=== PATIENT | female | born 1980 | race Caucasian/White ===

== ENCOUNTER 2017-08-31 17:26 | Inpatient (IN) | payer MEDICAID, SELFPAY ==
[2017-08-31] VITALS (9 sets, daily range): BP systolic 118–136; BP diastolic 56–86; PULSE 83–94; RESP 14–16; TEMP 36.6–37.1; O2SAT 95–100; BMI 28.0; BMI 30.2; BMI 30.3
--- NOTE | 2017-08-31 18:12 | CT_ITS ---
STUDY: CT BRAIN WITHOUT CONTRAST REASON FOR EXAM: Female, 36 years old. Confusion RADIATION DOSAGE (If Supplied By Facility): CTDIvol = ( 44.99 ) mGy, DLP = ( 711.75 ) mGycm TECHNIQUE: Transaxial CT imaging of the brain was performed without administration of intravenous contrast material. Individualized dose optimization techniques were used for this CT. COMPARISON: None. FINDINGS: Normal soft tissue structures. Normal calvarium. Normal size ventricles and extra-axial spaces for the patient's age. Normal white matter tracts of the cerebral hemispheres. Normal basal ganglia and thalami. Normal brainstem. Normal cerebellum. There is no intracranial hemorrhage. There are no findings of an acute ischemic infarction. Normal visualized paranasal sinuses. CT/Brain/Head without Contrast IMPRESSION: Normal unenhanced CT scan of the brain. No acute intracranial process. Electronically Signed: Angelito Dangelo DO at 19:31 EDT , Service support ,
[2017-08-31 18:29] LABS: Bacteria 0 SEEN /hpf (None Seen); Red Blood Cells-Urine 0 SEEN /hpf (0-5); White Blood Cells 0 SEEN /hpf (0-5)
[2017-08-31 18:33] LABS: Absolute Lymphocyte Count 1.39 X10^3/ul (0.83-4.51); Absolute Neutrophil Count 2.9 X10^3/uL (2.0-7.7); Basophil# 0.01 X10^3/uL; Basophil% 0.2 % (0-1); Eosinophil# 0.12 X10^3/uL; Eosinophils% 2.4 % (0-5); Hematocrit 21.5 % (37-47); Lymphocyte # 1.39 X10^3/ul (4.0); Lymphocyte % 28.3 % (19-41); Mean Corp Hgb Conc 24.2 g/gl (32-36); Mean Corpuscular Hgb 16.9 pg (27.0-32.0); Mean Corpuscular Volume 69.8 fL (81-99); Mean Platelet Vol. 9.1 fl (6.2-12.0); Monocyte# 0.49 X10^3/uL; Neutrophil # 2.91 X10^3/uL (2.7-7.7); Neutrophil % 59.1 % (47-70); Platelet Count 171 K/mm3 (150-450); RBC Distribution Width CV 21.8 % (11.6-14.6); RBC Distribution Width SD 53.8 fl (35.1-43.9); Red Blood Count 3.08 M/mm3 (4.2-5.4); White Blood Count 4.9 K/mm3 (4.4-11.0)
[2017-08-31 18:34] LABS: Color, Urine Yellow (Yellow); Glucose, Dipstick Normal (Normal); Ketone-Dipstick 5 mg/dl (Negative); Leukocyte Esterase-Dipstick 25 /ul (Negative); Nitrite-Dipstick Negative (Negative); Occult Blood-Urine 25 /ul (Negative); Protein-Dipstick 15 mg/dl (Negative); Specific Gravity, Urine 1.025 (1.002-1.030); Urine Clarity Clear (Clear); Urine Urobilinogen 4 mg/dl (Normal)
[2017-08-31 18:34] LABS: Hemoglobin 5.2 g/dl (12.0-15.0)
[2017-08-31 18:35] LABS: Differential Indicated SCAN CRITERIA MET; POSITIVE COUNT YES; POSITIVE DIFFERENTIAL NO; POSITIVE MORPHOLOGY YES
--- NOTE | 2017-08-31 18:35 | ED.RN ---
LAB RESULTED HGB IS 5.2, PHYSICIAN NOTIFIED
[2017-08-31 18:38] LABS: Urine Bilirubin Dipstick 1 mg/dL (Negative)
[2017-08-31 18:40] LABS: Squamous Epithelial Cells - UA 0-5 SEEN /hpf (5-10)
[2017-08-31 18:41] LABS: Mucous, Urine 4+ /hpf (<or=2+)
[2017-08-31 18:44] LABS: Anion Gap 7 (5-15); BUN 8 mg/dL (7-18); BUN/Creat Ratio 14.7 RATIO (10-20); Calcium,Total 7.9 mg/dL (8.5-10.1); Chloride 108 mmol/L (98-107); Creatinine, Serum 0.54 mg/dL (0.55-1.02); EST Glomerular Filtration Rate 133 mL/min (>60); Est Glom Filt Rate - Afr Amer 161 mL/min (>60); Estimated Creatinine Clearance 121.98 ml/min; Glucose 113 mg/dL (74-106); Potassium 3.4 mmol/L (3.5-5.1); Sodium Level 140 mmol/L (136-145)
[2017-08-31 18:51] LABS: Pregnancy, Serum, hCG Quali. NEGATIVE Negative (0-9 Nonpreg)
[2017-08-31 19:01] LABS: Amphetamine Urine VISTA POSITIVE (<1000 ng/mL); Barbiturate Urine VISTA NEGATIVE (< 200 ng/mL); Benzodiazepine Urine VISTA NEGATIVE (< 200 ng/mL); Cocaine Urine VISTA NEGATIVE (< 300 ng/mL); Ecstacy Urine VISTA POSITIVE (< 500 ng/mL); Methadone Urine VISTA NEGATIVE (< 300 ng/mL); PCP Urine VISTA NEGATIVE (< 25 ng/mL); THC Urine VISTA NEGATIVE (< 50 ng/mL); Vista UDS pH Range 5
--- NOTE | 2017-08-31 19:05 | ED.RN ---
LAB CALLS WITH CRITICAL RESULT, REPEAT HEMAGLOBIN 5.2, DR. GARDNER MADE AWARE.
[2017-08-31 19:08] LABS: Hemoglobin 5.2 g/dl (12.0-15.0)
[2017-08-31 19:30] LABS: Alcohol, Blood (Medical)-Serum < 3.0 mg/dL
[2017-08-31 19:31] LABS: Microcytosis 3+; Platelet Estimate ADEQUATE (ADEQ); Polychromasia RARE
[2017-08-31 19:32] LABS: Anisocytosis 1+; Hypochromasia 3+
--- NOTE | 2017-08-31 19:55 | PCM.HP.STD ---
Problem List (1) GERD (gastroesophageal reflux disease) Status: Chronic Qualifiers: Esophagitis presence: esophagitis presence not specified Qualified Code(s): K21.9 - Gastro-esophageal reflux disease without esophagitis (2) Chronic pain syndrome Status: Chronic (3) Anxiety Status: Chronic (4) Tobacco use Status: Chronic (5) Polysubstance abuse Status: Chronic (6) Anemia Status: Acute Qualifiers: Anemia type: unspecified type Qualified Code(s): D64.9 - Anemia, unspecified History of Present Illness Date of Admission: 08/31/17 Chief Complaint: Confusion, fatigue. The patient is a 36 y/o F w/ PMHx: Fe Deficiency Anemia, GERD, Chronic Pain Syndrome, Anxiety/ADHD, Tobacco use, Polysubstance abuse who presents to the [facility] ED on 08/31/17 with 4-5 day history of confusion, fatigue, lethargy intermittently, noted have to been pulled over per the police while driving in [facility] over the weekend but kept insisting to the officer that she was in [place]. She denies any history of black or bright red blood per rectum. She does note history of gastric bypass ~10 years prior and has not been taking the vitamins she was recommended. In the ED work-up included T 97.9, HR 93, BP 118/57, RR 16, 99% on RA, CBC w/ WBC 4.9, Hgb 5.2, MCV 69.8, Plt 171 without marked shift, BMP w/ K 3.4, Chl 108, glucose 113, negative , UA not marked appearing, CT head without acute findings, UDS w/ opiates, amphetamine, MDMA-methampetamine, EtOH negative. Past Medical History Past Medical History (Chronic Problems): Chronic Problems GERD (gastroesophageal reflux disease) (Chronic) Chronic pain syndrome (Chronic) Anxiety (Chronic) Tobacco use (Chronic) Polysubstance abuse (Chronic) Allergies Penicillins Allergy (Verified 08/31/17 17:28) Anaphylaxis venlafaxine HCl [From Effexor] Adverse Reaction (Verified 08/31/17 17:28) Other Home Medications: Ambulatory Orders Medication Instructions Recorded Omeprazole [Prilosec] 20 mg PO DAILY 12/27/15 Lorazepam [Ativan] 1 mg PO TID 01/13/16 Oxycodone HCl/Acetaminophen 1 - 2 tablet PO Q6H PRN PRN #60 01/28/16 [Percocet 5/325] tablet Ibuprofen [Ibu] 800 mg PO Q6H PRN PRN 08/31/17 Surgical History: - - Tonsillectomy, bilateral tubal ligation, gastric bypass. Psychiatric History: Anxiety, Attn. deficit disorder FEE CLERK History: No pertinent FEE CLERK history Lives: With Family - She notes she lives at home with her 15-year-old and 12-year-old child. She does have a 21-year-old child who is currently sitting her children. Smoking Status: Current every day smoker Tobacco Use: Cigarettes - Approximately one half pack per day tobacco use. Alcohol: Occasional - She notes intermittent alcohol intake, approximately every 1-2 weeks socially. Drugs: None - *Family History Maternal History Items: Heart Disease, Hypertension Paternal History Items: Heart Disease, Hypertension Review of Systems Constitutional: Reports: Malaise, Weakness, Fatigue. Denies: Chills, Fever, Weight Change HEENT: Denies: Head Aches, Sinus Congestion, Sinus Drainage Cardiovascular: Denies: Chest Pain, Palpitations Respiratory: Denies: Cough, Shortness of breath at rest, Sputum production Gastrointestinal: Denies: Abdominal Pain, Nausea, Vomiting Genitourinary: Denies: Dysuria Musculoskeletal: Denies: Joint Pain, Joint Tenderness Skin: Reports: Skin Changes. Denies: Rash, Wounds Neurological: Reports: Confusion. Denies: Focal weakness, Numbness, Tingling Psychiatric: Reports: Anxiety. Denies: Depression, Homicidal Ideations, Suicidal Ideations Hematologic/ Lymphatic: Reports: Anemia. Denies: Easy Bruising, Easy Bleeding VTE Information - Inpt Only VTE Present on Admission: No VTE Mechan Device Prophylaxis: SCD's VTE Pharm Prophylaxis ordered?: No Reason prophylaxis not ordered:: Medical Contraindication Patient Problems: Active and Suspected Problems Anemia (Acute) Subjective: Seated upright in the ED bed, NAD, currently oriented and alert but does admit that she has been intermittently confused. Objective: Physical Examination: General: awake, alert, oriented x 3 and cooperative, seated upright in the ED bed in no apparent distress. Skin: pale color, turgor, no icterus, cyanosis, scattered picked regions. HEENT: AT/NC, EOMI, PERRLA, mildly dry MM, no carotid bruits or JVD noted. Lungs: CTA bilaterally, moderate effort, mild decrease BL bases, no rales, ronchi or wheezing. Heart: Regular rate and rhythm; no gallop, rub audible. Abdomen: soft, NTTP, ND, normal BS, no HSM. Extremities: no cyanosis, clubbing, or edema. Neurological: patient awake, alert, oriented as noted; cognitive function appears currently intact; pupils equally reactive to light and accomodation; cranial nerves II-XII grossly normal, moving all 4 extremities, no focal deficits, strength mild to moderately globally decreased. Psychiatric: affect appears normal, mildly odd behavior, no acute evidence of depressive or anxiety feelings, very hyper. - Physical Exam Vital Signs Temp Pulse Resp BP Pulse Ox 97.9 F 91 16 128/56 H 100 08/31/17 17:27 08/31/17 19:34 08/31/17 19:34 08/31/17 19:34 08/31/17 19:34 Oxygen Delivery Method Room Air Weight: 163 lb 12.855 oz Body Mass Index (BMI) 28.0 Laboratory Tests Past 24 Hrs 08/31/17 08/31/17 08/31/17 17:44 17:44 18:23 WBC 4.9 RBC 3.08 L Hgb 5.2 L* Hct 21.5 L MCV 69.8 L MCH 16.9 L MCHC 24.2 L RDW 21.8 H RDW Differential 53.8 H Plt Count 171 MPV 9.1 Immature Gran % (Auto) 0.000 Neut % (Auto) 59.1 Lymph % (Auto) 28.3 [place] % (Auto) 10.0 Eos % (Auto) 2.4 Baso % (Auto) 0.2 Absolute Neuts (auto) 2.9 Absolute Lymphs (auto) 1.39 Total Counted Not Reportable Diff Path Review May foll Platelet Estimate ADEQUATE Polychromasia RARE Hypochromasia 3+ Anisocytosis 1+ Microcytosis 3+ Sodium Potassium Chloride Carbon Dioxide Anion Gap BUN Creatinine Estim Creat Clear Calc Est GFR (MDRD) Af Amer Est GFR (MDRD) Non-Af BUN/Creatinine Ratio Glucose Calcium Serum , Qual Urine Color Yellow Urine Clarity Clear Urine pH 5.0 Ur Specific [place] 1.025 Urine Protein 15 H Urine Glucose (UA) Normal Urine Ketones 5 H Urine Occult Blood 25 H Urine Nitrite Negative Urine Bilirubin 1 H Urine Urobilinogen 4 H Ur Leukocyte Esterase 25 H Urine RBC 0 SEEN Urine WBC 0 SEEN Ur Squamous Epith Cells 0-5 SEEN Urine Bacteria 0 SEEN Urine Mucus 4+ Urine Opiates Screen POSITIVE H Urine Methadone Screen NEGATIVE Ur Barbiturates Screen NEGATIVE Ur Phencyclidine Scrn NEGATIVE Ur Amphetamines Screen POSITIVE H U Methamphetamin-MDMA POSITIVE H U Benzodiazepines Scrn NEGATIVE Urine Cocaine Screen NEGATIVE U Cannabinoids Screen NEGATIVE Ur Drug Screen Comment Ethyl Alcohol Blood Type Antibody Screen Crossmatch 08/31/17 08/31/17 08/31/17 18:23 18:23 18:23 WBC RBC Hgb Hct MCV MCH MCHC RDW RDW Differential Plt Count MPV Immature Gran % (Auto) Neut % (Auto) Lymph % (Auto) [place] % (Auto) Eos % (Auto) Baso % (Auto) Absolute Neuts (auto) Absolute Lymphs (auto) Total Counted Diff Path Review Platelet Estimate Polychromasia Hypochromasia Anisocytosis Microcytosis Sodium 140 Potassium 3.4 L Chloride 108 H Carbon Dioxide 25.0 Anion Gap 7 BUN 8 Creatinine 0.54 L Estim Creat Clear Calc 121.98 Est GFR (MDRD) Af Amer 161 Est GFR (MDRD) Non-Af 133 BUN/Creatinine Ratio 14.7 Glucose 113 H Calcium 7.9 L Serum , Qual NEGATIVE Urine Color Urine Clarity Urine pH Ur Specific [place] Urine Protein Urine Glucose (UA) Urine Ketones Urine Occult Blood Urine Nitrite Urine Bilirubin Urine Urobilinogen Ur Leukocyte Esterase Urine RBC Urine WBC Ur Squamous Epith Cells Urine Bacteria Urine Mucus Urine Opiates Screen Urine Methadone Screen Ur Barbiturates Screen Ur Phencyclidine Scrn Ur Amphetamines Screen U Methamphetamin-MDMA U Benzodiazepines Scrn Urine Cocaine Screen U Cannabinoids Screen Ur Drug Screen Comment Ethyl Alcohol < 3.0 Blood Type Antibody Screen Crossmatch 08/31/17 08/31/17 08/31/17 18:35 18:35 18:55 WBC RBC Hgb 5.2 L* Hct MCV MCH MCHC RDW RDW Differential Plt Count MPV Immature Gran % (Auto) Neut % (Auto) Lymph % (Auto) [place] % (Auto) Eos % (Auto) Baso % (Auto) Absolute Neuts (auto) Absolute Lymphs (auto) Total Counted Diff Path Review Platelet Estimate Polychromasia Hypochromasia Anisocytosis Microcytosis Sodium Potassium Chloride Carbon Dioxide Anion Gap BUN Creatinine Estim Creat Clear Calc Est GFR (MDRD) Af Amer Est GFR (MDRD) Non-Af BUN/Creatinine Ratio Glucose Calcium Serum , Qual Urine Color Urine Clarity Urine pH Ur Specific [place] Urine Protein Urine Glucose (UA) Urine Ketones Urine Occult Blood Urine Nitrite Urine Bilirubin Urine Urobilinogen Ur Leukocyte Esterase Urine RBC Urine WBC Ur Squamous Epith Cells Urine Bacteria Urine Mucus Urine Opiates Screen Urine Methadone Screen Ur Barbiturates Screen Ur Phencyclidine Scrn Ur Amphetamines Screen U Methamphetamin-MDMA U Benzodiazepines Scrn Urine Cocaine Screen U Cannabinoids Screen Ur Drug Screen Comment Ethyl Alcohol Blood Type A NEGATIVE Antibody Screen NEGATIVE Crossmatch See Detail Assessment/Plan All Active Problems Anemia (Acute) The patient is a 36 y/o F w/ PMHx: Fe Deficiency Anemia, GERD, Chronic Pain Syndrome, Anxiety/ADHD, Tobacco use, Polysubstance abuse who presents to the [facility] ED on 08/31/17 with 4-5 day history of confusion, fatigue, lethargy intermittently. (1) Acute on Chronic Fe Deficiency Anemia: Unclear etiology, likely associated w/ gastric bypass and not taking appropriate supplementation but must rule out GI etiology also especially given serial usage of IBU for chornic pain, will obtain guiac, iron panel/ferritin/vitamin B12/folic acid per ED prior to PRBC administration. Admission Hgb 5.2, will admit to PCU given stable VS, obtain serial H+H q 6 hours, T+C per ED with 2 u PRBC pending, maintain on IV PPI, NPO status, pending Surgery consultation as well as Hem/Onc as suspect likely secondary to deficiency. (2) Hypokalemia: Admission K 3.4, will supplement and repeat BMP in AM. (3) Anxiety, ADHD: In the ED alert and oriented, will continue home regimen ativan 1 mg po TID and adderall 20 mg BID (notes when taking classes takes it 20 mg TID). Of note UDS with NO BZD present. (3) Chronic Pain Syndrome: Maintained outpatient on chronic percocet, UDS w/ + opiates. (4) Tobacco Abuse: Encouraged cessation, inpatient consultation per RT, NR if desired. (5) GERD: IV PPI as noted. (6) DVT Prophylaxis: SCDs, defer chemoprophylaxis given acute presentation. Code Visit Inpatient E&M: 85732 Init Hosp L3
--- NOTE | 2017-08-31 20:07 | HP.PCM_ITS ---
Problem List (1) GERD (gastroesophageal reflux disease) Status: Chronic Qualifiers: Esophagitis presence: esophagitis presence not specified Qualified Code(s) : K21.9 - Gastro-esophageal reflux disease without esophagitis (2) Chronic pain syndrome Status: Chronic (3) Anxiety Status: Chronic (4) Tobacco use Status: Chronic (5) Polysubstance abuse Status: Chronic (6) Anemia Status: Acute Qualifiers: Anemia type: unspecified type Qualified Code(s): D64.9 - Anemia, unspecified History of Present Illness Date of Admission: 08/31/17 Chief Complaint: Confusion, fatigue. The patient is a 36 y/o F w/ PMHx: Fe Deficiency Anemia, GERD, Chronic Pain Syndrome, Anxiety/ADHD, Tobacco use, Polysubstance abuse who presents to the [facility] ED on 08/31/17 with 4-5 day history of confusion, fatigue, lethargy intermittently, noted have to been pulled over per the police while driving in [facility] over the weekend but kept insisting to the officer that she was in [place]. She denies any history of black or bright red blood per rectum. She does note history of gastric bypass ~10 years prior and has not been taking the vitamins she was recommended. In the ED work-up included T 97.9, HR 93, BP 118/ 57, RR 16, 99% on RA, CBC w/ WBC 4.9, Hgb 5.2, MCV 69.8, Plt 171 without marked shift, BMP w/ K 3.4, Chl 108, glucose 113, negative , UA not marked appearing, CT head without acute findings, UDS w/ opiates, amphetamine, MDMA- methampetamine, EtOH negative. Past Medical History Past Medical History (Chronic Problems): Chronic Problems GERD (gastroesophageal reflux disease) (Chronic) Chronic pain syndrome (Chronic) Anxiety (Chronic) Tobacco use (Chronic) Polysubstance abuse (Chronic) Allergies Penicillins Allergy (Verified 08/31/17 17:28) Anaphylaxis venlafaxine HCl [From Effexor] Adverse Reaction (Verified 08/31/17 17:28) Other Home Medications: Ambulatory Orders Medication Instructions Recorded Omeprazole [Prilosec] 20 mg PO DAILY 12/27/15 Lorazepam [Ativan] 1 mg PO TID 01/13/16 Oxycodone HCl/Acetaminophen 1 - 2 tablet PO Q6H PRN PRN #60 01/28/16 [Percocet 5/325] tablet Ibuprofen [Ibu] 800 mg PO Q6H PRN PRN 08/31/17 Surgical History: - - Tonsillectomy, bilateral tubal ligation, gastric bypass. Psychiatric History: Anxiety, Attn. 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 She does have a 21-year-old child who is currently sitting her children. Smoking Status: Current every day smoker Tobacco Use: Cigarettes - Approximately one half pack per day tobacco use. Alcohol: Occasional - She notes intermittent alcohol intake, approximately every 1-2 weeks socially. Drugs: None - *Family History Maternal History Items: Heart Disease, Hypertension Paternal History Items: Heart Disease, Hypertension Review of Systems Constitutional: Reports: Malaise, Weakness, Fatigue. Denies: Chills, Fever, Weight Change HEENT: Denies: Head Aches, Sinus Congestion, Sinus Drainage Cardiovascular: Denies: Chest Pain, Palpitations Respiratory: Denies: Cough, Shortness of breath at rest, Sputum production Gastrointestinal: Denies: Abdominal Pain, Nausea, Vomiting Genitourinary: Denies: Dysuria Musculoskeletal: Denies: Joint Pain, Joint Tenderness Skin: Reports: Skin Changes. Denies: Rash, Wounds Neurological: Reports: Confusion. Denies: Focal weakness, Numbness, Tingling Psychiatric: Reports: Anxiety. Denies: Depression, Homicidal Ideations, Suicidal Ideations Hematologic/ Lymphatic: Reports: Anemia. Denies: Easy Bruising, Easy Bleeding VTE Information - Inpt Only VTE Present on Admission: No VTE Mechan Device Prophylaxis: SCD's VTE Pharm Prophylaxis ordered?: No Reason prophylaxis not ordered:: Medical Contraindication Patient Problems: Active and Suspected Problems Anemia (Acute) Subjective: Seated upright in the ED bed, NAD, currently oriented and alert but does admit that she has been intermittently confused. Objective: Physical Examination: General: awake, alert, oriented x 3 and cooperative, seated upright in the ED bed in no apparent distress. Skin: pale color, turgor, no icterus, cyanosis, scattered picked regions. HEENT: AT/NC, EOMI, PERRLA, mildly dry MM, no carotid bruits or JVD noted. Lungs: CTA bilaterally, moderate effort, mild decrease BL bases, no rales, ronchi or wheezing. Heart: Regular rate and rhythm; no gallop, rub audible. Abdomen: soft, NTTP, ND, normal BS, no HSM. Extremities: no cyanosis, clubbing, or edema. Neurological: patient awake, alert, oriented as noted; cognitive function appears currently intact; pupils equally reactive to light and accomodation; cranial nerves II-XII grossly normal, moving all 4 extremities, no focal deficits, strength mild to moderately globally decreased. Psychiatric: affect appears normal, mildly odd behavior, no acute evidence of depressive or anxiety feelings, very hyper. - Physical Exam Vital Signs Temp Pulse Resp BP Pulse Ox 97.9 F 91 16 128/56 H 100 08/31/17 17:27 08/31/17 19:34 08/31/17 19:34 08/31/17 19:34 08/31/17 19:34 Oxygen Delivery Method Room Air Weight: 163 lb 12.855 oz Body Mass Index (BMI) 28.0 Laboratory Tests Past 24 Hrs 08/31/17 08/31/17 08/31/17 17:44 17:44 18:23 WBC 4.9 RBC 3.08 L Hgb 5.2 L* Hct 21.5 L MCV 69.8 L MCH 16.9 L MCHC 24.2 L RDW 21.8 H RDW Differential 53.8 H Plt Count 171 MPV 9.1 Immature Gran % (Auto) 0.000 Neut % (Auto) 59.1 Lymph % (Auto) 28.3 [place] % (Auto) 10.0 Eos % (Auto) 2.4 Baso % (Auto) 0.2 Absolute Neuts (auto) 2.9 Absolute Lymphs (auto) 1.39 Total Counted Not Reportable Diff Path Review May foll Platelet Estimate ADEQUATE Polychromasia RARE Hypochromasia 3+ Anisocytosis 1+ Microcytosis 3+ Sodium Potassium Chloride Carbon Dioxide Anion Gap BUN Creatinine Estim Creat Clear Calc Est GFR (MDRD) Af Amer Est GFR (MDRD) Non-Af BUN/Creatinine Ratio Glucose Calcium Serum , Qual Urine Color Yellow Urine Clarity Clear Urine pH 5.0 Ur Specific [place] 1.025 Urine Protein 15 H Urine Glucose (UA) Normal Urine Ketones 5 H Urine Occult Blood 25 H Urine Nitrite Negative Urine Bilirubin 1 H Urine Urobilinogen 4 H Ur Leukocyte Esterase 25 H Urine RBC 0 SEEN Urine WBC 0 SEEN Ur Squamous Epith Cells 0-5 SEEN Urine Bacteria 0 SEEN Urine Mucus 4+ Urine Opiates Screen POSITIVE H Urine Methadone Screen NEGATIVE Ur Barbiturates Screen NEGATIVE Ur Phencyclidine Scrn NEGATIVE Ur Amphetamines Screen POSITIVE H U Methamphetamin-MDMA POSITIVE H U Benzodiazepines Scrn NEGATIVE Urine Cocaine Screen NEGATIVE U Cannabinoids Screen NEGATIVE Ur Drug Screen Comment Ethyl Alcohol Blood Type Antibody Screen Crossmatch 08/31/17 08/31/17 08/31/17 18:23 18:23 18:23 WBC RBC Hgb Hct MCV MCH MCHC RDW RDW Differential Plt Count MPV Immature Gran % (Auto) Neut % (Auto) Lymph % (Auto) [place] % (Auto) Eos % (Auto) Baso % (Auto) Absolute Neuts (auto) Absolute Lymphs (auto) Total Counted Diff Path Review Platelet Estimate Polychromasia Hypochromasia Anisocytosis Microcytosis Sodium 140 Potassium 3.4 L Chloride 108 H Carbon Dioxide 25.0 Anion Gap 7 BUN 8 Creatinine 0.54 L Estim Creat Clear Calc 121.98 Est GFR (MDRD) Af Amer 161 Est GFR (MDRD) Non-Af 133 BUN/Creatinine Ratio 14.7 Glucose 113 H Calcium 7.9 L Serum , Qual NEGATIVE Urine Color Urine Clarity Urine pH Ur Specific [place] Urine Protein Urine Glucose (UA) Urine Ketones Urine Occult Blood Urine Nitrite Urine Bilirubin Urine Urobilinogen Ur Leukocyte Esterase Urine RBC Urine WBC Ur Squamous Epith Cells Urine Bacteria Urine Mucus Urine Opiates Screen Urine Methadone Screen Ur Barbiturates Screen Ur Phencyclidine Scrn Ur Amphetamines Screen U Methamphetamin-MDMA U Benzodiazepines Scrn Urine Cocaine Screen U Cannabinoids Screen Ur Drug Screen Comment Ethyl Alcohol < 3.0 Blood Type Antibody Screen Crossmatch 08/31/17 08/31/17 08/31/17 18:35 18:35 18:55 WBC RBC Hgb 5.2 L* Hct MCV MCH MCHC RDW RDW Differential Plt Count MPV Immature Gran % (Auto) Neut % (Auto) Lymph % (Auto) [place] % (Auto) Eos % (Auto) Baso % (Auto) Absolute Neuts (auto) Absolute Lymphs (auto) Total Counted Diff Path Review Platelet Estimate Polychromasia Hypochromasia Anisocytosis Microcytosis Sodium Potassium Chloride Carbon Dioxide Anion Gap BUN Creatinine Estim Creat Clear Calc Est GFR (MDRD) Af Amer Est GFR (MDRD) Non-Af BUN/Creatinine Ratio Glucose Calcium Serum , Qual Urine Color Urine Clarity Urine pH Ur Specific [place] Urine Protein Urine Glucose (UA) Urine Ketones Urine Occult Blood Urine Nitrite Urine Bilirubin Urine Urobilinogen Ur Leukocyte Esterase Urine RBC Urine WBC Ur Squamous Epith Cells Urine Bacteria Urine Mucus Urine Opiates Screen Urine Methadone Screen Ur Barbiturates Screen Ur Phencyclidine Scrn Ur Amphetamines Screen U Methamphetamin-MDMA U Benzodiazepines Scrn Urine Cocaine Screen U Cannabinoids Screen Ur Drug Screen Comment Ethyl Alcohol Blood Type A NEGATIVE Antibody Screen NEGATIVE Crossmatch See Detail Assessment/Plan All Active Problems Anemia (Acute) The patient is a 36 y/o F w/ PMHx: Fe Deficiency Anemia, GERD, Chronic Pain Syndrome, Anxiety/ADHD, Tobacco use, Polysubstance abuse who presents to the [facility] ED on 08/31/17 with 4-5 day history of confusion, fatigue, lethargy intermittently. (1) Acute on Chronic Fe Deficiency Anemia: Unclear etiology, likely associated w / gastric bypass and not taking appropriate supplementation but must rule out GI etiology also especially given serial usage of IBU for chornic pain, will obtain guiac, iron panel/ferritin/vitamin B12/folic acid per ED prior to PRBC administration. Admission Hgb 5.2, will admit to PCU given stable VS, obtain serial H+H q 6 hours, T+C per ED with 2 u PRBC pending, maintain on IV PPI, NPO status, pending Surgery consultation as well as Hem/Onc as suspect likely secondary to deficiency. (2) Hypokalemia: Admission K 3.4, will supplement and repeat BMP in AM. (3) Anxiety, ADHD: In the ED alert and oriented, will continue home regimen ativan 1 mg po TID and adderall 20 mg BID (notes when taking classes takes it 20 mg TID). Of note UDS with NO BZD present. (3) Chronic Pain Syndrome: Maintained outpatient on chronic percocet, UDS w/ + opiates. (4) Tobacco Abuse: Encouraged cessation, inpatient consultation per RT, NR if desired. (5) GERD: IV PPI as noted. (6) DVT Prophylaxis: SCDs, defer chemoprophylaxis given acute presentation. Code Visit Inpatient E&M: 05957 Init Hosp L3
--- NOTE | 2017-08-31 20:16 | ED.VISSUMM ---
- ER Visit Summary Date of Service: 08/31/17 Chief Complaint: Confusion History of Present Illness: The patient is a [address] Germain. She reports that over the last 4-5 days that she is awake and interacting people but that she do not know what I am doing. States is happening twice a day. The longest episode lasted 2-1/2 hours. She denies any new medications. She denies any drug use. She has had subjective fever and chills for the past 2 weeks. Review of systems: Cardiovascular: No chest pain, palpitations. Respiratory: No cough, shortness of breath, dyspnea on exertion. Gastrointestinal: No abdominal pain, nausea, vomiting, diarrhea, melena, or hematochezia. Genitourinary: No dysuria, frequency, hematuria. Skin: No rash. Neuro: No headache, numbness, weakness. Physical Examination: Vitals: Stable. Afebrile. General: Well-nourished and well-developed. Head: Normocephalic atraumatic. Neck: Supple, no lymphadenopathy. No JVD. Nontender. Cardiovascular: Regular rate and rhythm. No murmurs. Respiratory: No respiratory distress. Clear to auscultation bilaterally. Abdominal: Soft, nontender, nondistended, normal bowel sounds. No guarding, rebound, or peritoneal signs. Back: Nontender. Extremities: Nontender, no edema. Skin: Normal color, no rash. Neurologic: Alert and oriented ?3. Cranial nerves II through XII are intact. Normal strength and sensation. Psych: Normal affect. Test Results: CBC is remarkable for a hemoglobin of 5.2. This was repeated and is 5.2 again. Last hemoglobin was 8.1 September 01, 2014. Chem-7 is remarkable for potassium 3.4, chloride 108, glucose 113, calcium 7.9, creatinine 0.54. UA is negative. test is negative. CT brain shows no acute disease. Tox screen shows opiates, methamphetamines, and amphetamines. Blood alcohol level 0. Emergency Department Course and Treatment: When the patient's hemoglobin returned I had a prolonged discussion with her. No known source of bleeding. She denies any trauma or bloody noses. No blood in her stools. She denies heavy periods. Treatment Plan: Patient was typed and crossed for 2 units of packed red blood cells. I do not think this explains her presenting complaint. However, she will be admitted to the hospital and transfused. She was discussed with Dr. Beasley. Disposition: Admitted in stable condition. Impression: 1. Anemia. 2. Transient confusion. This note was generated with [employer] dictation software. It may contain incorrect words, spelling, and punctuation that were not noted in review of the chart prior to signing ED Disposition - Plan for ED Patient: Chief Complaint: Confusion Referrals: Vance Cardona DO [Primary Care Provider] -
[2017-08-31 21:08] LABS: Vitamin B12 467 pg/mL (211-911)
[2017-08-31 21:11] LABS: Ferritin 2 ng/mL (8-252); Iron 17 ug/dL (50-170); Iron Binding Capacity,Total 463 ug/dL (250-450); PERCENT IRON SATURATION 3.7 % (15.0-55.0)
[2017-08-31] MEDS: oxyCODONE 5 MG Tablet PO (22:43)
[2017-08-31] MEDS: LORazepam 1 MG Tablet PO (22:44)
[2017-08-31 23:37] LABS: Hematocrit 22.8 % (37-47); Hemoglobin 6.1 g/dl (12.0-15.0)
[2017-09-01] VITALS (24 sets, daily range): BP systolic 131–157; BP diastolic 66–114; PULSE 71–91; RESP 14–18; TEMP 36.9–37.4; O2SAT 95–98; BMI 30.2
--- NOTE | 2017-09-01 | IMM_PTH ---
PATIENT: SANAZ MORRIS LOC: [facility] U#:[id number] AGE/SX: 36/F ROOM: [facility] RE08/31/[address]: Dr. Brittani Hua DO : 1980 BED: 1 DIS: 09/02/2017 SPEC #: [id number] RECD: 09/05/17 16:25 STATUS: HELEN REQ #: [id number] LUBNA: 09/01/17 00:[address]: Freddy Sarmiento DEPT: IMMUNOHISTOCHEMISTRY RECD BY: Joanne Locke ENTERED: 09/08/17 16:27 SP TYPE: IMMUNO OTHR DR: MD Dr. Brittani Caldwell DO Dr. Mansour Isckarus, MD Dr. Richard Guttman, MD Dr. Robert Lindsay, DO Tissues: Stomach, NOS Procedures: H Pylori (initial) Comments: @ Ordering doctor for H.PYLORI edited from to DR.RGUTTM Marcial by ROBIN at 09/08/17 170 @ Submitting doctor edited from to DR.RGUTTM Marcial by ROBIN at 09/08/171700 PHYSICIAN & INSTITUTION [place] [id number] SPECIMEN INFORMATION: Tissue Source: Gastric pouch biopsy Clinical Info: azul Serrano Specimen Number: [id number] CPT code: 27090 METHODOLOGY: Deparaffinized sections of prefer/formalin-fixed tissue or PAP/DQ stained slides are incubated with monoclonal/polyclonal antibodies/oligonucleotide probes. Localization is made via biotin free immunoperoxidase method. Appropriate controls are performed and reacted as expected. Results on target cell population are indicated in the following table: RESULTS: ANTIBODY / CLONE RESULT H Pylori (polyclonal) negative These tests were developed and their performance characteristics determined by [facility]. They may not have been cleared or approved by the [place]. Food and Drug Administration. The FDA has determined that such clearance or approval is not necessary. INTERPRETATION: Gastric pouch, biopsy: Negative for Helicobacter pylori organisms. AM:carmen 09/09/17
--- NOTE | 2017-09-01 01:50 | NURSING ---
Spoke with patient's mother, Yana, around 2330. Updated on patient status and POC.
[2017-09-01 04:56] LABS: Hemoglobin 6.8 g/dl (12.0-15.0)
[2017-09-01 05:10] LABS: Anion Gap 9 (5-15); BUN 5 mg/dL (7-18); BUN/Creat Ratio 12.5 RATIO (10-20); Calcium,Total 7.6 mg/dL (8.5-10.1); Chloride 109 mmol/L (98-107); EST Glomerular Filtration Rate 189 mL/min (>60); Est Glom Filt Rate - Afr Amer 229 mL/min (>60); Glucose 78 mg/dL (74-106); Potassium 4.1 mmol/L (3.5-5.1); Sodium Level 142 mmol/L (136-145)
--- NOTE | 2017-09-01 05:41 | PCM.PN.BLA ---
Progress Note 36-year-old female for whom I have been asked to see for anemia. The patient immediately upon my presentation to the room was combative. I discussed with her that I was being asked to see the anemia. I was recommending to her an upper endoscopy. I discussed with her that I did not feel that her anemia was the source of her confusion. I was recommending that we utilize anesthesia provided sedation for the upper scope because of her drug use at which point she furiously proclaimed that she was not taking any illicit drugs. She stated that she is prescribed Adderall although this is not on her drug list and her drug screen showed both amphetamine and methamphetamine. She began cursing stating all of the medications were prescribed for her. She stated that I was a stupid doctor and with her cursing I suggested to her that it would be best that I leave the room. At no point was a physical exam performed or any physical contact between myself and the patient. I excused myself and discussed with nursing that the patient was requesting that I not participate in her care because I was stupid. The consult was curtailed. Lizandro Berger MD
[2017-09-01] MEDS: oxyCODONE 5 MG Tablet PO ×2 (09:27→22:04)
[2017-09-01 10:02] LABS: Hematocrit 29.8 % (37-47); Hemoglobin 8.4 g/dl (12.0-15.0)
--- NOTE | 2017-09-01 10:55 | ONC.CON.INP2 ---
- Problem List (1) Iron (Fe) deficiency anemia Status: Chronic (2) S/P gastric bypass Status: Chronic Consult Referring Physician: Hospitalist service Consult Results: Severe chronic iron deficiency anemia Subjective Date of Service:: 09/01/17 Chief Complaint: Anemia History of Present Illness: Patient is a 36-year-old female admitted with an altered mental status and found to be severely anemic with a hemoglobin of 5 g per DL. Her past medical history is notable for status post gastric bypass surgery for obesity over 10 years earlier, chronic GERD on PPI therapy. Patient has been on oral iron in the past. She is premenopausal and unaware of any GI or urinary blood loss. Past Medical History: Chronic Problems S/P gastric bypass (Chronic) Iron (Fe) deficiency anemia (Chronic) GERD (gastroesophageal reflux disease) (Chronic) Chronic pain syndrome (Chronic) Anxiety (Chronic) Tobacco use (Chronic) Polysubstance abuse (Chronic) Past Medical/Surgical History: Past Medical History - Most Recent Inpatient Visit Past Medical History Start: 08/31/17 22:07 Text: Status: Complete Freq: ONCE Protocol: Document 08/31/17 22:28 [facility] (Rec: 08/31/17 22:33 [facility] [id number]) BMI Required to complete PMH What is Patient's BMI 30.3 Past Medical History Unable History Recalled Yes Query Text:Pt Unable/Family Not Present Neurologic Medical History Hx Stroke/TIA No Hx Dementia/Alzheimer's No Hx Parkinson's Disease No Hx Seizures No Hx Multiple Sclerosis No Hx Migraines No Cardiac Medical History VTE Present on Admission No Hx of Deep Vein Thrombosis/VTE/PE No Hx Hypertension No Hx Chest Pain/Angina No Hx Heart Attack No Hx Cardiac Surgery/Stents/Etc. No Hx Heart Failure No Hx Pacemaker/AICD No Hx Irregular Heartbeat and/or Afib No Hx Anticoagulant Therapy No Query Text:(Coumadin, Aspirin, Plavix, Xarelto, etc.) Hx Pain in Legs when Walking/Leg Cramps No Respiratory Medical History Hx COPD No Hx Emphysema No Hx Smoking Yes Smoking Status Current every day smoker Tobacco Use Cigarettes Hx Smoking Cessation Counseling No Hx Smoking Exposure No Hx Tobacco Use in last 12 months Yes Sent to [facility] Yes Hx Sleep Apnea No Do you snore loudly (louder than talking No or can be heard through closed doors)? Do you often feel tired/ fatigued/ No sleepy during daytime? Has anyone observed you stop breathing No during sleep? STOP Results Negative GI Medical History Hx Ulcer Yes Hx Hepatitis No Hx Cirrhosis No Hx GI Bleed No Hx Unplanned Weight Loss No Genitourinary Medical History Indwelling Catheter in Place on Arrival/ No Admission Hx Renal Disease No Hx Dialysis No Musculoskeletal History Hx Arthritis Yes Hx Rheumatoid Arthritis No Endocrine Medical History Hx Diabetes No Hx Thyroid Disease No Hematologic Medical History Hx of Blood Transfusion No Hx of Transfusion in last 3 Months No Ever experience any problems with No transfusion(s)? Hx of Preganancy in last 3 Months No Nurse Filling Out Transfusion & OHALE Questions: Date: 08/31/17 Time: 22:32 Psycho/Social Medical History Hx Depression No Hx Anxiety Yes Hx Behavior Disorder No Hx Alcohol Use Yes: SOCIALLY Hx Substance Use No Other Medical History Hx Blood Disorders No Hx Anemia No Hx Cancer No Hx Drug Resistant Organism No Wound/Pressure Injury Present on Arrival No /Admission Query Text:If yes, chart assessment in Shift/Clinical Findings Central Line/PICC/VAD Present on Arrival No /Admission Antibiotics within last 7 days? No Methicillin Resistant Staphylococcus aureus Screening Active MRSA No Risk for Readmission Number of Risk Factors 4 At Risk for Readmission Patient is At Risk For Readmission Patient is eligible for Call Back Y Maternal Family History: Heart Disease, Hypertension Paternal Family History: Heart Disease, Hypertension - Social History Lives: With Family - She notes she lives at home with her 15-year-old and 12-year-old child. She does have a 21-year-old child who is currently sitting her children. Smoking Status: Current every day smoker Tobacco Use: Cigarettes Alcohol: Occasional - She notes intermittent alcohol intake, approximately every 1-2 weeks socially. Drugs: None Allergies/Adverse Reactions: Allergy/AdvReac Type Severity Reaction Status Date / Time Penicillins Allergy Anaphylaxis Verified 08/31/17 17:28 venlafaxine HCl AdvReac Other Verified 08/31/17 17:28 [From Effexor] Review of Systems Constitutional:: Reports: Weakness, Fatigue. Denies: Fever, Sweats, Weight loss, Appetite change, Chills Cardiovascular:: Reports: Dyspnea on exertion Respiratory: Reports: Shortness of breath upon exertion. Denies: Cough, Hemoptysis, Shortness of Breath, Wheezing Gastrointestinal:: Reports: Reflux. Denies: Abdominal pain, Nausea, Vomiting, Diarrhea, Constipation, Hematochezia Genitourinary: Reports: - - Did not appreciate that her periods were particularly heavy or excessive. Denies: Dysuria, Hematuria, Flank pain Musculoskeletal:: Reports: - - Has chronic pain issues on narcotics Skin: Reports: Rash - On face and neck that she attributes to picking Neurological:: Reports: - - Admitted with an altered mental status. Denies: Headache, Dizziness, Visual changes, Tinnitus, Hearing loss Vital Signs Height 5 ft 1.5 in Weight: 73.9 kg Weight in Pounds 162.9 lbs Pulse Ox 95 Temperature 99.1 F Pulse Rate 81 Respiratory Rate 16 Blood Pressure 157/114 Blood Pressure Position Sitting - Physical Exam General: Alert, Oriented x3, No apparent distress, - - Unkempt HEENT: Atraumatic, PERRLA, EOMI, Normocephalic, - - Pale Oropharynx:: Dry mucosa Neck:: Supple, Trachea midline. Negative for: JVD, bilateral Cardiac:: Regular rate, Regular rhythm, Normal S1, Normal S2. Negative for: Murmur Lungs: Clear to auscultation, Excusion symmetrical. Negative for: Rhonchi, Wheezes Abdomen:: Soft, Non-tender, Non-distended. Negative for: Hepatosplenomegaly Extremities:: Negative for: Cyanosis, Edema Neurological: Neuro grossly intact Skin:: Rash - Papular rash over the chin and neck. Negative for: Lesions, Petechiae, Ecchymosis Psychiatric:: Appropriate affect, Euthymic Lymphatics:: Negative for: Cervical lymphadenopathy, Supraclavicular lymphadenopathy Laboratory Data: Laboratory Tests 09/01/17 09/01/17 09/01/17 Range/Units 09:55 04:38 04:38 Hgb 8.4 L 6.8 L (12.0-15.0) g/dl Hct 29.8 L 25.0 L (37-47) % Sodium 142 (136-145) mmol/L Potassium 4.1 (3.5-5.1) mmol/L Chloride 109 H (98-107) mmol/L Carbon Dioxide 24.0 (21.0-32.0) mmol/L Anion Gap 9 (5-15) BUN 5 L (7-18) mg/dL Creatinine 0.40 L (0.55-1.02) mg/dL Estim Creat Clear Calc 143.90 ml/min Est GFR (MDRD) Af Amer 229 (>60) mL/min Est GFR (MDRD) Non-Af 189 (>60) mL/min BUN/Creatinine Ratio 12.5 (10-20) RATIO Glucose 78 (74-106) mg/dL Calcium 7.6 L (8.5-10.1) mg/dL Magnesium (1.6-2.6) mg/dL Iron (50-170) ug/dL TIBC (250-450) ug/dL Iron Saturation (15.0-55.0) % Ferritin (8-252) ng/mL Vitamin B12 (211-911) pg/mL Folate (3.1-55.4) ng/mL 08/31/17 08/31/17 08/31/17 Range/Units 23:04 23:04 20:20 Hgb 6.1 L (12.0-15.0) g/dl Hct 22.8 L (37-47) % Sodium (136-145) mmol/L Potassium (3.5-5.1) mmol/L Chloride (98-107) mmol/L Carbon Dioxide (21.0-32.0) mmol/L Anion Gap (5-15) BUN (7-18) mg/dL Creatinine (0.55-1.02) mg/dL Estim Creat Clear Calc ml/min Est GFR (MDRD) Af Amer (>60) mL/min Est GFR (MDRD) Non-Af (>60) mL/min BUN/Creatinine Ratio (10-20) RATIO Glucose (74-106) mg/dL Calcium (8.5-10.1) mg/dL Magnesium 2.0 (1.6-2.6) mg/dL Iron 17 L (50-170) ug/dL TIBC 463 H (250-450) ug/dL Iron Saturation 3.7 L (15.0-55.0) % Ferritin 2 L (8-252) ng/mL Vitamin B12 (211-911) pg/mL Folate 15.00 (3.1-55.4) ng/mL 08/31/17 Range/Units 20:20 Hgb (12.0-15.0) g/dl Hct (37-47) % Sodium (136-145) mmol/L Potassium (3.5-5.1) mmol/L Chloride (98-107) mmol/L Carbon Dioxide (21.0-32.0) mmol/L Anion Gap (5-15) BUN (7-18) mg/dL Creatinine (0.55-1.02) mg/dL Estim Creat Clear Calc ml/min Est GFR (MDRD) Af Amer (>60) mL/min Est GFR (MDRD) Non-Af (>60) mL/min BUN/Creatinine Ratio (10-20) RATIO Glucose (74-106) mg/dL Calcium (8.5-10.1) mg/dL Magnesium (1.6-2.6) mg/dL Iron (50-170) ug/dL TIBC (250-450) ug/dL Iron Saturation (15.0-55.0) % Ferritin (8-252) ng/mL Vitamin B12 467 (211-911) pg/mL Folate (3.1-55.4) ng/mL Diagnostic Data: Diagnostic Data Brain CT 08/31/17 18:12 IMPRESSION: Normal unenhanced CT scan of the brain. No acute intracranial process. Electronically Signed: Angelito Dangelo DO at 19:31 EDT , Service support , Assessment and Plan 36-year-old female admitted with altered mental status and found to be severely anemic with a hemoglobin of 5 g per DL with a low MCV, iron studies consistent with severe iron deficiency anemia. No evidence for B12 deficiency and patient is status post gastric bypass over 10 years ago and is on chronic PPI therapy. From the hematology consult view patient has chronic iron deficiency anemia due to: 1. chronic external blood loss in menses and/or GI. 2. Limited GI absorption of oral iron due to gastric bypass status and chronic PPI therapy. Recommendations: 1 continue long-term oral iron supplement 1 tablet daily. 2. Supplement oral iron with IV iron will prescribe loading dose of then a fever 300 mg weekly ?4 then maintenance as guided by blood work. Will order to the first dose of IV iron for today subsequent doses can be administered in the outpatient office and patient was given contact info to schedule a follow-up. 3. GI evaluation was EGD to rule out any active bleeding and treat. Medications: Prescriptions This Visit Medication Instructions Recorded Cyclobenzaprine [Flexeril] 10 mg PO QHS PRN 08/31/17 Ibuprofen [Ibu] 800 mg PO Q6H PRN PRN 08/31/17 Dextroamphetamine/Amphetamine 20 mg PO TID 09/01/17 [Adderall 20 mg Tablet] Oxycodone HCl/Acetaminophen 1 tab PO Q6H PRN 09/01/17 [Percocet 7.5-325 mg Tablet] Medications Added to Medication List This Visit Category Date Time Status Ensure Clear Med 09/01/17 10:00 Active 120 ml PO 4X/DAY Ferrous Sulfate Med 09/01/17 17:00 Active 325 mg PO BIDCM Nicotine [Nicoderm Cq (PBKC)] Med 09/01/17 10:00 Active 14 mg TRANSDERM. DAILY Remove Patch Med 09/01/17 22:00 Active 1 patch TOPICAL DAILY@2200 Primary Care Provider: Vance Cardona Referring Provider:
[2017-09-01] MEDS: 0.9% NaCl Peripheral Flush Adult/Peds IV ×3 (10:57→22:35)
--- NOTE | 2017-09-01 11:05 | CON.PCM_ITS ---
- Problem List (1) Iron (Fe) deficiency anemia Status: Chronic (2) S/P gastric bypass Status: Chronic Consult Referring Physician: Hospitalist service Consult Results: Severe chronic iron deficiency anemia Subjective Date of Service:: 09/01/17 Chief Complaint: Anemia History of Present Illness: Patient is a 36-year-old female admitted with an altered mental status and found to be severely anemic with a hemoglobin of 5 g per DL. Her past medical history is notable for status post gastric bypass surgery for obesity over 10 years earlier, chronic GERD on PPI therapy. Patient has been on oral iron in the past. She is premenopausal and unaware of any GI or urinary blood loss. Past Medical History: Chronic Problems S/P gastric bypass (Chronic) Iron (Fe) deficiency anemia (Chronic) GERD (gastroesophageal reflux disease) (Chronic) Chronic pain syndrome (Chronic) Anxiety (Chronic) Tobacco use (Chronic) Polysubstance abuse (Chronic) Past Medical/Surgical History: Past Medical History - Most Recent Inpatient Visit Past Medical History Start: 08/31/17 22: 07 Text: Status: Complete Freq: ONCE Protocol: Document 08/31/17 22:28 [facility] (Rec: 08/31/17 22:33 [facility] [id number]) BMI Required to complete PMH What is Patient's BMI 30.3 Past Medical History Unable History Recalled Yes Query Text:Pt Unable/Family Not Present Neurologic Medical History Hx Stroke/TIA No Hx Dementia/Alzheimer's No Hx Parkinson's Disease No Hx Seizures No Hx Multiple Sclerosis No Hx Migraines No Cardiac Medical History VTE Present on Admission No Hx of Deep Vein Thrombosis/VTE/PE No Hx Hypertension No Hx Chest Pain/Angina No Hx Heart Attack No Hx Cardiac Surgery/Stents/Etc. No Hx Heart Failure No Hx Pacemaker/AICD No Hx Irregular Heartbeat and/or Afib No Hx Anticoagulant Therapy No Query Text:(Coumadin, Aspirin, Plavix, Xarelto, etc.) Hx Pain in Legs when Walking/Leg Cramps No Respiratory Medical History Hx COPD No Hx Emphysema No Hx Smoking Yes Smoking Status Current every day smoker Tobacco Use Cigarettes Hx Smoking Cessation Counseling No Hx Smoking Exposure No Hx Tobacco Use in last 12 months Yes Sent to [facility] Yes Hx Sleep Apnea No Do you snore loudly (louder than talking No or can be heard through closed doors)? Do you often feel tired/ fatigued/ No sleepy during daytime? Has anyone observed you stop breathing No during sleep? STOP Results Negative GI Medical History Hx Ulcer Yes Hx Hepatitis No Hx Cirrhosis No Hx GI Bleed No Hx Unplanned Weight Loss No Genitourinary Medical History Indwelling Catheter in Place on Arrival/ No Admission Hx Renal Disease No Hx Dialysis No Musculoskeletal History Hx Arthritis Yes Hx Rheumatoid Arthritis No Endocrine Medical History Hx Diabetes No Hx Thyroid Disease No Hematologic Medical History Hx of Blood Transfusion No Hx of Transfusion in last 3 Months No Ever experience any problems with No transfusion(s)? Hx of Preganancy in last 3 Months No Nurse Filling Out Transfusion & OHALE Questions: Date: 08/31/17 Time: 22:32 Psycho/Social Medical History Hx Depression No Hx Anxiety Yes Hx Behavior Disorder No Hx Alcohol Use Yes: SOCIALLY Hx Substance Use No Other Medical History Hx Blood Disorders No Hx Anemia No Hx Cancer No Hx Drug Resistant Organism No Wound/Pressure Injury Present on Arrival No /Admission Query Text:If yes, chart assessment in Shift/Clinical Findings Central Line/PICC/VAD Present on Arrival No /Admission Antibiotics within last 7 days? No Methicillin Resistant Staphylococcus aureus Screening Active MRSA No Risk for Readmission Number of Risk Factors 4 At Risk for Readmission Patient is At Risk For Readmission Patient is eligible for Call Back Y Maternal Family History: Heart Disease, Hypertension Paternal Family History: Heart Disease, Hypertension - Social History Lives: With Family - She notes she lives at home with her 15-year-old and 12- year-old child. She does have a 21-year-old child who is currently sitting her children. Smoking Status: Current every day smoker Tobacco Use: Cigarettes Alcohol: Occasional - She notes intermittent alcohol intake, approximately every 1-2 weeks socially. Drugs: None Allergies/Adverse Reactions: Allergy/AdvReac Type Severity Reaction Status Date / Time Penicillins Allergy Anaphylaxis Verified 08/31/17 17:28 venlafaxine HCl AdvReac Other Verified 08/31/17 17:28 [From Effexor] Review of Systems Constitutional:: Reports: Weakness, Fatigue. Denies: Fever, Sweats, Weight loss , Appetite change, Chills Cardiovascular:: Reports: Dyspnea on exertion Respiratory: Reports: Shortness of breath upon exertion. Denies: Cough, Hemoptysis, Shortness of Breath, Wheezing Gastrointestinal:: Reports: Reflux. Denies: Abdominal pain, Nausea, Vomiting, Diarrhea, Constipation, Hematochezia Genitourinary: Reports: - - Did not appreciate that her periods were particularly heavy or excessive. Denies: Dysuria, Hematuria, Flank pain Musculoskeletal:: Reports: - - Has chronic pain issues on narcotics Skin: Reports: Rash - On face and neck that she attributes to picking Neurological:: Reports: - - Admitted with an altered mental status. Denies: Headache, Dizziness, Visual changes, Tinnitus, Hearing loss Vital Signs Height 5 ft 1.5 in Weight: 73.9 kg Weight in Pounds 162.9 lbs Pulse Ox 95 Temperature 99.1 F Pulse Rate 81 Respiratory Rate 16 Blood Pressure 157/114 Blood Pressure Position Sitting - Physical Exam General: Alert, Oriented x3, No apparent distress, - - Unkempt HEENT: Atraumatic, PERRLA, EOMI, Normocephalic, - - Pale Oropharynx:: Dry mucosa Neck:: Supple, Trachea midline. Negative for: JVD, bilateral Cardiac:: Regular rate, Regular rhythm, Normal S1, Normal S2. Negative for: Murmur Lungs: Clear to auscultation, Excusion symmetrical. Negative for: Rhonchi, Wheezes Abdomen:: Soft, Non-tender, Non-distended. Negative for: Hepatosplenomegaly Extremities:: Negative for: Cyanosis, Edema Neurological: Neuro grossly intact Skin:: Rash - Papular rash over the chin and neck. Negative for: Lesions, Petechiae, Ecchymosis Psychiatric:: Appropriate affect, Euthymic Lymphatics:: Negative for: Cervical lymphadenopathy, Supraclavicular lymphadenopathy Laboratory Data: Laboratory Tests 3 09/01/17 09/01/17 09/01/17 Range/Units 09:55 04:38 04:38 Hgb 8.4 L 6.8 L (12.0-15.0) g/dl Hct 29.8 L 25.0 L (37-47) % Sodium 142 (136-145) mmol/L Potassium 4.1 (3.5-5.1) mmol/L Chloride 109 H (98-107) mmol/L Carbon Dioxide 24.0 (21.0-32.0) mmol/L Anion Gap 9 (5-15) BUN 5 L (7-18) mg/dL Creatinine 0.40 L (0.55-1.02) mg/dL Estim Creat Clear Calc 143.90 ml/min Est GFR (MDRD) Af Amer 229 (>60) mL/min Est GFR (MDRD) Non-Af 189 (>60) mL/min BUN/Creatinine Ratio 12.5 (10-20) RATIO Glucose 78 (74-106) mg/dL Calcium 7.6 L (8.5-10.1) mg/dL Magnesium (1.6-2.6) mg/dL Iron (50-170) ug/dL TIBC (250-450) ug/dL Iron Saturation (15.0-55.0) % Ferritin (8-252) ng/mL Vitamin B12 (211-911) pg/mL Folate (3.1-55.4) ng/mL 3 08/31/17 08/31/17 08/31/17 Range/Units 23:04 23:04 20:20 Hgb 6.1 L (12.0-15.0) g/dl Hct 22.8 L (37-47) % Sodium (136-145) mmol/L Potassium (3.5-5.1) mmol/L Chloride (98-107) mmol/L Carbon Dioxide (21.0-32.0) mmol/L Anion Gap (5-15) BUN (7-18) mg/dL Creatinine (0.55-1.02) mg/dL Estim Creat Clear Calc ml/min Est GFR (MDRD) Af Amer (>60) mL/min Est GFR (MDRD) Non-Af (>60) mL/min BUN/Creatinine Ratio (10-20) RATIO Glucose (74-106) mg/dL Calcium (8.5-10.1) mg/dL Magnesium 2.0 (1.6-2.6) mg/dL Iron 17 L (50-170) ug/dL TIBC 463 H (250-450) ug/dL Iron Saturation 3.7 L (15.0-55.0) % Ferritin 2 L (8-252) ng/mL Vitamin B12 (211-911) pg/mL Folate 15.00 (3.1-55.4) ng/mL 3 08/31/17 Range/Units 20:20 Hgb (12.0-15.0) g/dl Hct (37-47) % Sodium (136-145) mmol/L Potassium (3.5-5.1) mmol/L Chloride (98-107) mmol/L Carbon Dioxide (21.0-32.0) mmol/L Anion Gap (5-15) BUN (7-18) mg/dL Creatinine (0.55-1.02) mg/dL Estim Creat Clear Calc ml/min Est GFR (MDRD) Af Amer (>60) mL/min Est GFR (MDRD) Non-Af (>60) mL/min BUN/Creatinine Ratio (10-20) RATIO Glucose (74-106) mg/dL Calcium (8.5-10.1) mg/dL Magnesium (1.6-2.6) mg/dL Iron (50-170) ug/dL TIBC (250-450) ug/dL Iron Saturation (15.0-55.0) % Ferritin (8-252) ng/mL Vitamin B12 467 (211-911) pg/mL Folate (3.1-55.4) ng/mL Diagnostic Data: Diagnostic Data Brain CT 08/31/17 18:12 IMPRESSION: Normal unenhanced CT scan of the brain. No acute intracranial process. Electronically Signed: Angelito Dangelo DO at 19:31 EDT , Service support , Assessment and Plan 36-year-old female admitted with altered mental status and found to be severely anemic with a hemoglobin of 5 g per DL with a low MCV, iron studies consistent with severe iron deficiency anemia. No evidence for B12 deficiency and patient is status post gastric bypass over 10 years ago and is on chronic PPI therapy. From the hematology consult view patient has chronic iron deficiency anemia due to: 1. chronic external blood loss in menses and/or GI. 2. Limited GI absorption of oral iron due to gastric bypass status and chronic PPI therapy. Recommendations: 1 continue long-term oral iron supplement 1 tablet daily. 2. Supplement oral iron with IV iron will prescribe loading dose of then a fever 300 mg weekly ?4 then maintenance as guided by blood work. Will order to the first dose of IV iron for today subsequent doses can be administered in the outpatient office and patient was given contact info to schedule a follow-up. 3. GI evaluation was EGD to rule out any active bleeding and treat. Medications: Prescriptions This Visit Medication Instructions Recorded Cyclobenzaprine [Flexeril] 10 mg PO QHS PRN 08/31/17 Ibuprofen [Ibu] 800 mg PO Q6H PRN PRN 08/31/17 Dextroamphetamine/Amphetamine 20 mg PO TID 09/01/17 [Adderall 20 mg Tablet] Oxycodone HCl/Acetaminophen 1 tab PO Q6H PRN 09/01/17 [Percocet 7.5-325 mg Tablet] Medications Added to Medication List This Visit Category Date Time Status Ensure Clear Med 09/01/17 10:00 Active 120 ml PO 4X/DAY Ferrous Sulfate Med 09/01/17 17:00 Active 325 mg PO BIDCM Nicotine [Nicoderm Cq (PBKC)] Med 09/01/17 10:00 Active 14 mg TRANSDERM. DAILY Remove Patch Med 09/01/17 22:00 Active 1 patch TOPICAL DAILY@2200 Primary Care Provider: Vance Cardona Referring Provider:
--- NOTE | 2017-09-01 11:51 | NURSING ---
Called report to Cheyenne QUINTANILLA in [place]
--- NOTE | 2017-09-01 11:55 | CM.ED ---
CM INITIAL ASSESSMENT: Home: Patient lives with her three children. Patient confirms that she has made arrangements for children while she is in the hospital. HHS/Aides: Denies. DME: Denies. Home Oxygen: Denies. Pharmacy: [facility] Advance Directives: Denies. Declines assistance at this time. PCP: Vance Cardona Specialists: John. Transportation: Patient states she does drive. DC Plan: Home. CM will continue to follow for safe and effective discharge planning.
--- NOTE | 2017-09-01 12:30 | PCM.PROGNOTE ---
Patient Problems: Active and Suspected Problems Anemia (Acute) Subjective: Pt resting comfortably in bed, NAD, blood currently running, denying changes including rash, fever, chill, shakes since starting blood. No SOB, cough. This week she has had intermittent dizziness, LH, fatigue, confusion. It is somewhat improved this AM. She denies hx of GI bleed. She has had gastric bypass in the past. She denies black, tarry, of bloody stools. No abdominal pain. She denies recent vomiting episodes. She is on oxycodone and adderall at home and her prescriptions were confirmed with [facility] and her pharmacy. - Physical Exam General: Alert, Oriented x3, Cooperative HEENT: Atraumatic, PERRLA, EOMI, Normocephalic Neck: Supple, No JVD, Negative Carotid Bruits Lungs: Clear to auscultation, Normal air movement Cardiovascular: Regular rate, No murmurs Abdomen: Bowel Sounds Present, Soft, Non Tender Extremities: No edema, Capillary Refill Less than 3 Seconds Skin: No rashes, No breakdown Musculoskeletal: No Tenderness to Palpation of Joints or Extremities Neurological: Cranial nerves II-XII grossly intact Psych/Mental Status: Normal Affect, Appropriate Vital Signs Temp Pulse Resp BP Pulse Ox 98.6 F 77 16 149/89 H 98 09/01/17 11:05 09/01/17 11:12 09/01/17 11:05 09/01/17 11:05 09/01/17 11:05 Oxygen Delivery Method Room Air Weight: 73.9 kg Body Mass Index (BMI) 30.2 Intake and Output for Last 24 Hours 08/30/17 08/31/17 09/01/17 23:59 23:59 23:59 Intake Total 812 / 812 1334 / 1334 Balance 812 / 812 1334 / 1334 Laboratory Tests Past 24 Hrs 08/31/17 08/31/17 08/31/17 20:20 20:20 23:04 Hgb Hct Sodium Potassium Chloride Carbon Dioxide Anion Gap BUN Creatinine Estim Creat Clear Calc Est GFR (MDRD) Af Amer Est GFR (MDRD) Non-Af BUN/Creatinine Ratio Glucose Calcium Magnesium 2.0 Iron 17 L TIBC 463 H Iron Saturation 3.7 L Ferritin 2 L Vitamin B12 467 Folate 15.00 08/31/17 09/01/17 09/01/17 23:04 04:38 04:38 Hgb 6.1 L 6.8 L Hct 22.8 L 25.0 L Sodium 142 Potassium 4.1 Chloride 109 H Carbon Dioxide 24.0 Anion Gap 9 BUN 5 L Creatinine 0.40 L Estim Creat Clear Calc 143.90 Est GFR (MDRD) Af Amer 229 Est GFR (MDRD) Non-Af 189 BUN/Creatinine Ratio 12.5 Glucose 78 Calcium 7.6 L Magnesium Iron TIBC Iron Saturation Ferritin Vitamin B12 Folate 09/01/17 09:55 Hgb 8.4 L Hct 29.8 L Sodium Potassium Chloride Carbon Dioxide Anion Gap BUN Creatinine Estim Creat Clear Calc Est GFR (MDRD) Af Amer Est GFR (MDRD) Non-Af BUN/Creatinine Ratio Glucose Calcium Magnesium Iron TIBC Iron Saturation Ferritin Vitamin B12 Folate Medical Necessity - Tobacco Use Smoking Status: Current every day smoker Tobacco Use: Cigarettes Assessment/Plan All Active Problems Anemia (Acute) 1. Chronic blood loss anemia suspected 2/2 chronic GI bleed and iron deficiency likely 2/2 bleed and malabsorption 2/2 prior gastric bypass -patient presented with fatigue and confusion, which are both improved. hx GERD, on PPI, on high doses ibuprofen for chronic back pain. DCd, advised no further NSAID use. Pt Hgb improved s/p 2 units PRBC, and per oncology will start once daily iron as well as Venofer now and as an outpatient, likely will need monthly Venofer. Dr. Sarmiento has been consulted for general surgery after the patient kicked out Dr. Berger this am after becoming angry - see his note. Dr. Sarmiento will take the patient to endoscopy this afternoon. -Iron studies very deficient. Low MCV. Folate/B12 normal. -CT brain neg. 2. Chronic back pain-discontinue NSAIDs, continue Oxy as per home dose. Flexeril held. 3. Obesity -status post gastric bypass surgery. Consult the dietitian. 4. ADHD-on home Adderall 5. Hypertension-patient was very agitated this morning, will trend and adjust medications if needed. 6. Nicotine abuse - patch, cessation particularly important with hx GERD and possible GI bleeding. 7. GERD - previously on PPI, continue, may need higher dose pending findings of EGD. 8. Anxiety - prn ativan DVT ppx: SCDs DC planning: anticipate no home going needs. This patient was seen by Gus Purcell PA-C under the supervision of Doctor Hua.
--- NOTE | 2017-09-01 14:15 | GASB_PTH ---
PATIENT: SANAZ MORRIS LOC: [facility] U#:[id number] AGE/SX: 36/F ROOM: [facility] RE08/31/[address]: Dr. Brittani Hua DO : 1980 BED: 1 DIS: 09/02/2017 SPEC #: [id number] RECD: 09/01/17 15:11 STATUS: HELEN RODRIGUEZ #: [id number] LUBNA: 09/01/17 14:[address]: Freddy Sarmiento DEPT: SURGICAL PATHOLOGY RECD BY: Freddy Tenorio ENTERED: 09/02/17 14:07 SP TYPE: Gastric Bx OTHR DR: MD Dr. Brittani Caldwell DO Dr. Mansour Isckarus, MD Dr. Richard Guttman, MD Dr. Robert Lindsay, DO Tissues: Gastric mucous membrane Procedures: Surgery Specimen Level IV Comments: @ Ordering doctor for SUIV edited from to DR.RGUTTM Marcial by ROBIN at 09/02/17 1455 @ Submitting doctor edited from to DR.RGUTTM Marcial by HALEYOD at 09/02/17 1455 HEADER OPERATION: EGD PRE-OP DIAGNOSIS: GI bleed, anemia TISSUE SUBMITTED: Gastric pouch biopsy MICROSCOPIC DIAGNOSIS Gastric pouch, biopsy: Mild chronic gastritis. AM:carmen 09/09/17 COMMENT The results of immunohistochemistry for Helicobacter pylori will be reported separately ([id number]). MICROSCOPIC DESCRIPTION Slides are reviewed. GROSS DESCRIPTION Received in fixative is one container labeled with the patient's name and designated gastric biopsy. The specimen consists of one irregular fragment of light tijerina soft tissue that measures 0.6 x 0.2 x 0.1 cm. The specimen is totally submitted in one cassette. / AM:carmen 09/02/17 TC:5 CPT: 29184
--- NOTE | 2017-09-01 14:17 | PCM.OPRPT ---
Report of Operation Date of Procedure: 09/01/17 Pre-Operative Diagnosis: GI bleed Post-Operative Diagnosis: marginal ulceration Surgery/Procedure Performed:: EGD with Biopsy flight operation coordinator: None Type of Anesthesia:: MAC Anesthesiologist: German Shanks - ASA3 Specimen's removed: gastric pouch Description of Procedure: The patient was brought to the endoscopy suite. Sign in was performed verifying patient, site, planned procedure, critical nursing information, the patient was monitored with cardiac, pulse oximetric, and blood pressure monitoring devices. Monitored anesthetic care was provided for sedation. Following IV sedation and after the oropharynx was sprayed with Cetacaine spray, a video gastroscope was inserted in the oropharynx and advanced down the esophagus without difficulty. The scope was advanced through the stomach, through the gastric pouch to the jejunal limb. The jejunum is normal at the extent the scope was advanced. as the scope was withdrawn. Just distal to the gastrojejunostomy. There is a marginal ulceration which bled somewhat as the scope was advanced past. The gastric pouch appears normal with mild irritation. A biopsy is obtained to send pathology. The GE junction had mild irritation but overall was relatively unremarkable. The remainder of the esophagus was unremarkable. The patient tolerated the procedure well and was brought to recovery in stable condition. I plan to start Carafate.
[2017-09-01 14:27] LABS: Pathologist Review Reviewed
[2017-09-01] MEDS: LORazepam 1 MG Tablet PO ×2 (14:56→22:10)
[2017-09-01] MEDS: Sucralfate 1 GM Tablet PO ×2 (16:15→22:03)
[2017-09-01 17:47] LABS: Hematocrit 31.3 % (37-47); Hemoglobin 9.2 g/dl (12.0-15.0)
--- NOTE | 2017-09-01 18:18 | PCM.CONS.GEN ---
Reason for Consult Date of Consultation: 09/01/17 History of Present Illness: The patient is a 36 year old F with a complaint of dizziness and confusion who presented to [facility] emergency department and was found to have significant anemia. the patient was seen and was formerly [facility] emergency Department. She had a CT scan of her head which demonstrated no specific abnormalities. Hemoglobin is noted to be 5. She was admitted and transfused. I was contacted for endoscopy for probable GI source. The patient has a history of gastric bypass surgery 10 years previously performed in [place] at [facility]. She has a long-standing history of orthopedic complaints and takes significant quantities of Motrin regularly. She has a history of anxiety and ADHD for which she is on Adderall. She denies recent substance use. She does not check color stools, so she does not note any melanoma or other difficulties. She denies upper abdominal pain. She does note fatigue and lethargy. I was contacted for presumed GI bleeding. Per Dr. Beasley's admission note The patient is a 36 y/o F w/ PMHx: Fe Deficiency Anemia, GERD, Chronic Pain Syndrome, Anxiety/ADHD, Tobacco use, Polysubstance abuse who presents to the [facility] ED on 08/31/17 with 4-5 day history of confusion, fatigue, lethargy intermittently, noted have to been pulled over per the police while driving in [facility] over the weekend but kept insisting to the officer that she was in [place]. She denies any history of black or bright red blood per rectum. She does note history of gastric bypass ~10 years prior and has not been taking the vitamins she was recommended. In the ED work-up included T 97.9, HR 93, BP 118/57, RR 16, 99% on RA, CBC w/ WBC 4.9, Hgb 5.2, MCV 69.8, Plt 171 without marked shift, BMP w/ K 3.4, Chl 108, glucose 113, negative , UA not marked appearing, CT head without acute findings, UDS w/ opiates, amphetamine, MDMA-methampetamine, EtOH negative. Past Medical History Past Medical History (Chronic Problems): Chronic Problems S/P gastric bypass (Chronic) Iron (Fe) deficiency anemia (Chronic) GERD (gastroesophageal reflux disease) (Chronic) Chronic pain syndrome (Chronic) Anxiety (Chronic) Tobacco use (Chronic) Polysubstance abuse (Chronic) Allergies Penicillins Allergy (Verified 08/31/17 17:28) Anaphylaxis venlafaxine HCl [From Effexor] Adverse Reaction (Verified 08/31/17 17:28) Other Home Medications: Ambulatory Orders Medication Instructions Recorded Omeprazole [Prilosec] 40 mg PO DAILY 12/27/15 Lorazepam [Ativan] 1 mg PO TID PRN 01/13/16 Cyclobenzaprine [Flexeril] 10 mg PO QHS PRN 08/31/17 Ibuprofen [Ibu] 800 mg PO Q6H PRN PRN 08/31/17 Dextroamphetamine/Amphetamine 20 mg PO TID 09/01/17 [Adderall 20 mg Tablet] Oxycodone HCl/Acetaminophen 1 tab PO Q6H PRN 09/01/17 [Percocet 7.5-325 mg Tablet] Surgical History: - - Tonsillectomy, bilateral tubal ligation, gastric bypass. Psychiatric History: Anxiety, Attn. 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 She does have a 21-year-old child who is currently sitting her children. Smoking Status: Current every day smoker Tobacco Use: Cigarettes Alcohol: Occasional - She notes intermittent alcohol intake, approximately every 1-2 weeks socially. Drugs: None - *Family History Maternal History Items: Heart Disease, Hypertension Paternal History Items: Heart Disease, Hypertension Review of Systems Constitutional: Reports: Malaise, Fatigue. Denies: Chills, Fever, Weight Change HEENT: Denies: Head Aches, Sinus Congestion, Sinus Drainage Cardiovascular: Denies: Chest Pain, Palpitations Respiratory: Denies: Cough, Shortness of breath at rest, Sputum production Gastrointestinal: Denies: Abdominal Pain, Nausea, Vomiting Genitourinary: Denies: Dysuria Musculoskeletal: Denies: Joint Pain, Joint Tenderness Skin: Denies: Rash, Wounds Neurological: Denies: Numbness, Tingling, Focal weakness Psychiatric: Denies: Anxiety, Depression, Homicidal Ideations, Suicidal Ideations Hematologic/ Lymphatic: Denies: Easy Bruising, Easy Bleeding Patient Problems: Active and Suspected Problems Anemia (Acute) - Physical Exam General: Alert, Oriented x3, Cooperative HEENT: - - superficial skin ulcerations on her face Lungs: Normal air movement, Rhonchi Cardiovascular: Regular rate, Regular Rhythm Abdomen: Bowel Sounds Present, Soft, Non Tender Vital Signs Temp Pulse Resp BP Pulse Ox 98.4 F 72 16 148/90 H 98 09/01/17 15:00 09/01/17 15:07 09/01/17 15:00 09/01/17 15:00 09/01/17 15:00 Oxygen Delivery Method Room Air Weight: 73.9 kg Body Mass Index (BMI) 30.2 Intake and Output for Last 24 Hours 08/30/17 08/31/17 09/01/17 23:59 23:59 23:59 Intake Total 812 / 812 2498 / 2498 Balance 812 / 812 2498 / 2498 Laboratory Tests Past 24 Hrs 08/31/17 08/31/17 08/31/17 20:20 20:20 23:04 Hgb Hct Sodium Potassium Chloride Carbon Dioxide Anion Gap BUN Creatinine Estim Creat Clear Calc Est GFR (MDRD) Af Amer Est GFR (MDRD) Non-Af BUN/Creatinine Ratio Glucose Calcium Magnesium 2.0 Iron 17 L TIBC 463 H Iron Saturation 3.7 L Ferritin 2 L Vitamin B12 467 Folate 15.00 08/31/17 09/01/17 09/01/17 23:04 04:38 04:38 Hgb 6.1 L 6.8 L Hct 22.8 L 25.0 L Sodium 142 Potassium 4.1 Chloride 109 H Carbon Dioxide 24.0 Anion Gap 9 BUN 5 L Creatinine 0.40 L Estim Creat Clear Calc 143.90 Est GFR (MDRD) Af Amer 229 Est GFR (MDRD) Non-Af 189 BUN/Creatinine Ratio 12.5 Glucose 78 Calcium 7.6 L Magnesium Iron TIBC Iron Saturation Ferritin Vitamin B12 Folate 09/01/17 09/01/17 09:55 17:20 Hgb 8.4 L 9.2 L Hct 29.8 L 31.3 L Sodium Potassium Chloride Carbon Dioxide Anion Gap BUN Creatinine Estim Creat Clear Calc Est GFR (MDRD) Af Amer Est GFR (MDRD) Non-Af BUN/Creatinine Ratio Glucose Calcium Magnesium Iron TIBC Iron Saturation Ferritin Vitamin B12 Folate Assessment/Plan All Active Problems Anemia (Acute) significant anemia-previous gastric bypass surgery, NSAID use, I plan to perform upper endoscopy. The patient understands the risks, benefits, complications, and possible alternatives and consents to the procedure. Most likely finding would be a marginal ulceration of her previous gastric bypass surgery. If this is negative, I would recommend bleeding scan versus colonoscopy. Discussed with the patient her positive finding her toxicology report. Denies other substance use. Other prescription medications. I'm unsure if Adderall would have both amphetamine and methamphetamine positivity. Plan for monitored anesthetic care for sedation. In any event, given her chronic narcotic use. Anesthesia aware of potential interactions for sedation.
--- NOTE | 2017-09-01 18:27 | CON.PCM_ITS ---
Reason for Consult Date of Consultation: 09/01/17 History of Present Illness: The patient is a 36 year old F with a complaint of dizziness and confusion who presented to [facility] emergency department and was found to have significant anemia. the patient was seen and was [facility] emergency Department. She had a CT scan of her head which demonstrated no specific abnormalities. Hemoglobin is noted to be 5. She was admitted and transfused. I was contacted for endoscopy for probable GI source. The patient has a history of gastric bypass surgery 10 years previously performed in [place] at [facility]. She has a long-standing history of orthopedic complaints and takes significant quantities of Motrin regularly. She has a history of anxiety and ADHD for which she is on Adderall. She denies recent substance use. She does not check color stools, so she does not note any melanoma or other difficulties. She denies upper abdominal pain. She does note fatigue and lethargy. I was contacted for presumed GI bleeding. Per Dr. Beasley's admission note The patient is a 36 y/o F w/ PMHx: Fe Deficiency Anemia, GERD, Chronic Pain Syndrome, Anxiety/ADHD, Tobacco use, Polysubstance abuse who presents to the [facility] ED on 08/31/17 with 4-5 day history of confusion, fatigue, lethargy intermittently, noted have to been pulled over per the police while driving in [facility] over the weekend but kept insisting to the officer that she was in [place]. She denies any history of black or bright red blood per rectum. She does note history of gastric bypass ~10 years prior and has not been taking the vitamins she was recommended. In the ED work-up included T 97.9, HR 93, BP 118/ 57, RR 16, 99% on RA, CBC w/ WBC 4.9, Hgb 5.2, MCV 69.8, Plt 171 without marked shift, BMP w/ K 3.4, Chl 108, glucose 113, negative , UA not marked appearing, CT head without acute findings, UDS w/ opiates, amphetamine, MDMA- methampetamine, EtOH negative. Past Medical History Past Medical History (Chronic Problems): Chronic Problems S/P gastric bypass (Chronic) Iron (Fe) deficiency anemia (Chronic) GERD (gastroesophageal reflux disease) (Chronic) Chronic pain syndrome (Chronic) Anxiety (Chronic) Tobacco use (Chronic) Polysubstance abuse (Chronic) Allergies Penicillins Allergy (Verified 08/31/17 17:28) Anaphylaxis venlafaxine HCl [From Effexor] Adverse Reaction (Verified 08/31/17 17:28) Other Home Medications: Ambulatory Orders Medication Instructions Recorded Omeprazole [Prilosec] 40 mg PO DAILY 12/27/15 Lorazepam [Ativan] 1 mg PO TID PRN 01/13/16 Cyclobenzaprine [Flexeril] 10 mg PO QHS PRN 08/31/17 Ibuprofen [Ibu] 800 mg PO Q6H PRN PRN 08/31/17 Dextroamphetamine/Amphetamine 20 mg PO TID 09/01/17 [Adderall 20 mg Tablet] Oxycodone HCl/Acetaminophen 1 tab PO Q6H PRN 09/01/17 [Percocet 7.5-325 mg Tablet] Surgical History: - - Tonsillectomy, bilateral tubal ligation, gastric bypass. Psychiatric History: Anxiety, Attn. 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 She does have a 21-year-old child who is currently sitting her children. Smoking Status: Current every day smoker Tobacco Use: Cigarettes Alcohol: Occasional - She notes intermittent alcohol intake, approximately every 1-2 weeks socially. Drugs: None - *Family History Maternal History Items: Heart Disease, Hypertension Paternal History Items: Heart Disease, Hypertension Review of Systems Constitutional: Reports: Malaise, Fatigue. Denies: Chills, Fever, Weight Change HEENT: Denies: Head Aches, Sinus Congestion, Sinus Drainage Cardiovascular: Denies: Chest Pain, Palpitations Respiratory: Denies: Cough, Shortness of breath at rest, Sputum production Gastrointestinal: Denies: Abdominal Pain, Nausea, Vomiting Genitourinary: Denies: Dysuria Musculoskeletal: Denies: Joint Pain, Joint Tenderness Skin: Denies: Rash, Wounds Neurological: Denies: Numbness, Tingling, Focal weakness Psychiatric: Denies: Anxiety, Depression, Homicidal Ideations, Suicidal Ideations Hematologic/ Lymphatic: Denies: Easy Bruising, Easy Bleeding Patient Problems: Active and Suspected Problems Anemia (Acute) - Physical Exam General: Alert, Oriented x3, Cooperative HEENT: - - superficial skin ulcerations on her face Lungs: Normal air movement, Rhonchi Cardiovascular: Regular rate, Regular Rhythm Abdomen: Bowel Sounds Present, Soft, Non Tender Vital Signs Temp Pulse Resp BP Pulse Ox 98.4 F 72 16 148/90 H 98 09/01/17 15:00 09/01/17 15:07 09/01/17 15:00 09/01/17 15:00 09/01/17 15:00 Oxygen Delivery Method Room Air Weight: 73.9 kg Body Mass Index (BMI) 30.2 Intake and Output for Last 24 Hours 08/30/17 08/31/17 09/01/17 23:59 23:59 23:59 Intake Total 812 / 812 2498 / 2498 Balance 812 / 812 2498 / 2498 Laboratory Tests Past 24 Hrs 08/31/17 08/31/17 08/31/17 20:20 20:20 23:04 Hgb Hct Sodium Potassium Chloride Carbon Dioxide Anion Gap BUN Creatinine Estim Creat Clear Calc Est GFR (MDRD) Af Amer Est GFR (MDRD) Non-Af BUN/Creatinine Ratio Glucose Calcium Magnesium 2.0 Iron 17 L TIBC 463 H Iron Saturation 3.7 L Ferritin 2 L Vitamin B12 467 Folate 15.00 08/31/17 09/01/17 09/01/17 23:04 04:38 04:38 Hgb 6.1 L 6.8 L Hct 22.8 L 25.0 L Sodium 142 Potassium 4.1 Chloride 109 H Carbon Dioxide 24.0 Anion Gap 9 BUN 5 L Creatinine 0.40 L Estim Creat Clear Calc 143.90 Est GFR (MDRD) Af Amer 229 Est GFR (MDRD) Non-Af 189 BUN/Creatinine Ratio 12.5 Glucose 78 Calcium 7.6 L Magnesium Iron TIBC Iron Saturation Ferritin Vitamin B12 Folate 09/01/17 09/01/17 09:55 17:20 Hgb 8.4 L 9.2 L Hct 29.8 L 31.3 L Sodium Potassium Chloride Carbon Dioxide Anion Gap BUN Creatinine Estim Creat Clear Calc Est GFR (MDRD) Af Amer Est GFR (MDRD) Non-Af BUN/Creatinine Ratio Glucose Calcium Magnesium Iron TIBC Iron Saturation Ferritin Vitamin B12 Folate Assessment/Plan All Active Problems Anemia (Acute) significant anemia-previous gastric bypass surgery, NSAID use, I plan to perform upper endoscopy. The patient understands the risks, benefits , complications, and possible alternatives and consents to the procedure. Most likely finding would be a marginal ulceration of her previous gastric bypass surgery. If this is negative, I would recommend bleeding scan versus colonoscopy. Discussed with the patient her positive finding her toxicology report. Denies other substance use. Other prescription medications. I'm unsure if Adderall would have both amphetamine and methamphetamine positivity. Plan for monitored anesthetic care for sedation. In any event, given her chronic narcotic use. Anesthesia aware of potential interactions for sedation.
[2017-09-02 03:10] VITALS: BP 146/82; PULSE 73; RESP 18; TEMP 37.9; O2SAT 94
[2017-09-02 04:06] VITALS: PULSE 71
[2017-09-02] MEDS: Sucralfate 1 GM Tablet PO (06:07)
[2017-09-02] MEDS: LORazepam 1 MG Tablet PO (06:07)
[2017-09-02 07:03] LABS: Hematocrit 33.2 % (37-47); Hemoglobin 9.7 g/dl (12.0-15.0)
[2017-09-02 07:19] VITALS: PULSE 74
[2017-09-02 07:55] VITALS: O2SAT 96
[2017-09-02 08:45] VITALS: BP 140/69; PULSE 77; RESP 16; TEMP 36.9; O2SAT 97
[2017-09-02] MEDS: Ferrous Sulfate 325 MG Tablet PO (08:49)
[2017-09-02] MEDS: oxyCODONE 5 MG Tablet PO (08:53)
[2017-09-02] MEDS: 0.9% NaCl Peripheral Flush Adult/Peds IV (08:55)
--- NOTE | 2017-09-02 11:41 | PCM.DC ---
- Discharge Diagnoses Current Active Problems: Current Active and Chronic Problems S/P gastric bypass (Chronic) Iron (Fe) deficiency anemia (Chronic) GERD (gastroesophageal reflux disease) (Chronic) Chronic pain syndrome (Chronic) Anxiety (Chronic) Tobacco use (Chronic) Polysubstance abuse (Chronic) Anemia (Acute) You will use the following diet at home:: No restrictions Your food should be the consistency of: Regular Your liquids should be the consistency of: Regular/Thin Discharge Activity: Return to Normal Activity Additional Instructions: discontinue smoking, no NSAIDs like ibuprofen/motrin/alleve/naproxen Allergies/Adverse Reactions: Allergies Penicillins Allergy (Verified 08/31/17 17:28) Anaphylaxis venlafaxine HCl [From Effexor] Adverse Reaction (Verified 08/31/17 17:28) Other Medications to take at Discharge Omeprazole [Prilosec] 40 mg PO DAILY 12/27/15 Lorazepam [Ativan] 1 mg PO TID PRN 01/13/16 Cyclobenzaprine [Flexeril] 10 mg PO QHS PRN 08/31/17 Dextroamphetamine/Amphetamine [Adderall 20 mg Tablet] 20 mg PO TID 09/01/17 Oxycodone HCl/Acetaminophen [Percocet 7.5-325 mg Tablet] 1 tab PO Q6H PRN 09/01/17 Ferrous Sulfate 325 mg PO DAILY@0800 #30 tab 09/02/17 Sucralfate [Carafate] 1 gm PO 1HR_ACHS #120 tab 09/02/17 The following prescriptions were given: Ferrous Sulfate 325 mg PO DAILY@0800 #30 tab Sucralfate [Carafate] 1 gm PO 1HR_ACHS #120 tab Primary Care Physician: Vance Cardona DO [Primary Care Provider] - Please follow up with your Primary Care Physician in: 2 weeks Please Follow Up With: Amanda Paiz MD When: 3-4 weeks Please Follow Up With: Freddy Sarmiento MD When: 2-4 weeks Proposed Discharge Date: 09/02/17
[2017-09-02 11:43] VITALS: BP 137/78; PULSE 84; RESP 18; TEMP 36.7; O2SAT 96
--- NOTE | 2017-09-02 11:43 | PCM.DC.SUM ---
Discharge Date and Diagnosis - Problem List Patient Problems: Active and Suspected Problems Anemia (Acute) Date of Admission: 08/31/17 Date of Discharge: 09/02/17 - Primary Discharge Diagnosis Active and Suspected Problems Chronic iron deficiency and blood loss anemia 2/2 bleeding ulcer (distal to the gastrojejunostomy) Possibly 2/2 NSAID use Nicotine abuse GERD Chronic back pain Obesity s/p gastric bypass ADHD HTN Anxiety - Secondary Discharge Diagnosis Chronic Problems S/P gastric bypass (Chronic) Iron (Fe) deficiency anemia (Chronic) GERD (gastroesophageal reflux disease) (Chronic) Chronic pain syndrome (Chronic) Anxiety (Chronic) Tobacco use (Chronic) Polysubstance abuse (Chronic) Hospital Course and Treatment Imaging Results: CT/Brain/Head without Contrast IMPRESSION: Normal unenhanced CT scan of the brain. No acute intracranial process. Consults: Hem/Onc - Chencho Mcclellan Surgery - Guillermina Operations: None Procedures: Blood transfusion, EGD Summary of Care Provided: Physical exam on day of discharge: General: Resting comfortably NAD Psych: A/Ox3 normal affect HEENT: PEARRLA AT NC Neck: Supple NT CV: RRR no m/t/r/g/h Resp: CTA Abd: [id number] Soft NT no guarding or rigidity Ext: DP2+= no edema Skin: W/D normal turgor Lymph/Heme: No active bleeding or adenopathy Neuro: CN2-12 intact Hospital course: The patient is a 36 year old F who presented to the ER with increased confusion and fatigue, she has a hx of GERD, chronic back pain for which she is on NSAIDS, Nicotine abuse, obesity with prior gastrifc bypass, ADHD, and anxiety. She was found to have a hgb of 5.2 and was transfused with PRBC. She was placed on IV protonix. She was admitted to the PCU and hem/onc and general surgery were consulted. Iron studies demonstrated significant iron deficiency, with normal folate and b12. Hem/onc ordered IV venofer and suggested starting once daily iron with the understanding that she would likely still need outpatient IV iron as she probably does not absorb it well with her prior gastric bypass. She was taken by Dr. Sarmiento for an EGD which demonstrated a bleeding ulcer distal to the gastrojejunostomy. She was started on carafate. Her blood counts continued to gradually improve without further transfusion. She was discharged home in stable condition. We strongly advised discontinuing NSAIDs, and tobacco products. She will need to follow up with her PCP, hem/onc, and general surgery. This patient was seen by Gus Purcell PA-C under the supervision of Doctor Melita. [] Discharge Diet: No Restrictions Discharge Activity: Return to Normal Activity Home Medications: Medications to take at Discharge Omeprazole [Prilosec] 40 mg PO DAILY 12/27/15 Lorazepam [Ativan] 1 mg PO TID PRN 01/13/16 Cyclobenzaprine [Flexeril] 10 mg PO QHS PRN 08/31/17 Dextroamphetamine/Amphetamine [Adderall 20 mg Tablet] 20 mg PO TID 09/01/17 Oxycodone HCl/Acetaminophen [Percocet 7.5-325 mg Tablet] 1 tab PO Q6H PRN 09/01/17 Ferrous Sulfate 325 mg PO DAILY@0800 #30 tab 09/02/17 Sucralfate [Carafate] 1 gm PO 1HR_ACHS #120 tab 09/02/17 Following Prescrptions Were Given to Patient: Ferrous Sulfate 325 mg PO DAILY@0800 #30 tab Sucralfate [Carafate] 1 gm PO 1HR_ACHS #120 tab Primary Care Physician: Vance Cardona DO [Primary Care Provider] - Please follow up with your Primary Care Physician in: 2 weeks Please Follow Up With: Amanda Paiz MD When: 3-4 weeks Please Follow Up With: Freddy Sarmiento MD When: 2-4 weeks Disposition: Home Minutes spent on discharge:: 35 Patient Condition:: Stable Medical Necessity - Tobacco Use Smoking Status: Current every day smoker Tobacco Use: Cigarettes Meaningful Use Info Meaningful Use Diagnoses (Choose all that apply): None applicable
--- NOTE | 2017-09-02 11:54 | DS.PCM_ITS ---
Discharge Date and Diagnosis - Problem List Patient Problems: Active and Suspected Problems Anemia (Acute) Date of Admission: 08/31/17 Date of Discharge: 09/02/17 - Primary Discharge Diagnosis Active and Suspected Problems Chronic iron deficiency and blood loss anemia 2/2 bleeding ulcer (distal to the gastrojejunostomy) Possibly 2/2 NSAID use Nicotine abuse GERD Chronic back pain Obesity s/p gastric bypass ADHD HTN Anxiety - Secondary Discharge Diagnosis Chronic Problems S/P gastric bypass (Chronic) Iron (Fe) deficiency anemia (Chronic) GERD (gastroesophageal reflux disease) (Chronic) Chronic pain syndrome (Chronic) Anxiety (Chronic) Tobacco use (Chronic) Polysubstance abuse (Chronic) Hospital Course and Treatment Imaging Results: CT/Brain/Head without Contrast IMPRESSION: Normal unenhanced CT scan of the brain. No acute intracranial process. Consults: Hem/Onc - Chencho Mcclellan Surgery - Guillermina Operations: None Procedures: Blood transfusion, EGD Summary of Care Provided: Physical exam on day of discharge: General: Resting comfortably NAD Psych: A/Ox3 normal affect HEENT: PEARRLA AT NC Neck: Supple NT CV: RRR no m/t/r/g/h Resp: CTA Abd: [id number] Soft NT no guarding or rigidity Ext: DP2+= no edema Skin: W/D normal turgor Lymph/Heme: No active bleeding or adenopathy Neuro: CN2-12 intact Hospital course: The patient is a 36 year old F who presented to the ER with increased confusion and fatigue, she has a hx of GERD, chronic back pain for which she is on NSAIDS , Nicotine abuse, obesity with prior gastrifc bypass, ADHD, and anxiety. She was found to have a hgb of 5.2 and was transfused with PRBC. She was placed on IV protonix. She was admitted to the PCU and hem/onc and general surgery were consulted. Iron studies demonstrated significant iron deficiency, with normal folate and b12. Hem/onc ordered IV venofer and suggested starting once daily iron with the understanding that she would likely still need outpatient IV iron as she probably does not absorb it well with her prior gastric bypass. She was taken by Dr. Sarmiento for an EGD which demonstrated a bleeding ulcer distal to the gastrojejunostomy. She was started on carafate. Her blood counts continued to gradually improve without further transfusion. She was discharged home in stable condition. We strongly advised discontinuing NSAIDs, and tobacco products. She will need to follow up with her PCP, hem/onc, and general surgery. This patient was seen by Gus Pucrell PA-C under the supervision of Doctor Melita. [] Discharge Diet: No Restrictions Discharge Activity: Return to Normal Activity Home Medications: Medications to take at Discharge Omeprazole [Prilosec] 40 mg PO DAILY 12/27/15 Lorazepam [Ativan] 1 mg PO TID PRN 01/13/16 Cyclobenzaprine [Flexeril] 10 mg PO QHS PRN 08/31/17 Dextroamphetamine/Amphetamine [Adderall 20 mg Tablet] 20 mg PO TID 09/01/17 Oxycodone HCl/Acetaminophen [Percocet 7.5-325 mg Tablet] 1 tab PO Q6H PRN Ferrous Sulfate 325 mg PO DAILY@0800 #30 tab 09/02/17 Sucralfate [Carafate] 1 gm PO 1HR_ACHS #120 tab 09/02/17 Following Prescrptions Were Given to Patient: Ferrous Sulfate 325 mg PO DAILY@0800 #30 tab Sucralfate [Carafate] 1 gm PO 1HR_ACHS #120 tab Primary Care Physician: Vance Cardona DO [Primary Care Provider] - Please follow up with your Primary Care Physician in: 2 weeks Please Follow Up With: Amanda Paiz MD When: 3-4 weeks Please Follow Up With: Freddy Sarmiento MD When: 2-4 weeks Disposition: Home Minutes spent on discharge:: 35 Patient Condition:: Stable Medical Necessity - Tobacco Use Smoking Status: Current every day smoker Tobacco Use: Cigarettes Meaningful Use Info Meaningful Use Diagnoses (Choose all that apply): None applicable
--- NOTE | 2017-09-02 19:15 | PCM.PN.SRG ---
Subjective: some epigastric pain. Overall, doing better - Physical Exam General: Alert, Oriented x3, Cooperative Lungs: Clear to auscultation, Normal air movement Cardiovascular: Regular rate, No murmurs Abdomen: Bowel Sounds Present, Soft, Non Tender Vital Signs Temp Pulse Resp BP Pulse Ox 98.1 F 84 18 137/78 H 96 09/02/17 11:43 09/02/17 11:43 09/02/17 11:43 09/02/17 11:43 09/02/17 11:43 Oxygen Delivery Method Room Air Weight: 73.9 kg Body Mass Index (BMI) 30.2 Intake and Output for Last 24 Hours 08/31/17 09/01/17 09/02/17 23:59 23:59 23:59 Intake Total 812 / 812 2764 / 2764 Balance 812 / 812 2764 / 2764 Laboratory Tests Past 24 Hrs 09/02/17 06:15 Hgb 9.7 L Hct 33.2 L Medical Necessity - Tobacco Use Smoking Status: Current every day smoker Tobacco Use: Cigarettes Assessment/Plan All Active Problems Anemia (Acute) significant anemia-previous gastric bypass surgery, NSAID use,marginal ulceration at gastrojejunal anastomosis I recommend the patient be discharged on Carafate 4 times a day-slurry. The patient's follow-up my office next week. We'll review biopsy pathology results and assure that she is doing better clinically on Carafate.
== END 2017-09-02 12:27 | disposition home or self-care (01) | DRG 174 ==
LOC: ED 20:20 → PCU 20:25
PROVIDERS: Physician Assistant; Surgery; Admitting Provider Family Medicine; Emergency Provider Emergency Medicine; Family Provider Preventive Medicine Occupational Medicine; PCP Preventive Medicine Occupational Medicine; Visit Provider Internal Medicine
PROC: 0DJ08ZZ Inspection of Upper Intestinal Tract, Via Natural or Artificial Opening Endoscopic (ICD-10-PCS; CPT 43235; principal; 2017-09-01 12:45)
DX: K28.4 Chronic or unspecified gastrojejunal ulcer with hemorrhage (principal); D50.0 Iron deficiency anemia secondary to blood loss (chronic); F17.220 Nicotine dependence, chewing tobacco, uncomplicated; E87.6 Hypokalemia; G89.4 Chronic pain syndrome; K21.9 Gastro-esophageal reflux disease without esophagitis; M54.9 Dorsalgia, unspecified; E66.9 Obesity, unspecified; Z98.84 Bariatric surgery status; F90.9 Attention-deficit hyperactivity disorder, unspecified type; I10 Essential (primary) hypertension; F41.9 Anxiety disorder, unspecified; Z68.30 Body mass index [BMI] 30.0-30.9, adult; T39.315A Adverse effect of propionic acid derivatives, initial encounter
CPT/HCPCS: 36415; 70450; 80048; 80307; 80320; 81001; 82607; 82728; 82746; 83540; 83550; 83735; 84703; 85014; 85018; 85025; 86644; 86850; 86900; 86920; 88305; 88342; 99284; 99406; J1756; J7030; J7040; P9016; A4216; G0480

== ENCOUNTER 2018-02-01 21:13 | Emergency (ER) | payer MEDICAID, SELFPAY ==
[2018-02-01 21:17] VITALS: BP 155/111; PULSE 100; PULSE 95; RESP 14; RESP 18; TEMP 36.6; O2SAT 97; O2SAT 98; BMI 28.6
[2018-02-01 22:12] LABS: Absolute Lymphocyte Count 2.09 X10^3/ul (0.83-4.51); Absolute Neutrophil Count 3.4 X10^3/uL (2.0-7.7); Basophil# 0.02 X10^3/uL; Basophil% 0.3 % (0-1); Eosinophil# 0.26 X10^3/uL; Eosinophils% 4.2 % (0-5); Hematocrit 42.3 % (37-47); Hemoglobin 14.1 g/dl (12.0-15.0); Lymphocyte # 2.09 X10^3/ul (4.0); Lymphocyte % 33.5 % (19-41); Mean Corp Hgb Conc 33.3 g/gl (32-36); Mean Corpuscular Volume 95.9 fL (81-99); Mean Platelet Vol. 11.5 fl (6.2-12.0); Monocyte# 0.49 X10^3/uL; Monocyte% 7.9 % (0-10); Neutrophil # 3.36 X10^3/uL (2.7-7.7); Neutrophil % 53.9 % (47-70); Platelet Count 268 K/mm3 (150-450); RBC Distribution Width SD 44.8 fl (35.1-43.9); Red Blood Count 4.41 M/mm3 (4.2-5.4); White Blood Count 6.2 K/mm3 (4.4-11.0)
[2018-02-01 22:15] LABS: POSITIVE COUNT NO; POSITIVE DIFFERENTIAL NO; POSITIVE MORPHOLOGY NO
--- NOTE | 2018-02-01 22:18 | EKG12_ITS ---
Test Reason : INTERMIT CP Blood Pressure : / mmHG Vent. Rate : 085 BPM Atrial Rate : 085 BPM P-R Int : 132 ms QRS Dur : 088 ms QT Int : 400 ms P-R-T Axes : 054 043 054 degrees QTc Int : 476 ms Normal sinus rhythm Normal ECG Confirmed by PHILOMENA STILES, LAWRENCE ([id number]), newspaper or periodical editor DAKOTA FREEMAN ([id number]) on 02/08/2018 2:26:15 PM Referred By: DR KURTZ Confirmed By:LAWRENCE QUACH MD
[2018-02-01 22:28] LABS: ALB/GLOB Ratio 1.1 RATIO (0.9-2.4); AST(SGOT) 26 U/L (15-37); Alanine Aminotransfer ALT/SGPT 18 U/L (13-56); Albumin, Serum 3.2 g/dL (3.2-5.0); Alkaline Phosphatase 67 U/L (45-117); Anion Gap 6 (5-15); BUN 9 mg/dL (7-18); BUN/Creat Ratio 16.7 RATIO (10-20); Chloride 107 mmol/L (98-107); Creatinine, Serum 0.54 mg/dL (0.55-1.02); EST Glomerular Filtration Rate 134 mL/min (>60); Est Glom Filt Rate - Afr Amer 162 mL/min (>60); Estimated Creatinine Clearance 120.78 ml/min; Glucose 94 mg/dL (74-106); International Normalized Ratio 0.9; Potassium 4.4 mmol/L (3.5-5.1); Pregnancy, Serum, hCG Quali. NEGATIVE Negative (0-9 Nonpreg); Protein, Total 6.2 g/dL (6.4-8.2); Prothrombin Time (Protime)PT. 12.2 SECONDS (11.7-14.9); Sodium Level 140 mmol/L (136-145)
[2018-02-01 22:29] LABS: Partial Thromboplast Time 21.6 Seconds (24.1-36.2)
[2018-02-01 22:37] LABS: Bacteria 0 SEEN /hpf (None Seen); Mucous, Urine 0 SEEN /hpf (<or=2+); Red Blood Cells-Urine 0 SEEN /hpf (0-5); White Blood Cells 0 SEEN /hpf (0-5)
[2018-02-01 22:41] LABS: Color, Urine Yellow (Yellow); Glucose, Dipstick Normal (Normal); Ketone-Dipstick Negative (Negative); Leukocyte Esterase-Dipstick Negative /ul (Negative); Nitrite-Dipstick Negative (Negative); Occult Blood-Urine Negative /ul (Negative); Protein-Dipstick Negative (Negative); Urine Bilirubin Dipstick Negative (Negative); Urine Clarity Clear (Clear); Urine Urobilinogen 1 mg/dl (Normal)
[2018-02-01 22:47] LABS: Squamous Epithelial Cells - UA 0-5 SEEN /hpf (5-10)
--- NOTE | 2018-02-01 23:06 | ED.VISSUMM ---
- ER Visit Summary Date of Service: 02/01/18 Chief Complaint: Low on blood History of Present Illness: The patient is a 37 F who is concerned she is low on blood. She felt this way when she had a GI bleed and was anemic and required transfusion. Patient says she is tired and has some fatigue, mild chest pain, back pain, and headaches. She noted some blood in her stool. She has a history of a GI bleed from a gastric ulcer. He is not on blood thinners. She is not having abdominal pain, vomiting, or diarrhea. Physical Examination: Afebrile and vital signs unremarkable. She is alert and oriented. No acute distress. Sitting comfortably. Heart regular rate and rhythm. Lungs clear. Abdomen soft and nontender. Chaperoned rectal exam was unremarkable. No gross blood. Skin appears normal without pallor. Test Results: EKG showed sinus rhythm at a rate of 85. No sign of acute ischemia or infarction pattern. Troponin normal. CBC, coags, CMP, and test negative. Hemoccult testing negative. Emergency Department Course and Treatment: I was concerned for GI bleed given her history. Her exam and workup was unremarkable. She has noted some blood in her stool, but at this point, there is no indication for further diagnostic testing or admission regarding GI bleeding. I am not sure what is causing her generalized symptoms. She may be coming down with a virus. There is no indication for any further testing, hospitalization, or observation. I believe she is appropriate for outpatient follow-up at this point. She should return for any new or worsening issues, otherwise follow-up with her doctor. Treatment Plan: As above Disposition: Discharge Impression: 1. Generalized weakness This note was generated with [employer] dictation software. It may contain incorrect words, spelling, and punctuation that were not noted in review of the chart prior to signing ED Disposition - Plan for ED Patient: Chief Complaint: GI Bleed Referrals: Vance Cardona DO [Primary Care Provider] -
--- NOTE | 2018-02-01 23:10 | ED.DEP ---
ED Disposition - Plan for ED Patient: Chief Complaint: GI Bleed Instructions: ED PUD Referrals: Vance Cardona DO [Primary Care Provider] -
[2018-02-01 23:20] VITALS: BP 154/60; PULSE 80; RESP 16; O2SAT 98
== END 2018-02-01 23:20 | disposition home or self-care (01) ==
LOC: ED 21:46
PROVIDERS: Emergency Provider Emergency Medicine; Family Provider Preventive Medicine Occupational Medicine; PCP Preventive Medicine Occupational Medicine
DX: R53.1 Weakness (principal); F90.9 Attention-deficit hyperactivity disorder, unspecified type; Z87.19 Personal history of other diseases of the digestive system; Z79.899 Other long term (current) drug therapy; Z72.0 Tobacco use
CPT/HCPCS: 80053; 81001; 82274; 84484; 84703; 85025; 85610; 85730; 86850; 86900; 93005; 96365; 99283; J3490

== ENCOUNTER 2019-04-05 21:08 | Emergency (ER) | payer MEDICAID, SELFPAY ==
[2019-04-05 21:09] VITALS: BP 159/97; PULSE 103; RESP 18; TEMP 36.3; O2SAT 99; BMI 34.1
--- NOTE | 2019-04-05 21:50 | RAD_ITS ---
STUDY: X-RAY - LEFT FOOT CLINICAL: Female, 38 years old. Fall down stairs, lateral foot pain TECHNIQUE: 3 view(s) of the foot. COMPARISON: None. FINDINGS: There is a small plantar calcaneal spur. Normal visualized subtalar, talonavicular, calcaneocuboid, tarsal and tarsometatarsal articulations. Normal metatarsi. There is degenerative arthrosis of the metatarsophalangeal joint of the hallux with a hallux valgus deformity. Normal tibial and fibular sesamoid bones. Normal interphalangeal joint of the great toe. Normal phalanges of the great toe. Normal second through fifth metatarsophalangeal joints. Normal interphalangeal joints and phalanges of the lesser toes. The soft tissue structures are unremarkable. There is no demonstrated fracture. RAD/Foot min 3 Views IMPRESSION: No definite acute fracture or dislocation. Electronically Signed: Anders Buckley MD at 22:02 EST , Service support ,
--- NOTE | 2019-04-05 23:04 | ED.DCSUM_ITS ---
- ER Visit Summary Date of Service: 04/05/19 Chief Complaint: Left foot pain History of Present Illness: The patient is a 38 F who presents with left foot pain that began after a fall today. Patient states she slipped on the step and twisted her left foot. Patient states her pain is worse with ambulation. Patient denies any paresthesias or weakness. Patient denies any head injury or loss of consciousness. Patient denies any other injuries. Physical Examination: Vital signs are stable. Patient is afebrile. Patient is in no acute distress. Musculoskeletal exam reveals tenderness over the fifth metatarsal of the left foot. There is no edema or ecchymosis. There is no def ormity noted. Range of motion was limited in all motions of the left foot secondary to pain. Sensation was intact to light touch in all digits. Pedal pulses are equal bilaterally. Test Results: X-rays of the left foot were obtained. There is no acute fracture. This was interpreted by the radiologist and myself. Emergency Department Course and Treatment: Patient was instructed to ice and elevate the left foot. Patient was instructed to take Tylenol or ibuprofen as needed for pain. Patient understood and was agreeable with the plan. All questions were answered. Disposition: Discharge home Impression: Left foot sprain This note was generated with [employer] dictation software. It may contain incorrect words, spelling, and punctuation that were not noted in review of the chart prior to signing ED Disposition - Plan for ED Patient: Disposition: Home or Assisted Living Diagnosis: Sprain of left foot Instructions: Sprain Foot Referrals: Vance Cardona DO [Primary Care Provider] - 5-7 Days
[2019-04-05 23:21] VITALS: RESP 16
== END 2019-04-05 23:21 | disposition home or self-care (01) ==
PROVIDERS: Emergency Provider Emergency Medicine; Family Provider Preventive Medicine Occupational Medicine; PCP Preventive Medicine Occupational Medicine
DX: S93.602A Unspecified sprain of left foot, initial encounter (principal); W10.9XXA Fall (on) (from) unspecified stairs and steps, initial encounter; X50.1XXA Overexertion from prolonged static or awkward postures, initial encounter; Y93.9 Activity, unspecified; Z72.0 Tobacco use
CPT/HCPCS: 73630; 99282

== ENCOUNTER 2019-05-02 11:15 | Emergency (ER) | payer MEDICAID, SELFPAY ==
[2019-05-02 11:16] VITALS: BP 185/110; PULSE 101; RESP 17; TEMP 36.9; O2SAT 100; BMI 34.3
--- NOTE | 2019-05-02 11:29 | ED.VISSUMM ---
- ER Visit Summary Date of Service: 05/02/19 Chief Complaint: Abdominal pain History of Present Illness: The patient is a 38 F who presents with abdominal pain that is been constant for the past 2 weeks. Patient states the pain is diffuse but worse in her right lower abdomen. Patient describes the pain as cramping but sharp at times. Patient states nothing makes her pain better or worse. Patient admits to some nausea and vomiting. Patient denies any hematemesis or coffee-ground emesis. Patient denies any diarrhea, melena, or hematochezia. Patient denies any dysuria or hematuria. Patient states her last menstrual period was 03/18/2019. Physical Examination: Vital signs are stable except for an elevated blood pressure of 185/110. Patient is afebrile. Patient is in no acute distress. Oral mucosa is pink and moist. Neck is supple. Trachea is midline. There is no JVD. Heart was regular rate and rhythm. Lungs are clear and equal bilaterally. Abdomen is soft. There is mild diffuse tenderness. There is no rebound or guarding noted. Cranial nerves II through XII are intact. There are no focal motor or sensory deficits. Test Results: [] Emergency Department Course and Treatment: [] Disposition: [] Impression: [] This note was generated with [employer] dictation software. It may contain incorrect words, spelling, and punctuation that were not noted in review of the chart prior to signing ED Disposition - Plan for ED Patient: Disposition: Home or Assisted Living Diagnosis: Abdominal pain, Ovarian cyst Instructions: Ovarian Cyst Prescriptions: Naproxen [Naprosyn] 500 mg PO BID PRN #20 tab Prescription Printed Referrals: Vance Cardona DO [Primary Care Provider] - 5-7 Days
--- NOTE | 2019-05-02 11:30 | CT_ITS ---
STUDY: CT ABDOMEN AND PELVIS WITH CONTRAST REASON FOR EXAM: Female, 38 years old. Abdomen and back pain x 2 weeks, nausea/vomiting. Prior gastric bypass. RADIATION DOSAGE (If Supplied By Facility): CTDIvol = ( 15.03 ) mGy, DLP = ( 1018.94 ) mGycm TECHNIQUE: Transaxial images were obtained from the dome of the diaphragm to the symphysis pubis with oral contrast. Oral and amp; IV Gastrografin and amp; 100mL Isovue-300 was administered. Sagittal and coronal images were reconstructed. Individualized dose optimization techniques were used for this CT. COMPARISON: None. FINDINGS: The visualized lung bases are unremarkable. The visualized portions of the heart are within normal limits. Normal liver. Normal gallbladder and extrahepatic biliary system. Normal spleen. Normal pancreas. Normal bilateral adrenal glands. Normal right kidney. Normal left kidney. There is evidence of prior subtotal gastrectomy in keeping with the gastric bypass surgery. Normal small intestine. Normal colon. The appendix is visualized and appears normal. There is scattered atherosclerotic calcification of the abdominal aorta, without a demonstrated aneurysm. Normal inferior vena cava. Normal retroperitoneum. Normal urinary bladder. There is a 2.9 cm x 3.8 cm complex cyst in the left ovary. Follicles are seen in the right ovary. Correlation with pelvic ultrasound is recommended. Normal abdominal wall. Normal osseous structures. CT/Abdomen/Pelvis WITH Contrast IMPRESSION: Status post gastric bypass surgery. 2.9 cm x 3.8 cm complex left ovarian cyst. Correlation with ultrasound is recommended. Electronically Signed: Aldo oJnes, at 13:39 EST , Service support ,
[2019-05-02 11:49] LABS: Mucous, Urine 0 SEEN /hpf (<or=2+); Red Blood Cells-Urine 0 SEEN /hpf (0-5)
[2019-05-02 11:55] LABS: Color, Urine Yellow (Yellow); Glucose, Dipstick Normal (Normal); Ketone-Dipstick 5 mg/dl (Negative); Leukocyte Esterase-Dipstick 25 /ul (Negative); Nitrite-Dipstick Negative (Negative); Occult Blood-Urine Negative /ul (Negative); Protein-Dipstick 30 mg/dl (Negative); Specific Gravity, Urine 1.025 (1.002-1.030); Urine Clarity Sl. Cloudy (Clear); Urine Urobilinogen Normal (Normal)
[2019-05-02 11:58] LABS: Urine Bilirubin Dipstick 1 mg/dL (Negative)
[2019-05-02 12:00] LABS: Bacteria RARE /hpf (None Seen); Squamous Epithelial Cells - UA 5-10 SEEN /hpf (5-10); White Blood Cells 0-5 SEEN /hpf (0-5)
[2019-05-02] MEDS: 0.9% Normal Saline 1,000 ML 1000 ML IV (12:01)
[2019-05-02] MEDS: Ondansetron 4 MG/2 ML Vial IV (12:07)
[2019-05-02 12:09] LABS: Absolute Lymphocyte Count 1.45 X10^3/uL (0.83-4.51); Absolute Neutrophil Count 5.5 X10^3/uL (2.0-7.7); Basophil# 0.03 X10^3/uL; Basophil% 0.4 % (0-1); Eosinophil# 0.21 X10^3/uL; Eosinophils% 2.7 % (0-5); Hematocrit 40.4 % (37-47); Hemoglobin 12.4 g/dL (12.0-15.0); Lymphocyte # 1.45 X10^3/ul (4.0); Lymphocyte % 18.9 % (19-41); Mean Corp Hgb Conc 30.7 g/dL (32-36); Mean Corpuscular Hgb 24.8 pg (27.0-32.0); Mean Corpuscular Volume 80.8 fL (81-99); Mean Platelet Vol. 11.4 fl (6.2-12.0); Monocyte# 0.51 X10^3/uL; Monocyte% 6.7 % (0-10); NRBC Flagged by Analyzer 0 % (0-5); Neutrophil # 5.45 X10^3/uL (2.7-7.7); Neutrophil % 71.2 % (47-70); Platelet Count 252 K/mm3 (150-450); RBC Distribution Width CV 16.2 % (11.6-14.6); RBC Distribution Width SD 47.6 fl (35.1-43.9); White Blood Count 7.7 K/mm3 (4.4-11.0)
[2019-05-02 12:27] LABS: Internal QC Validated? YES +Cl - CLEAR BKGD; Pregnancy, Serum, hCG Quali. NEGATIVE Negative
[2019-05-02 12:32] LABS: ALB/GLOB Ratio 1.4 RATIO (0.9-2.4); AST(SGOT) 13 U/L (15-37); Alanine Aminotransfer ALT/SGPT 19 U/L (13-56); Albumin, Serum 4.4 g/dL (3.2-5.0); Alkaline Phosphatase 73 U/L (45-117); Anion Gap 5 (5-15); BUN 14 mg/dL (7-18); BUN/Creat Ratio 19.1 RATIO (10-20); Calcium,Total 9.2 mg/dL (8.5-10.1); Chloride 107 mmol/L (98-107); Creatinine, Serum 0.73 mg/dL (0.55-1.02); EST Glomerular Filtration Rate 93 mL/min (>60); Est Glom Filt Rate - Afr Amer 113 mL/min (>60); Estimated Creatinine Clearance 88.46 ml/min; Globulin 3.2 g/dL (2.2-4.2); Glucose 90 mg/dL (74-106); Lipase 90 U/L (73-393); Potassium 3.6 mmol/L (3.5-5.1); Protein, Total 7.6 g/dL (6.4-8.2); Sodium Level 138 mmol/L (136-145)
[2019-05-02 13:38] VITALS: PULSE 69; O2SAT 100
[2019-05-02 14:43] VITALS: RESP 16
== END 2019-05-02 14:44 | disposition home or self-care (01) ==
PROVIDERS: Emergency Provider Emergency Medicine; PCP Preventive Medicine Occupational Medicine
DX: R10.9 Unspecified abdominal pain (principal); N83.202 Unspecified ovarian cyst, left side; Z98.84 Bariatric surgery status; Z72.0 Tobacco use
CPT/HCPCS: 74177; 80053; 81001; 83690; 84703; 85025; 96361; 96374; 99284; Q9967; J2405

== ENCOUNTER 2020-12-06 15:21 | Emergency (ER) | payer MEDICAID, SELFPAY ==
[2020-12-06 15:22] VITALS: BP 190/123; PULSE 93; RESP 20; TEMP 36.8; O2SAT 100; BMI 37.3
[2020-12-06 15:23] VITALS: BP 190/123; PULSE 93; RESP 20; TEMP 36.8; O2SAT 100
[2020-12-06 15:35] VITALS: BP 190/123; PULSE 93; RESP 20; TEMP 36.8; O2SAT 100
--- NOTE | 2020-12-06 15:52 | CT_ITS ---
STUDY: CT ABDOMEN AND PELVIS WITH CONTRAST REASON FOR EXAM: Female, 40 years old. Right lower quadrant pain RADIATION DOSAGE (If Supplied By Facility): CTDIvol = ( 19.68 ) mGy, DLP = ( 1258.87 ) mGycm TECHNIQUE: CT images were obtained from the dome of the diaphragm to the symphysis pubis without oral contrast. IV 100mL Isovue-370 was administered. Sagittal and coronal images were reconstructed. Individualized dose optimization techniques were used for this CT. COMPARISON: None. FINDINGS: The visualized lung bases are unremarkable. The visualized portions of the heart are within normal limits. Normal liver. Normal gallbladder and extrahepatic biliary system. Normal spleen. Normal pancreas. Normal bilateral adrenal glands. Normal right kidney. Normal left kidney. There is no intestinal obstruction. There is gastric bypass with adjacent dilated loop of bowel with surgical suture line. This can represent patulous anastomosis due to [id number] surgical technique and is not clearly pathologic. Normal abdominal aorta. Normal inferior vena cava. Normal retroperitoneum. Normal urinary bladder. Uterus and adnexa are not clearly seen due to limitations of CT technique. There are questionable hypodense peripherally enhancing lesions in the fundus of the uterus versus related to endometrial cavity. There is questionable inflammation surrounding the upper vagina and cervix. Normal abdominal wall. Normal osseous structures. CT/Abdomen/Pelvis W IV Cont ONLY IMPRESSION: 1. Questionable findings in the female reproductive tract, suboptimally evaluated. Possibly uterine/endometrial abnormality and/or pelvic inflammation. Refer to definitive imaging, neck imaging study is pelvic ultrasound. 2. Gastric bypass and patulous loop of bowel in the left flank, a finding of unclear significance. Electronically Signed: Shreya Saldaña MD at 17:33 EDT Tel , Service support ,
[2020-12-06 16:01] LABS: Absolute Lymphocyte Count 2.56 X10^3/uL (0.83-4.51); Absolute Neutrophil Count 3.2 X10^3/uL (2.0-7.7); Basophil# 0.02 X10^3/uL; Basophil% 0.3 % (0-1); Eosinophil# 0.13 X10^3/uL; Hematocrit 37.7 % (37-47); Hemoglobin 11.7 g/dL (12.0-15.0); Lymphocyte # 2.56 X10^3/ul (0.83-4.51); Lymphocyte % 39.1 % (19-41); Mean Corpuscular Volume 80.6 fL (81-99); Mean Platelet Vol. 11.1 fl (6.2-12.0); Monocyte# 0.59 X10^3/uL; NRBC Flagged by Analyzer 0 % (0-5); Neutrophil # 3.23 X10^3/uL (2.7-7.7); Neutrophil % 49.3 % (47-70); Platelet Count 226 K/mm3 (150-450); RBC Distribution Width CV 16.9 % (11.6-14.6); RBC Distribution Width SD 48.8 fl (35.1-43.9); Red Blood Count 4.68 M/mm3 (4.2-5.4); White Blood Count 6.6 K/mm3 (4.4-11.0)
[2020-12-06] MEDS: Ondansetron 4 MG/2 ML Vial IV (16:06)
[2020-12-06] MEDS: Morphine 4 MG/ML Syringe IV (16:06)
[2020-12-06] MEDS: 0.9% Normal Saline 1,000 ML 1000 ML IV (16:07)
[2020-12-06 16:14] LABS: AST(SGOT) 12 U/L (15-37); Alanine Aminotransfer ALT/SGPT 18 U/L (13-56); Albumin, Serum 3.6 g/dL (3.2-5.0); Alkaline Phosphatase 74 U/L (45-117); Anion Gap 4 (5-15); BUN 14 mg/dL (7-18); BUN/Creat Ratio 22.3 RATIO (10-20); Bilirubin, Direct 0.16 mg/dL (0.00-0.30); Calcium,Total 8.6 mg/dL (8.5-10.1); Chloride 106 mmol/L (98-107); Creatinine, Serum 0.63 mg/dL (0.55-1.02); EST Glomerular Filtration Rate 111 mL/min (>60); Est Glom Filt Rate - Afr Amer 134 mL/min (>60); Estimated Creatinine Clearance 100.45 ml/min; Globulin 3.7 g/dL (2.2-4.2); Glucose 88 mg/dL (74-106); Lipase 65 U/L (73-393); Potassium 3.4 mmol/L (3.5-5.1); Protein, Total 7.3 g/dL (6.4-8.2); Sodium Level 139 mmol/L (136-145)
[2020-12-06 16:50] LABS: Internal QC Validated? YES +Cl - CLEAR BKGD; Pregnancy, Serum, hCG Quali. NEGATIVE Negative
[2020-12-06 17:55] LABS: Red Blood Cells-Urine 0 SEEN /hpf (0-5); White Blood Cells 0 SEEN /hpf (0-5)
[2020-12-06 17:59] LABS: Color, Urine Yellow (Yellow); Glucose, Dipstick Normal (Normal); Ketone-Dipstick Negative (Negative); Leukocyte Esterase-Dipstick Negative /ul (Negative); Nitrite-Dipstick Negative (Negative); Occult Blood-Urine Negative /ul (Negative); Protein-Dipstick 15 mg/dl (Negative); Urine Bilirubin Dipstick Negative (Negative); Urine Clarity Sl. Cloudy (Clear); Urine Urobilinogen Normal (Normal)
[2020-12-06 18:06] LABS: Bacteria RARE /hpf (None Seen); Hyaline Cast 0-5 SEEN /lpf (0-5); Mucous, Urine 1+ /hpf (<or=2+); Squamous Epithelial Cells - UA 0-5 SEEN /hpf (5-10)
[2020-12-06 19:42] VITALS: BP 188/99; PULSE 72; RESP 18; O2SAT 100
--- NOTE | 2020-12-06 20:09 | EDS_ITS ---
HPI History of Present Illness Chief Complaint: Abd Pain Narrative Narrative: Patient states she has had pain in her lower abdomen for the past 3 to 4 days. She denies any vomiting associated with this but states she has mild nausea. She denies any recent trauma fevers or chills vaginal bleeding discharge or any type of dysuria. She states that the symptoms have been persistent she was concerned that this could be possible appendix as her pain is more located in the right lower quadrant and therefore comes in for evaluation PFSH PFS Medical History RIGHT ANKLE SURGERY X3 Home Medications ibuprofen 800 mg PO BID 04/05/19 [History Last Taken Unknown] naproxen 500 mg PO BID PRN #20 tab 05/02/19 [Rx Last Taken Unknown] lamotrigine 25 mg PO DAILY 12/06/20 [History Last Taken Unknown] ondansetron HCl [Zofran] 4 mg PO Q8H PRN #21 tab 12/06/20 [Rx Last Taken Unknown] oxycodone-acetaminophen [Percocet] 1 tab PO Q6H PRN 3 Days #12 tab 12/06/20 [Rx Last Taken Unknown] Allergy/AdvReac Type Severity Reaction Status Date / Time Penicillins Allergy Severe Anaphylaxis Verified 12/06/20 15:26 venlafaxine HCl Allergy Severe Nausea/Vom/ Verified 12/06/20 15:26 [From Effexor] Diarrhea Family History Grandmother Hypertension Mother Hypertension Father Hypertension Heart disease Prostate cancer Surgical History History of gastric bypass History of tonsillectomy History of tubal ligation Social History Smoking Status: Current every day smoker tobacco type: cigarettes ROS ROS ED Constitutional Constitutional ED: Denies chills or fever(s) ENT ENT ED: Denies sore throat Cardiovascular Cardiovascular: Denies chest pain Respiratory/Chest Respiratory/Chest: Denies cough Gastrointestinal Gastrointestinal: Reports abdominal pain and nausea; Denies diarrhea or vomiting Genitourinary Genitourinary ED: Denies dysuria or hematuria Musculoskeletal Musculoskeletal: Denies myalgias Integumentary Denies rash Neurologic Neurologic: Denies headache(s) EXAM Physical Exam Const Vital Signs: 12/06/20 15:22 12/06/20 15:23 12/06/20 15:35 Temperature 98.3 F 98.3 F 98.3 F Temperature Source Temporal Temporal Temporal Pulse Rate 93 93 93 Respiratory Rate 20 H 20 H 20 H Blood Pressure 190/123 H 190/123 H 190/123 H Blood Pressure Mean 145 145 145 Pulse Ox 100 100 100 Oxygen Delivery Method Room Air Room Air Room Air 12/06/20 19:42 Temperature Temperature Source Pulse Rate 72 Respiratory Rate 18 Blood Pressure 188/99 H Blood Pressure Mean 128 Pulse Ox 100 Oxygen Delivery Method Room Air Positive well nourished and well developed General Appearance ED: well developed HEENT Reports moist mucous membranes Eyes PERRL and EOMs intact bilaterally Neck supple Resp normal respiratory effort and clear to auscultation bilaterally Cardio regular rate and regular rhythm Rate: other Other Details: Radial pulses are plus 2 out of 4 bilaterally are equal and symmetric GI GI Narrative: Abdomen is obese soft and nondistended with generalized pain in the lower abdomen slightly greatest in the right lower quadrant. However no voluntary guarding no rigidity no pulsatile mass Back/Spine no CVA tenderness Extremity normal to inspection Neuro oriented x3 and CN's II-XII intact bilaterally Sensorium / Orientation: alert Psych mental status grossly normal Skin no rashes or lesions noted MDM MDM MDM Narrative Medical decision making narrative: Patient presented ER in no acute distress. The abdomen is nonsurgical but with her increased pain in the right lower quadrant did have concern for possible appendicitis and therefore basic labs and a CT were obtained. Labs showed no clinically significant findings. CT scan with IV contrast revealed no acute intestinal pathology but did question some inflammation in the cervix. The patient denied any vaginal discharge and states she has no concern for STD. Therefore at this time she did not want a pelvic exam or treated for gonorrhea and chlamydia as she does not have symptoms. Therefore she was informed of these results she agrees to follow-up with [facility] and obtain an outpatient ultrasound if necessary. However if she does not have signs of a systemic infection or obvious surgical intervention need she is safe for discharge Lab Data Labs: Laboratory Results - last 24 hr 12/06/20 12/06/20 12/06/20 15:33 15:33 15:33 WBC 6.6 RBC 4.68 Hgb 11.7 L Hct 37.7 MCV 80.6 L MCH 25.0 L MCHC 31.0 L RDW Std Deviation 48.8 H RDW Coeff of Leonardo 16.9 H Plt Count 226 MPV 11.1 Immature Gran % (Auto) 0.300 Neut % (Auto) 49.3 Lymph % (Auto) 39.1 [place] % (Auto) 9.0 Eos % (Auto) 2.0 Baso % (Auto) 0.3 Absolute Neuts (auto) 3.2 Absolute Lymphs (auto) 2.56 Nucleated RBC % 0 Sodium 139 Potassium 3.4 L Chloride 106 Carbon Dioxide 29.0 Anion Gap 4 L BUN 14 Creatinine 0.63 Estim Creat Clear Calc 100.45 Est GFR (MDRD) Af Amer 134 Est GFR (MDRD) Non-Af 111 BUN/Creatinine Ratio 22.3 H Glucose 88 Calcium 8.6 Total Bilirubin 0.60 Direct Bilirubin 0.16 AST 12 L ALT 18 Alkaline Phosphatase 74 Total Protein 7.3 Albumin 3.6 Globulin 3.7 Lipase 65 L Serum , Qual NEGATIVE Urine Color Urine Clarity Urine pH Ur Specific [place] Urine Protein Urine Glucose (UA) Urine Ketones Urine Occult Blood Urine Nitrite Urine Bilirubin Urine Urobilinogen Ur Leukocyte Esterase Urine RBC Urine WBC Ur Squamous Epith Cells Urine Bacteria Hyaline Casts Urine Mucus 12/06/20 17:45 WBC RBC Hgb Hct MCV MCH MCHC RDW Std Deviation RDW Coeff of Leonardo Plt Count MPV Immature Gran % (Auto) Neut % (Auto) Lymph % (Auto) [place] % (Auto) Eos % (Auto) Baso % (Auto) Absolute Neuts (auto) Absolute Lymphs (auto) Nucleated RBC % Sodium Potassium Chloride Carbon Dioxide Anion Gap BUN Creatinine Estim Creat Clear Calc Est GFR (MDRD) Af Amer Est GFR (MDRD) Non-Af BUN/Creatinine Ratio Glucose Calcium Total Bilirubin Direct Bilirubin AST ALT Alkaline Phosphatase Total Protein Albumin Globulin Lipase Serum , Qual Urine Color Yellow Urine Clarity Sl. Cloudy Urine pH 5.0 Ur Specific [place] 1.020 Urine Protein 15 H Urine Glucose (UA) Normal Urine Ketones Negative Urine Occult Blood Negative Urine Nitrite Negative Urine Bilirubin Negative Urine Urobilinogen Normal Ur Leukocyte Esterase Negative Urine RBC 0 SEEN Urine WBC 0 SEEN Ur Squamous Epith Cells 0-5 SEEN Urine Bacteria RARE Hyaline Casts 0-5 SEEN Urine Mucus 1+ Radiography Diagnostic Testing: Radiology Impression Abdomen/Pelvis CT 12/06/20 15:52 IMPRESSION: 1. Questionable findings in the female reproductive tract, suboptimally evaluated. Possibly uterine/endometrial abnormality and/or pelvic inflammation. Refer to definitive imaging, neck imaging study is pelvic ultrasound. 2. Gastric bypass and patulous loop of bowel in the left flank, a finding of unclear significance. Electronically Signed: Shreya Saldaña MD at 17:33 EDT Tel , Service support , Discharge Plan Triage Chief Complaint: Abd Pain ED Provider: Polo Nieves Dx/Rx/DC Orders Clinical Impression: Nonspecific abdominal pain Prescriptions: New ondansetron HCl [Zofran] 4 mg tablet 4 mg PO Q8H PRN (Reason: nausea and vomiting) Qty: 21 RF: 0 oxycodone-acetaminophen [Percocet] 5-325 mg tablet 1 tab PO Q6H PRN (Reason: pain) 3 Days Qty: 12 RF: 0 No Action ibuprofen 800 MG tablet 800 mg PO BID RF: 0 naproxen 500 MG tablet 500 mg PO BID PRN Qty: 20 RF: 0 lamotrigine 25 mg tablet 25 mg PO DAILY RF: 0 Primary Care Provider: Vance Cardona Referrals: Vance Cardona DO [Primary Care Provider] - Disposition Disposition: Home, Self Care
[2020-12-06 20:28] VITALS: BP 142/79; PULSE 81; RESP 16; O2SAT 99
--- NOTE | 2020-12-06 20:29 | ED.RN ---
THIS NURSE REVIEWED D/C INSTRUCTIONS WITH PT. PT VERBALIZED UNDERSTANDING OF INSTRUCTIONS. IV D/C. IV CATHETER INTACT. PT TOLERATED WELL. PT DENIES FURTHER NEEDS OR QUESTIONS AT THIS TIME. PT AMBULATES FROM ROOM ON OWN WITHOUT ASSISTANCE FROM STAFF
== END 2020-12-06 20:30 | disposition home or self-care (01) ==
PROVIDERS: Emergency Provider Emergency Medicine; PCP Preventive Medicine Occupational Medicine
DX: R10.30 Lower abdominal pain, unspecified (principal); F17.210 Nicotine dependence, cigarettes, uncomplicated; Z79.899 Other long term (current) drug therapy
CPT/HCPCS: 74177; 80048; 80076; 81001; 83690; 84703; 85025; 96361; 96374; 96375; 99283; J7030; Q9967; A4216; J2405

== ENCOUNTER → 2020-12-17 10:51 | Outpatient (CLI) | payer MEDICAID, SELFPAY | PROVIDERS: PCP Preventive Medicine Occupational Medicine; Visit Provider Physician Assistant | DX: U07.1 COVID-19 (principal) | CPT/HCPCS: 87635; U0005; U0003 ==

== ENCOUNTER 2021-04-27 05:34 | Day surgery (SDC) | payer MEDICAID, SELFPAY ==
[2021-04-23 12:00] LABS: Hematocrit 39.5 % (37-47); Hemoglobin 12.5 g/dL (12.0-15.0); Mean Corp Hgb Conc 31.6 g/dL (32-36); Mean Corpuscular Volume 85.3 fL (81-99); Mean Platelet Vol. 10.9 fl (6.2-12.0); Platelet Count 295 K/mm3 (150-450); RBC Distribution Width CV 15.6 % (11.6-14.6); RBC Distribution Width SD 48.5 fl (35.1-43.9); Red Blood Count 4.63 M/mm3 (4.2-5.4)
[2021-04-23 12:29] LABS: Magnesium 2.4 mg/dL (1.6-2.6)
--- NOTE | 2021-04-24 12:32 | EKG12_ITS ---
Test Reason : PRE OP Blood Pressure : / mmHG Vent. Rate : 088 BPM Atrial Rate : 088 BPM P-R Int : 146 ms QRS Dur : 088 ms QT Int : 378 ms P-R-T Axes : 064 047 057 degrees QTc Int : 457 ms Normal sinus rhythm Normal ECG Confirmed by LORRIE STILES, SILVANO ([id number]), proposal editor STEPHEN MATTHEWS ([id number]) on 04/27/2021 9:43:04 AM Referred By: Claus Keller Confirmed By:SILVANO ANDREW MD
[2021-04-27] VITALS (12 sets, daily range): BP systolic 109–148; BP diastolic 60–99; PULSE 74–94; RESP 12–18; TEMP 36.2–37.2; O2SAT 94–100; BMI 38.2
--- NOTE | 2021-04-27 | HYST_PTH ---
PATIENT: SANAZ MORRIS LOC: [facility] U#:[id number] AGE/SX: 40/F ROOM: RE04/27/[address]: Dr. Claus Keller MD : 1980 BED: DIS: 04/27/2021 SPEC #: [id number] RECD: 04/27/21 10:36 STATUS: HELEN REBettie #: [id number] LUBNA: 04/27/21 00:[address]: Claus Keller DEPT: SURGICAL PATHOLOGY RECD BY: King Lopez ENTERED: 04/27/21 11:13 SP TYPE: HYSTERECT OTHR DR: Dr. Vance Cardona DO Tissues: Uterus, NOS Procedures: Surgery Specimen Level V HEADER OPERATION: ERAS, lap robotic hysterectomy, bilateral salpingectomy PRE-OP DIAGNOSIS: Post endometrial ablation syndrome TISSUE SUBMITTED: Uterus and bilateral fallopian tubes MICROSCOPIC DIAGNOSIS Uterus and bilateral fallopian tubes, hysterectomy and bilateral salpingectomy: Cervix ? mild chronic inflammation. Endometrium ? predominantly changes consistent with endometrial ablation with focal area of proliferative endometrium. Myometrium ? intramural leiomyomas (1.5 and 2.3 cm in greatest dimension). Bilateral fallopian tubes - no pathologic diagnosis. See comment. SANDI:carmen 04/28/2021 COMMENT One of the fallopian tubes consist only of fimbrial end. MICROSCOPIC DESCRIPTION Slides are reviewed. GROSS DESCRIPTION Received in fixative is one container labeled with the patient's name and designated uterus. The specimen consists of a uterus with attached cervix. Present free in the container are two portions of fallopian tubes, one consisting entirely of fimbrial end measuring 2 x 1.5 x 1 cm. The other fallopian tube measures 2.5 cm in length and 0.6 cm in average diameter. The fallopian tubes are not designated as to right or left. The uterus with cervix measures 9 x 7.5 x 3.5 cm and weighs 94 gm. The ectocervix is unremarkable. The cervical os is oval in contour. The endocervical canal measures 3 cm in length and is grossly unremarkable. The triangular endometrial cavity measures 3 x 2.5 cm. The reddish-tijerina endometrium measures up to 0.2 cm in thickness. The myometrium measures 2 cm in average thickness and contains two rubbery, pink-white nodules ranging in size from 1.5 to 2.3 cm and grossly resembling leiomyomas. Super[employer] Testing sections are submitted in ten cassettes as follows: 1 - anterior cervix, 2??posterior cervix, 3 & 4 - anterior uterine wall, 5 & 6 - posterior myometrial wall, 7 - smaller myometrial nodule, 8 - larger myometrial nodule, 9 - fimbrial end of fallopian tube, totally submitted, 10 - the other fallopian tube, sectioned and totally submitted. / AM:carmen 04/27/2021 TC:1 CPT: 04157
[2021-04-27] MEDS: dexAMETHasone 10 MG/ML Vial 8 MG IV (06:00)
[2021-04-27] MEDS: Lactated Ringers 1,000 ML 40 ML IV (06:27)
[2021-04-27] MEDS: Acetaminophen 500 MG Tablet 1000 MG PO ×2 (06:27→12:49)
[2021-04-27] MEDS: Celecoxib 200 MG Capsule 400 MG PO (06:28)
[2021-04-27] MEDS: Gabapentin 600 MG Tablet PO (06:28)
--- NOTE | 2021-04-27 06:32 | HP.PCM.OB_ITS ---
History and Physical Date of Admission: 04/27/21 Surgical History and Physical Date: 04/27/2021 Name: SARI MORRIS Age: 40 Date of : 1980 Sari Morris, a 40 year old female 3 0 0 0 3, presents for Robotic assisted total laparoscopic hysterectomy bilateral salpingectomy possible right oophorectomy, cystoscopy on April 27, 2021 at . -- Sari is here for Robotic total laparoscopic hysterectomy BS cystoscopy. Consents signed. She states she is doing well and has no concerns or questions. BR MEDICATIONS HISTORY: ALLERGIES: Penicillins, Swelling-throat, Effexor, Difficulty breathing, Effexor, Intolerance-vomiting, Effexor and Tachycardia Infections - Chicken pox, HPV Illnesses - Arthritis, cardiac catheterization Accidents - None Hospitalizations - surgery, childbirth Review of Systems: GENERAL - Denies fever, or chills SKIN - Denies skin changes EYES - Denies visual changes EARS - Denies difficulty hearing NOSE - Denies nasal congestion or bleeding MOUTH - Denies sore throat or difficulty swallowing NECK - Denies pain or swelling RESPIRATORY - Denies shortness of breath or wheezing CARDIOVASCULAR - Denies palpitations or chest pain GASTROINTESTINAL - Denies nausea, vomiting, diarrhea, constipation GENITOURINARY - Denies dysuria, frequency of urination, incontinence of urine MUSCULOSKELETAL - Denies joint or muscle pain NEUROLOGICAL - Denies localized numbness or weakness PSYCHIATRIC - Denies depression or anxiety ENDOCRINE - Denies heat or cold intolerance, weight loss or gain HEMATO-IMMUNOLOGIC - Denies excessive bleeding with cuts SOCIAL HISTORY: Alcohol Use - denies drinking Smoking - 1/2 pack/day--advised to quit Diet - balanced Diet Lifestyle - Exercise - none Seat Belt Use - always Employer - laid 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 04/04/2006 gastric bypass ; - 2. 11/02/2004 tubal ; - PHYSICAL EXAM BP- 134/86 Sitting, Right arm, large cuff Weight- 219.16321 lbs Height- 64.5 inch BMI:[id number] CONSTITUTIONAL - NAD, well nourished, and well developed SKIN - No rash, lesions, or ulcers HEENT - Normocephalic, PERRLA, EOMI NECK - No nodes, no nuchal rigidity and thyroid normal size and texture ABDOMEN - Without hepatosplenomegaly, distention, masses, rebound, or guarding; normal bowel sounds; no hernias and bilateral lower quadrant tenderness to deep palpation EXTREMITIES - No edema or calf tenderness NEUROLOGICAL - Cranial nerves II-XII grossly intact PSYCHIATRIC - A and O to time, place, person, mood and affect External Genital Vagina - non-tender without lesions Urethra/Urethral Meatus - non-tender Bladder - non-tender Vagina - vaginal urias are pink and moist without loss of rugae and no evidence of atrophy Cervix - without cervical motion tenderness and has normal size and features without evident lesions Uterus - 5-6 cm in size, mobile and nontender Adnexa - clear without masses or tenderness ASSESSMENT/PLAN: 1. Post Endometrial Ablation Syndrome Patient s/p hysteroscopy D ablation at [facility]. Patient with now greater than 6 months of pain with her period that has not resolved with IBU, Naproxen, Mobic, Tylenol. This pain is debilitating, she cannot work or get out of bed from that pain 2. Encounter For Other Preprocedural Examination Patient scheduled for robotic assisted total laparoscopic hysterectomy bilateral salpingectomy, possible right oophorectomy, cystoscopy for post tubal ablation syndrome Patient with a history of gastric bypass. Educated patient on increased risks for bowel, bladder, vascular injury. Discussed risk for larger incision needed. Patient states understanding and wishes to proceed. All questions were answered and consent was signed Patient taking no medications. No complications with anesthesia.
[2021-04-27 06:56] LABS: Bedside Glucose 90 mg/dL (70-110)
--- NOTE | 2021-04-27 10:21 | PCM.DC ---
Discharge Instructions Diet Discharge Diet: No restrictions Activity Discharge Activity: Return to Normal Activity, May Drive and May Shower May resume sexual activity in: 4-6 weeks Lifting Restrictions: No lifting over 25 pounds for 2 to 3-week Dressing / Incision Call your doctor if your incision/area has: Continuous Slow Oozing and Foul Smelling Discharge Call your doctor if you observe: Fever of 101 or Higher, Shortness of breath and Chest pain Follow Up Care Please Follow Up With: Claus Keller MD When: 2 weeks postoperatively Test Results: Test results from this visit will be discussed in further detail at your follow-up appointment, if applicable. Discharge Plan Admission Primary Reason for Your Visit: Hysterectomy Attending Provider: Claus Keller Primary Care Provider: Vance Cardona Instructions Additional Instructions / Restrictions: Regular diet. No lifting over 25 pounds for 2 to 3 weeks. No intercourse for 4 to 6 weeks. Okay to shower. No tub baths for 2 weeks. Call if fevers, chills, chest pain, shortness of breath. Follow-up 2 weeks postoperatively Discharge Orders/Prescriptions Prescriptions: New oxycodone 5 mg Tablet 5 mg PO Q6H PRN PRN (Reason: Pain Score 7-10/10) 5 Days Qty: 20 RF: 0 Continued omeprazole 40 mg capsule,delayed release(DR/EC) 40 mg PO DAILY RF: 0 acetaminophen 500 mg tablet 500 mg PO PRN PRN (Reason: Pain) RF: 0 atenolol 50 mg tablet 50 mg PO DAILY RF: 0 Referrals / Follow Up: Vance Cardona DO [Primary Care Provider] - Disposition Disposition (needs filled in before D/C Order can be placed): Home, Self Care
--- NOTE | 2021-04-27 10:22 | OP.PCM_ITS ---
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 Otherwise normal uterus, tubes, and ovaries. Post procedure cystoscopy revealed bilateral ureteral jets and no pathology noted. No adhesions abdominally noted Consent: Patient with pelvic pain and suspected post tubal ablation syndrome in need of robotic assisted total laparoscopic hysterectomy bilateral salpingectomy and cystoscopy. Patient understands the risk of the procedure include but are not limited to visceral or vascular injury, prolonged hospitalization, blood loss and need for transfusion, reoperation. Patient state understanding and wished to proceed. All questions were answered and consent was signed. Procedure: Patient was brought back to the OR where general anesthesia was found to be adequate. Clindamycin and gentamicin were given for infection prophylaxis. Patient was prepared and draped in a dorsal lithotomy position with yellowfin stirrups. A weighted speculum is placed in the posterior aspect of the vagina and cervical dilators were used to dilate the cervix. Uterine manipulator was placed. At Coy's point 5 mm trocar incision was made and 5 mm trocar was inserted under direct visualization. Abdomen was insufflated and above findings were noted. Midline supraumbilical 8 mm robotic trocar was inserted under direct visualization. Bilateral lower quadrant 8 mm robotic trochars were inserted under direct visualization. 12 mm right upper quadrant accessory port was inserted under direct visualization. Robot was docked with fenestrated bipolar and monopolar scissors. Using fenestrated bipolar and monopolar scissors the left fallopian tube was identified out to the fimbriae and the mesosalpinx was cut and cauterized, left fallopian tube was removed from abdominal cavity and sent to pathology. Left round ligament was cut and cauterized anterior and posterior portions of the broad ligament were dissected. Left utero-ovarian ligament was cut and cauterized. Bladder flap was developed. Left uterine vessels were skeletonized cut and cauterized, lateralized beyond the level of the colpotomy cup. In a similar fashion the right fallopian tube was identified to the fimbria and the mesosalpinx was cut and cauterized, right fallopian tube was removed from the abdominal cavity and sent to pathology. Right round ligament was cut and cauterized, anterior and posterior portion of the broad ligament were dissected. As noted above right br oad ligament fibroid was noted. Right utero-ovarian ligament was cut and cauterized. Bladder flap was completely developed beyond the level of colpotomy cup. Right uterine vessels were skeletonized cut and cauterized, lateralized beyond the level of colpotomy cup. Circumferential colpotomy was performed, uterus was removed from abdominal cavity. Good hemostasis was noted. Uterus was closed in a continuous running fashion with V lock suture. Good hemostasis was noted. Post procedure cystoscopy was performed and above findings were noted. 12 mm trocar was removed under direct visualization, and a fascial closure device was used to close fascia under direct visualization. Abdomen was desufflated and all other trochars were removed under direct visualization. Good hemostasis noted. Trocar sites were closed in a subcutaneous fashion. Good hemostasis was noted. All counts were correct x2. Patient tolerated procedure well and was brought to recovery in stable condition. Abdomen was desufflated and trochars were removed under direct visualization.
[2021-04-27] MEDS: Lactated Ringers @ 70 MLS/HR 70 ML IV (10:42)
[2021-04-27] MEDS: Ketorolac 30 MG/ML Syringe IV (10:43)
[2021-04-27] MEDS: Ondansetron 4 MG/2 ML Vial IV (10:50)
[2021-04-27] MEDS: oxyCODONE 5 MG Tablet PO (12:48)
== END 2021-04-27 23:59 | disposition home or self-care (01) ==
LOC: SDC 05:35 → AC 05:35
PROVIDERS: Anesthesiology; PCP Preventive Medicine Occupational Medicine; Referring Provider Obstetrics & Gynecology; Visit Provider Obstetrics & Gynecology
PROC: 0UT94ZZ Resection of Uterus, Percutaneous Endoscopic Approach (ICD-10-PCS; CPT 58571; principal; 2021-04-27 07:10)
DX: D25.1 Intramural leiomyoma of uterus (principal); N99.85 Post endometrial ablation syndrome; M19.90 Unspecified osteoarthritis, unspecified site; K21.9 Gastro-esophageal reflux disease without esophagitis; I10 Essential (primary) hypertension; G43.909 Migraine, unspecified, not intractable, without status migrainosus; Z79.899 Other long term (current) drug therapy
CPT/HCPCS: 58571; 00840; 52000; 36415; 82962; 83735; 85027; 86850; 86900; 86901; 87426; 88307; 93005; C9803; J7120; J2405

== ENCOUNTER 2022-12-24 02:15 | Emergency (ER) | payer MEDICAID, SELFPAY ==
[2022-12-24 02:17] VITALS: BP 191/93; PULSE 76; RESP 15; TEMP 35.9; O2SAT 100; BMI 32.3
--- NOTE | 2022-12-24 02:34 | EDS_ITS ---
HPI HPI - URI History of Present Illness Chief Complaint: Ear Problem Narrative Narrative: 42-year-old female, smoker, presents with 4 days of right ear pain. She states it is constant, but sometimes worse when she swallows. No fevers or chills, no nausea or vomiting, no other symptoms. She denies any exacerbating or alleviating factors to her right ear pain. She states she may be losing small amount of hearing in the right ear. ROS ROS ED ROS Narrative Constitutional: No fever, no chills. HEENT: No sore throat. No neck pain. No loss of vision. No rhinorrhea. No ear pain. Slight loss of hearing. Cardiovascular: No chest pain. No palpitations. No pedal edema. Respiratory: No cough, no shortness of breath. Abdominal: No abdominal pain. No nausea. No vomiting. Genitourinary: No dysuria. No hematuria. Musculoskeletal: No myalgias. No arthralgias. Neurologic: No headaches. No dizziness. No lightheadedness. Skin: No rash. No change in color. Psychiatric: No depression. No anxiety. [facility] Medical History Alcohol use Anxiety Arthritis Back pain Depression Gastric reflux History of echocardiogram History of stress test Hypertension Migraine headache RIGHT ANKLE SURGERY X3 Smoker Wears dentures Wears glasses Home Medications acetaminophen 500 mg tablet 500 mg PO PRN PRN Pain 04/14/21 [History Last Taken Unknown] atenolol 50 mg tablet 50 mg PO DAILY 04/14/21 [History Last Taken Unknown] omeprazole 40 mg capsule,delayed release 40 mg PO DAILY 04/14/21 [History Last Taken 04/27/21] oxycodone 5 mg tablet 5 mg PO Q6H PRN PRN Pain Score 4-10 5 days #20 tabs 04/27/21 [Rx Last Taken Unknown] azithromycin 250 mg tablet 250 mg PO DAILY #4 TABLETS 12/24/22 [Rx Last Taken Unknown] fluticasone propionate 50 mcg/actuation nasal spray,suspension (Flonase Allergy Relief) 1 spray intranasal DAILY #16 grams 12/24/22 [Rx Last Taken Unknown] Allergy/AdvReac Type Severity Reaction Status Date / Time Penicillins Allergy Severe Anaphylaxis Verified 12/24/22 02:24 venlafaxine HCl Allergy Severe Nausea/Vom/ Verified 12/24/22 02:24 [From Effexor] Diarrhea Family History Grandmother Hypertension Mother Hypertension Father Hypertension Heart disease Prostate cancer Surgical History History of cardiac catheterization History of gastric bypass History of tonsillectomy History of tubal ligation Social History Smoking Status: Light Smoker (<10/day) EXAM Physical Exam Narrative Exam Narrative: Afebrile. Vital signs noted. HEENT: Normocephalic. Atraumatic. PERRL, EOMI. Neck soft and supple. No point tenderness or step off. Inspection of the right ear reveals no swelling of the canal. No mastoid tenderness or erythema. Right TM is slightly erythematous with fluid behind it and loss of light reflex. Left TM is clear. Cardiovascular: Regular rate and rhythm. No murmurs, rubs, or gallops appreciated. Respiratory: No tachypnea. Lungs clear to auscultation bilaterally. Gastrointestinal: Abdomen soft, nontender, with normoactive bowel sounds. No rebound or guarding. Neurological: Awake. Alert. Nonfocal, nonlateralizing. Skin: No rash. Normal color. No pallor. Musculoskeletal: No pedal edema. Full range of motion extremities. Const Vital Signs: 12/24/22 02:17 Temperature 96.7 F L Temperature Source Temporal Pulse Rate 76 Respiratory Rate 15 Blood Pressure 191/93 H Blood Pressure Mean 125 Pulse Ox 100 Oxygen Delivery Method Room Air MDM MDM MDM Narrative Medical decision making narrative: Smoking cessation was discussed. I do feel that she has an otitis media. She has anaphylaxis to penicillin so she was started on azithromycin and given her first dose of 500 mg here in the emergency department. A prescription was written for 250 mg for the next 4 days. I also wrote her prescription for Flonase to use to help drain the eustachian tubes. She will take over-the- counter medications for analgesia. Disposition is discharged home in stable condition. Differential Diagnosis Differential Diagnosis: Otitis media, otitis externa, mastoiditis. Serous otitis. Why less likely: Clinical examination is most consistent with otitis media. Discharge Plan Triage Chief Complaint: Ear Problem ED Provider: Bryce Parr Dx/Rx/DC Orders Clinical Impression: Otitis media, Otalgia of right ear Instructions: ED Otitis Media Antibiotic ... Prescriptions: New azithromycin 250 mg tablet 250 mg PO DAILY Qty: 4 0RF fluticasone propionate [Flonase Allergy Relief] 50 mcg/actuation spray,suspension 1 spray intranasal DAILY Qty: 16 0RF Rx Instructions: administer into each nostril No Action omeprazole 40 mg capsule,delayed release(DR/EC) 40 mg PO DAILY acetaminophen 500 mg tablet 500 mg PO PRN PRN (Reason: Pain) atenolol 50 mg tablet 50 mg PO DAILY oxycodone 5 mg Tablet 5 mg PO Q6H PRN PRN (Reason: Pain Score 4-10) 5 Days Qty: 20 0RF Primary Care Provider: Care Physician,No Primary Referrals: Shelley Butts DO [Med Staff - [employer]] - 1 Week if not improving Vance Cardona DO [Non-Staff] - 1-2 Days if not improving Activity Restrictions/Additional Instructions: Stop Smoking. You have been given your first dose of antibiotic in the emergency department on 12/24/2022. Start your prescription on 12/25/2022 for 4 days. Disposition Disposition: Home, Self Care
[2022-12-24 02:44] VITALS: BP 180/79; PULSE 82; RESP 16; O2SAT 98
[2022-12-24] MEDS: Azithromycin 250 MG Tablet 500 MG PO (02:44)
== END 2022-12-24 02:45 | disposition home or self-care (01) ==
PROVIDERS: Emergency Provider Emergency Medicine; Visit Provider Emergency Medicine
DX: H66.91 Otitis media, unspecified, right ear (principal); F17.200 Nicotine dependence, unspecified, uncomplicated
CPT/HCPCS: 99283

== ENCOUNTER 2024-01-26 17:43 | Emergency (ER) | payer MEDICAID, SELFPAY ==
[2024-01-26 17:43] VITALS: BP 170/115; PULSE 94; RESP 16; TEMP 36.6; O2SAT 99; BMI 33.7
--- OUTSIDE RECORDS SUMMARY | 2024-01-26 20:33 | XMS RPT_ITS | CCD ---
Author Organization [facility] Inform ion Partnership PLANNER SCHEDULER [facility] Care Team Providers Care Aromatherapist Name Role Phone SMITHA DODD DO Primary Care Physician [phone] Robert Bolden MD Primary Care Provider ROBERT BOLDEN Primary Care Unavailable Allergies Allergy Classification Reported Allergen(s) Allergy Type Date of Onset Reaction(s) Facility (1 source) Penicillin; Translations: [penicillin] Drug Allergy Throat swelling [facility] Comment on above: THROAT SWELLS (8 sources) venlafaxine; Translations: [venlafaxine] Drug Allergy 8 Vomiting, Shortness of Breath, Dystonia [facility] (8 sources) Penicillins; Translations: [PENICILLINS] Drug Allergy 8 Anaphylaxis [facility] Work Phone: (1 source) VENLAFAXINE ANALOGUES; Translations: [VENLAFAXINE ANALOGUES] Propensity to adverse reactions to drug (disorder) 8 [facility] Repository Medications Current Medications Medication Drug Class(es) Dates Sig (Normalized) Sig (Original) atenolol 50 mg oral tablet (1 source) beta-Adrenergic Mila Start: 01-28-2021 atenolol 50 mg oral tablet Dose : 50 mg = 1 tab(s), Oral, qHS, # 30 tab(s), 0 Refill(s), Pharmacy: [facility], Hypertension, 162, cm, 01/28/21 14:48:00 EDT, Height, kg, 01/28/21 14:38:00 EDT, Dosing Weight Start Date: 01/28/21 Status: Ordered cyclobenzaprine hydrochloride 10 mg oral tablet (2 sources) Muscle Relaxant Start: 03-03-2022 End: 04-02-2022 take 1 tablet by mouth three times daily as needed for muscle spasms cyclobenzaprine (FLEXERIL) 10 mg tablet Indications: muscle spasm Take 1 tablet by mouth three times daily as needed for muscle spasm. 30 tablet 0 03/03/2022 04/02/2022 Active Comment on above: Take 1 tablet by berna three times daily as needed for muscle spasm. naproxen 500 mg oral tablet (1 source) Nonsteroidal Anti-inflammatory Drug Start: 01-28-2021 naproxen 500 mg oral tablet 0 Refill(s) Start Date: 01/28/21 Status: Ordered omeprazole 40 mg delayed release oral capsule (1 source) Proton Pump Inhibitor Start: 01-21-2021 End: 02-20-2021 omeprazole 40 mg oral delayed release capsule Dose : 40 mg = 1 cap(s), Oral, qDay, in absence of PCP needs appt, X 30 day(s), # 30 cap(s), 0 Refill(s), 02/20/21 15:55:00 EST, Pharmacy: [facility], 162.6, cm, 12/19/20 15:08:00 EDT, Height, kg, 12/19/20 15:08:00 EDT, Dosing Weight Start Date: 01/21/21 Stop Date: 02/20/21 Status: Ordered valsartan 160 mg oral tablet (1 source) Angiotensin 2 Receptor Mila Start: 01-28-2021 valsartan 160 mg oral tablet Dose : 160 mg = 1 tab(s), Oral, qAM, # 30 tab(s), 0 Refill(s), Pharmacy: [facility], Hypertension, 162, cm, 01/28/21 14:48:00 EDT, Height, kg, 01/28/21 14:38:00 EDT, Dosing Weight Start Date: 01/28/21 Status: Ordered Completed/Discontinued Medications Medication Drug Class(es) Dates Sig (Normalized) Sig (Original) Albuterol (1 source) beta2-Adrenergic Agonist Start: 12-19-2020 End: 01-18-2021 take 2 puff(s) by inhalation every six hours as needed for wheezing ProAir HFA MDI (90 mcg/inh) inhalation aerosol 2 puff(s), Inhalation, q6hr, PRN as needed for wheezing, # 8 gram(s), 0 Refill(s), Pharmacy: [facility], 162.6, cm, 12/19/20 15:08:00 EDT, Height, kg, 12/19/20 15:08:00 EDT, Dosing Weight Start Date: 12/19/20 Stop Date: 01/18/21 Status: Ordered ibuprofen 800 mg oral tablet (7 sources) Nonsteroidal Anti-inflammatory Drug Start: 07-29-2017 ibuprofen (MOTRIN) 800 mg tablet nortriptyline 25 mg oral capsule (7 sources) Tricyclic Antidepressant Start: 02-11-2022 take 1 capsule by mouth once daily at bedtime nortriptyline (PAMELOR) 25 mg capsule Indications: Chronic bilateral low back pain without sciatica , Cervicalgia , Depressive disorder Take 1 capsule by mouth daily at bedtime. 30 capsule 1 02/11/2022 Active Comment on above: Take 1 capsule by mo uth daily at bedtime. Problems Active Problems Problem Classification Problem Date Documented Date Episodic/Chronic Abdominal pain (1 source) Abdominal pain 05-03-2019 Episodic Anxiety disorders (1 source) Anxiety 03-07-2019 Chronic Attention-deficit, conduct, and disruptive behavior disorders (1 source) Attention deficit hyperactivity disorder 03-06-2019 Chronic Deficiency and other anemia (1 source) Anemia 03-06-2019 Episodic Esophageal disorders (1 source) Gastroesophageal reflux disease 03-06-2019 Chronic Essential hypertension (1 source) Hypertensive disorder 03-07-2019 Chronic Fluid and electrolyte disorders (1 source) Hypokalemia 05-29-2019 Episodic Genitourinary symptoms and ill-defined conditions (1 source) Proteinuria 05-03-2019 Episodic Headache; including migraine (1 source) Episodic tension-type headache 07-27-2019 Chronic Menstrual disorders (2 sources) Disorder of menstruation; Translations: [Menometrorrhagia] 03-07-2019 Chronic Mood disorders (8 sources) Severe recurrent major depression; Translations: [Depressive disorder] Onset: 02-15-2022 06-11-2020 Chronic Nonspecific chest pain (1 source) Chest pain 05-29-2019 Episodic Other and unspecified benign neoplasm (1 source) Benign neoplasm of soft tissue 05-01-2020 Episodic Other connective tissue disease (1 source) Cramp in lower limb 06-11-2020 Episodic Other ear and sense organ disorders (1 source) Otalgia, right ear; Translations: [Otalgia, unspecified] Episodic Other nervous system disorders (1 source) Carpal tunnel syndrome 03-06-2019 Chronic Other nutritional; endocrine; and metabolic disorders (1 source) Obese class II 01-28-2021 Chronic Other screening for suspected conditions (not mental disorders or infectious disease) (2 sources) Patient encounter status; Translations: [Encounter for screening mammogram for malignant neoplasm of breast] Episodic Ovarian cyst (1 source) Cyst of ovary 05-03-2019 Episodic Ness-; endo-; and myocarditis; cardiomyopathy (except that caused by tuberculosis or sexually transmitted disease) (1 source) Ejection murmur 05-03-2019 Chronic Peripheral and visceral atherosclerosis (1 source) Abdominal aortic atherosclerosis 05-03-2019 Chronic Residual codes; unclassified (1 source) Chronic pain 03-06-2019 Episodic Residual codes; unclassified (1 source) Difficulty sleeping 06-11-2020 Episodic Residual codes; unclassified (1 source) Insomnia 03-07-2019 Episodic Residual codes; unclassified (1 source) Tobacco user 05-30-2019 Episodic Spondylosis; intervertebral disc disorders; other back problems (7 sources) Degeneration of lumbar intervertebral disc; Translations: [Other intervertebral disc degeneration, lumbar region] Onset: 02-11-2022 02-11-2022 Chronic Unclassified (1 source) Mitotane (substance) 03-06-2019 Past or Other Problems Problem Classification Problem Date Documented Da te Episodic/Chronic Spondylosis; intervertebral disc disorders; other back problems (16 sources) Chronic low back pain; Translations: [Chronic low back pain] Onset: 02-04-2017 11-14-2019 Episodic Results Test Name Value Interpretation Reference Range Facility Satish 05-26-2022 CNOV Office Visit ([facility]) -------- SARI MORRIS ([id number]) 1980 F Date Time Provider Department 05/26/22 7:30 AM MEGHAN VILLA [facility] During your visit today, we recorded the following information about you: Temperature Pulse Respiration Blood pressure 97.9 degrees 88/minute 16/minute 148/84 Weight 88.8 kg Meghan Villa APRN.LIBRARY HELPER 05/26/2022 7:50 AM Signed Subjective HPI Nontoxic-appearing female presents urgent care chief complaint right ear pain. Duration of symptoms 1 week. Associated symptoms right ear pain and muffled hearing. Has not used any OTC medications. Presents today due to increasing pain. States had a hard time sleeping last night. States she is having a hard time hearing. Has had chronic ear infections in the past . Was told by Her eardrum was being destroyed by bacteria. Had multiple perforations in the past. Presents today for evaluation. Denies any fever body aches chills productive cough chest pain shortness of breath pleuritic pain hemoptysis nausea vomiting abdominal pain change in bowel or bladder habits. Past medical history prescription medication use and allergies reviewed. .Patient presents with: Ear Pain: Right ear pain x 1 week PAST MEDICAL HISTORY Diagnosis Date ADD (attention deficit disorder) Anxiety 03/07/2019 Chronic low back pain 02/04/2017 DDD (degenerative disc disease), lumbar 2011 Episodic tension type headache 07/27/2019 Gastric bypass status for obesity 2006 GERD (gastroesophageal reflux disease) 03/06/2019 Hypertensive disorder 03/07/2019 Iron deficiency anemia 2018 Menometrorrhagia 2020 Upper GI bleed 09/01/2017 PAST SURGICAL HISTORY Procedure Laterality Date ESOPHAGOGASTRODUOD ENOSCOPY TRANSORAL DIAGNOSTIC 09/01/2017 EGD - status post Kirby-en-Y gastric bypass with marginal ulceration GASTRIC BYPASS HX 2006 [facility] HYSTEROSCOPY,W/END OMETRIAL ABLATION 10/2020 LAPAROSCOPY W TOTAL HYSTERECTOMY UTERUS 250 GM/< 04/27/2021 bilateral salpingectomy LAPAROSCOPY,ENTERO LYSIS 2019 LIGATE FALLOPIAN TUBE 11/02/2004 PAST SURGICAL HISTORY OF Right 2015 ORIF, ankle surgery x 3, [id number]. TONSILLECTOMY AND ADENOIDECTOMY TOTAL ABDOM HYSTERECTOMY 05/2021 [facility]. ALLERGIES Effexor [Venlafaxine Analogues] and Penicillins MEDICATIONS nortriptyline (PAMELOR) 25 mg capsule Take 1 capsule by mouth daily at bedtime. ibuprofen (MOTRIN) 800 mg tablet FAMILY HISTORY Problem Relation Age of Onset Breast Cancer Mother Hypertension Mother Hypertension Father Prostate Cancer Father Heart Attack Father No Known Problems Brother Diabetes Maternal Grandmother Heart Attack Maternal Grandfather Heart Attack Paternal Grandfather Social History Tobacco Use Smoking status: Every Day Packs/day: 1.00 Years: 24.00 Pack years: 24.00 Types: Cigarettes Smokeless tobacco: Never Tobacco comments: 04/05 PPD 2021. Substance Use Topics Alcohol use: Yes Comment: occasional - liquor Drug use: Never BP 148/84 Pulse 88 Temp 36.6 ?C (97.9 ?F) (Tympanic) Resp 16 Wt 88.8 kg (195 lb 12.8 oz) BMI 33.09 kg/m? Review of Systems Constitutional: Negative for chills, fever and malaise/fatigue. HENT: Positive for ear pain. Negative for congestion, ear discharge, sinus pain and sore throat. Eyes: Negative for blurred vision, pain, discharge and redness. Respiratory: Negative for cough, hemoptysis, sputum production, shortness of breath, wheezing and stridor. Cardiovascular: Negative for chest pain. Gastrointestinal: Negative for abdominal pain, diarrhea, nausea and vomiting. Musculoskeletal: Negative for myalgias. Skin: Negative for itching and rash. Neurological: Negative for dizziness and headaches. Objective Physical Exam Constitutional: General: She is not in acute distress. Appearance: She is not diaphoretic. HENT: Head: Normocephalic. Right Ear: Tympanic membrane, ear canal and external ear normal. Left Ear: Tympanic membrane, ear canal and external ear normal. Nose: Nose normal. Mouth/Throat: Mouth: Mucous membranes are moist. Pharynx: Oropharynx is clear. No oropharyngeal exudate or posterior oropharyngeal erythema. Eyes: Conjunctiva/sclera : Conjunctivae normal. Pupils: Pupils are equal, round, and reactive to light. Cardiovascular: Rate and Rhythm: Normal rate and regular rhythm. Heart sounds: Normal heart sounds. Pulmonary: Effort: Pulmonary effort is normal. No tachypnea, accessory muscle usage or respiratory distress. Breath sounds: Normal breath sounds. No stridor. No wheezing, rhonchi or rales. Abdominal: Palpations: Abdomen is soft. Musculoskeletal: Cervical back: Normal range of motion and neck supple. No rigidity or tenderness. Lymphadenopathy: Cervical: No cervical adenopathy. Skin: General: Skin is warm and dry. Neurological: (more content not included)... [facility] 03[facility]02-2022 [facility] .GFRon 01-29-2021 GFR Non- 110 ml/min/1.73sqm Normal Count includes the [facility] ([place]) Comment on above: Result Comment: GFR Population mean for , Non- Americans Ages 20-29 = 116 mL/min/1.73 sq.m. Ages 30-39 = 107 mL/min/1.73 sq.m. Ages 40-49 = 99 mL/min/1.73 sq.m. Ages 50-59 = 93 mL/min/1.73 sq.m. Ages 60-69 = 85 mL/min/1.73 sq.m. Ages 70+ = 75 mL/min/1.73 sq.m. Chronic Kidney Disease: Less than 60 mL/min/1.73 square meters End Stage Renal Disease: Less than 15 mL/min/1.73 square meters Performed By: #### G FR, CMP, TSH #### [address] [address] GFR 133 ml/min/1.73sqm Normal [facility] ([place]) Comment on above: Result Comment: GFR Population mean for , Non- Americans Ages 20-29 = 116 mL/min/1.73 sq.m. Ages 30-39 = 107 mL/min/1.73 sq.m. Ages 40-49 = 99 mL/min/1.73 sq.m. Ages 50-59 = 93 mL/min/1.73 sq.m. Ages 60-69 = 85 mL/min/1.73 sq.m. Ages 70+ = 75 mL/min/1.73 sq.m. Chronic Kidney Disease: Less than 60 mL/min/1.73 square meters End Stage Renal Disease: Less than 15 mL/min/1.73 square meters Performed By: #### G FR, CMP, TSH #### [address] [address] CMPon 01-29-2021 Albumin Level 3.7 G/dL Normal 3.5-5.0 [facility] ([place]) Comment on above: Performed By: #### G FR, CMP, TSH #### [address] [address] Albumin/Globulin [Mass ratio] 1.2 {ratio} Normal 1.1-2.5 [facility] ([place]) Comment on above: Performed By: #### G FR, CMP, TSH #### [address] [address] ALP [Catalytic activity/Vol] 95 U/L Normal 40-135 [facility] ([place]) Comment on above: Performed By: #### G , CMP, TSH #### [address] [address] ALT [Catalytic activity/Vol] 22 U/L Normal 14-59 [facility] ([place]) Comment on above: Performed By: #### G , CMP, TSH #### [address] [address] AST [Catalytic activity/Vol] 11 U/L Normal 10-40 [facility] ([place]) Comment on above: Performed By: #### G , CMP, TSH #### [address] [address] Bili Total 0.3 mg/dL Normal 0.2-1.0 [facility] ([place]) Comment on above: Result Comment: Use of this assay is not recommended for patients undergoing treatment with eltrombopag due to the potential for falsely elevated results. Performed By: #### G FR, CMP, TSH #### [address] [address] BUN/Creatinine Ratio 27 ratio Normal 7-27 [facility] ([place]) Comment on above: Performed By: #### G FR, CMP, TSH #### [address] [address] Calcium [Mass/Vol] 8.5 mg/dL Normal 8.4-10.2 [facility] ([place]) Comment on above: Performed By: #### G FR, CMP, TSH #### [address] [address] Chloride [Moles/Vol] 103 mmol/L Normal 98-107 [facility] ([place]) Comment on above: Performed By: #### G FR, CMP, TSH #### [address] [address] CO2 [Moles/Vol] 27 mmol/L Normal 22-29 [facility] ([place]) Comment on above: Performed By: #### G FR, CMP, TSH #### [address] [address] Creatinine [Mass/Vol] 0.60 mg/dL Normal 0.55-1.02 [facility] ([place]) Comment on above: Performed By: #### G FR, CMP, TSH #### [address] [address] Electrolyte Balance 10.0 mEq/L Normal [facility] ([place]) Comment on above: Performed By: #### G FR, CMP, TSH #### [address] [address] Globulin 3.2 G/dL Normal [facility] ([place]) Comment on above: Performed By: #### G FR, CMP, TSH #### [address] [address] Glucose [Mass/Vol] 100 mg/dL Normal 70-105 [facility] ([place]) Comment on above: Performed By: #### G FR, CMP, TSH #### [address] [address] Potassium [Moles/Vol] 3.9 mmol/L Normal 3.5-5.1 [facility] ([place]) Comment on above: Performed By: #### G FR, CMP, TSH #### [address] [address] Sodium [Moles/Vol] 140 mmol/L Normal 136-145 [facility] ([place]) Comment on above: Performed By: #### G FR, CMP, TSH #### [facility] [address] [place], [place] [address] Total Protein 6.9 G/dL Normal 6.4-8.2 [facility] ([place]) Comment on above: Performed By: #### G FR, CMP, TSH #### [facility] [address] [place], [place] [address] Urea nitrogen [Mass/Vol] 16 mg/dL Normal 7-18 [facility] ([place]) Comment on above: Performed By: #### G FR, CMP, TSH #### [facility] [address] [place], [place] [address] LABORATORYOrdered By: Gina Garner on 01-29-2021 Albumin BCP dye [Mass/Vol] 3.7 G/dL Invalid Interpretation Code 3.5 - 5.0 G/dL AO ADM SS Albumin/Globulin [Mass ratio] 1.2 {ratio} Invalid Interpretation Code 1.1 - 2.5 ratio AO ADM SS ALP [Catalytic activity/Vol] 95 U/L Invalid Interpretation Code 40 - 135 U/L AO ADM SS ALT With P-5'-P [Catalytic activity/Vol] 22 U/L Invalid Interpretation Code 14 - 59 U/L AO ADM SS AST With P-5'-P [Catalytic activity/Vol] 11 U/L Invalid Interpretation Code 10 - 40 U/L AO ADM SS Bilirubin [Mass/Vol] 0.3 mg/dL Invalid Interpretation Code 0.2 - 1.0 mg/dL AO ADM SS Calcium [Mass/Vol] 8.5 mg/dL Invalid Interpretation Code 8.4 - 10.2 mg/dL AO ADM SS Chloride [Moles/Vol] 103 mmol/L Invalid Interpretation Code 98 - 107 mmol/L AO ADM SS CO2 [Moles/Vol] 27 mmol/L Invalid Interpretation Code 22 - 29 mmol/L AO ADM SS Creatinine [Mass/Vol] 0.60 mg/dL Invalid Interpretation Code 0.55 - 1.02 mg/dL AO ADM SS Electrolyte Balance 10.0 mEq/L Invalid Interpretation Code AO ADM SS Globulin 3.2 G/dL Invalid Interpretation Code AO ADM SS Glucose [Mass/Vol] 100 mg/dL Invalid Interpretation Code 70 - 105 mg/dL AO ADM SS Potassium [Moles/Vol] 3.9 mmol/L Invalid Interpretation Code 3.5 - 5.1 mmol/L AO ADM SS Protein [Mass/Vol] 6.9 G/dL Invalid Interpretation Code 6.4 - 8.2 G/dL AO ADM SS Sodium [Moles/Vol] 140 mmol/L Invalid Interpretation Code 136 - 145 mmol/L AO ADM SS TSH Qn 1.86 m[IU]/L Invalid Interpretation Code 0.36 - 3.74 mcIU/mL AO ADM SS Urea nitrogen [Mass/Vol] 16 mg/dL Invalid Interpretation Code 7 - 18 mg/dL AO ADM SS Urea nitrogen/Creatinine [Mass ratio] 27 ratio Invalid Interpretation Code 7 - 27 ratio AO ADM SS LABORATORYOrdered By: SYSTEM SYSTEM on 01-29-2021 GFR 133 ml/min/1.73sqm Invalid Interpretation Code AO Chemistry S GFR Non- 110 ml/min/1.73sqm Invalid Interpretation Code AO Chemistry S TSHon 01-29-2021 TSH Qn 1.86 m[IU]/L Normal 0.36-3.74 [facility] ([place]) Comment on above: Performed By: #### G FR, CMP, TSH #### [address] [address] CTPCRon 12-11-2020 C. trachomatis Interp Normal See CT Interp N [facility] ([place]) Comment on above: Result Comment: C. t rachomatis DNA not detected. Specimen is presumptive negative for C. trachomatis. A negative result does not preclude C. trachomatis infection because results depend on adequate specimen collection, absence of inhibitors, and sufficient DNA to be detected. See CT Interp N Performed By: #### N GPCR1, CTPCR #### [address] [address] C.trachomatis PCR Negative Normal Negative [facility] ([place]) Comment on above: Result Comment: Gar sport tube received with two swabs. Review collection procedure. Inappropriate collection may cause aberrant results. Molecular (PCR) assay performed on the [employer] Prim[employer] 4800 system. Performed By: #### N GPCR1, CTPCR #### [address] [address] Chlam Source Cervix Normal [facility] ([place]) Comment on above: Performed By: #### N GPCR1, CTPCR #### [facility] [address] [place] [address] [id number] 12-11-2020 GC PCR Source Cervix Normal [facility] ([place]) Comment on above: Performed By: #### N GPCR1, CTPCR #### [address] [address] N. gonorrhoeae (PCR) Negative Normal Negative [facility] ([place]) Comment on above: Result Comment: Gar sport tube received with two swabs. Review collection procedure. Inappropriate collection may cause aberrant results. Molecular (PCR) assay performed on the [employer] 4800 System. Performed By: #### N GPCR1, CTPCR #### [address] [address] N. gonorrhoeae Interp Normal See NG Interp N [facility] ([place]) Comment on above: Result Comment: N. g onorrhoeae DNA not detected. Specimen is presumptive negative for N. gonorrhoeae. A negative result does not preclude Neisseria gonorrhoeae infection because results depend on adequate specimen collection, absence of inhibitors, and sufficient DNA to be detected. See NG Interp N Performed By: #### N GPCR1, CTPCR #### [address] [address] Vital Signs Date Time Vital Sign Value Performing Clinician Kofi agviria 05-26-2022 07:26-0500 Body temperature 97.9 [degF] Meghan Villa APRN.LIBRARY HELPER Work Phone: [facility] 05-26-2022 07:26-0500 Body weight 88.81 kg Meghan Villa APRN.LIBRARY HELPER Work Phone: [facility] 05-26-2022 07:26-0500 Diastolic blood pressure 84 mm[Hg] Meghan Villa APRN.CNP Work Phone: [facility] 05-26-2022 07:26-0500 Heart rate 88 /min Meghan Villa APRN.LIBRARY HELPER Work Phone: [facility] 05-26-2022 07:26-0500 Respiratory rate 16 /min Meghan Villa DEPUTY FIRE CHIEF.LIBRARY HELPER Work Phone: [facility] 05-26-2022 07:26-0500 Systolic blood pressure 148 mm[Hg] Meghan Villa DEPUTY FIRE CHIEF.LIBRARY HELPER Work Phone: [facility] 03-03-2022 14:16-0500 Diastolic blood pressure 125 mm[Hg] Trevor VALDEZ-C Work Phone: [facility] 03-03-2022 14:16-0500 Heart rate 101 /min Trevor VALDEZ-C Work Phone: [facility] 03-03-2022 14:16-0500 Systolic blood pressure 167 mm[Hg] Trevor VALDEZ-C Work Phone: [facility] 03-03-2022 13:39-0500 Body height 163.8 cm Trevor MANZANARESC Work Phone: [facility] 03-03-2022 13:39-0500 Body weight 87.5 kg Trevor VALDEZ-C Work Phone: [facility] 03-03-2022 13:39-0500 SaO2% (BldA) [Mass fraction] 98 % Trevor VALDEZ-C Work Phone: [facility] Encounters Encounter Date Encounter Type Care Provider Facility Start: 05-26-2022 End: 05-26-2022 ambulatory ROBERT BOLDEN Facility:[facility] Start: 05-26-2022 End: 05-26-2022 Office outpatient visit 15 minutes Meghan Villa DEPUTY FIRE CHIEF.LIBRARY HELPER Work Phone: [facility] Comment on above: Otalgia, right (Prim beth Dx) Start: 04-16-2022 ambulatory No Pcp (Historical) [facility] Start: 04-12-2022 ambulatory No Pcp (Historical) [facility] Start: 03-03-2022 Documentation procedure Mammog kimberly Coordinator [facility] Start: 03-03-2022 Letter encounter Mammography Coordinator [facility] Department Start: 03-03-2022 End: 03-03-2022 Patient encounter procedure Trevor Gil PA-C Work Phone: [facility] [place] Comment on above: Chronic bilateral lo w back pain without sciatica (Primary Dx) Start: 03-02-2022 End: 03-02-2022 Subsequent hospital visit by physician Screen Mammo [facility] Comment on above: Encounter for screen ing mammogram for breast cancer [Z12.31] Start: 02-17-2022 ambulatory Robert dykes MD Work Phone: Internal Medicine [facility] Start: 01-29-2021 End: 01-29-2021 Patient encounter procedure SMITHA DODD DO [facility] Procedures Date Procedure Procedure Detail Performing Clinician Start: 03-02-2022 End: 03-02-2022 Mammography Bulk Order Provider Start: 06-07-2019 Cardiac catheterization SMITHA DODD DO Start: 05-23-2019 Cardiovascular stres s testing SMITHA DODD DO Comment on above: 1. No evidence of Le xiscan-induced ischemia per EKG criteria. 2. The test was switched from exercise perfusion imaging to walking Lexiscan as patient had a significant blood pressure elevation at baseline. . Abnormal myocardial perfusion study. 2. Mild ischemia involving the anterior wall. No fixed defects. 3. Dilated LEFT ventricle with normal systolic function with ejection fraction of 58%. Next 4. No prior studies for comparison. Start: 05-23-2019 Echocardiography SMITHA DODD DO Comment on above: 1. Left ventricle: T he cavity size is normal. Wall thickness is normal. Systolic function is normal. The estimated ejection fraction is 60-65%. Wall motion is normal; there are no regional wall motion abnormalities. 2. Mitral valve: There is trivial regurgitation. 3. Right ventricle: The RV systolic pressure by Doppler is 20 mm Hg. 4. Pulmonic valve: There is trivial regurgitation. 5. Tricuspid valve: There is trivial regurgitation. 6. Right atrium: The estimated right atrial pressure is 10 mm Hg. 7. Please note the above amounts of valvular regurgitation would be considered within normal limits. Start: 03-11-2017 Arthroscopy of ankle RO EZEKIEL DODD DO Comment on above: Right ankle with sandro dware removal Start: 04-04-2015 Ankle joint operations SMITHA DODD DO Start: 05-08-2007 Bypass of stomach LOLITA DODD DO Start: 11-02-2004 Ligation of fallopian tube SMITHA DODD DO Tonsillectomy SMITHA DODD DO Plan of Treatment Date Care Activity Detail Author Start: 03-02-2023 Mammography [facility] Start: 12-03-2022 Influenza vaccination Influenza Vacc ine (#1) [facility] Start: 12-03-2021 Influenza vaccination INFLUENZA (#1) [facility] Start: 2018 Mammography MAMMOGRAM [facility] Start: 2008 HPV TESTING HPV TESTING [facility] Start: 12-03-1999 PAP TESTING PAP TESTING [facility] Start: 1997 Urine microalbumin profile [facility] Start: 1996 HEPATITIS C SCREENING HEPATITIS C SC REENING [facility] Start: 1996 HIV SCREENING HIV SCREENING [facility] Start: 1984 PNEUMOCOCCAL (1 - PCV) PNEUMOCOCCAL (1 - PCV) [facility] Start: 1984 Pneumococcal vaccination Pneumococcal Vaccine (1 - PCV) [facility] Start: 06-02-1979 COVID-19 VACCINE (#1) COVID-19 VACCI NE (#1) [facility] Start: 1978 HEPATITIS B (1 of 3 - 3-dose series) HEPATITIS B (1 of 3 - 3-dose series) [facility] Start: 1978 Hepatitis B Vaccine (1 of 3 - 3-dose series) Hepatitis B Vaccine (1 of 3 - 3-dose series) [facility] End: 04-02-2023 Radex spine lumbosacral minimum 4 views XR LUMBAR MOTION 4V AP/LAT/ FLEX/EXT Radiology Routine Chronic bilateral low back pain without sciatica 1 Occurrences starting 03/03/2022 until 04/02/2023 [facility] Work Phone: Comment on above: 1 Occurrences starti ng 03/03/2022 until 04/02/2023 End: 03-19-2023 Screening mammography bi 2-view breast inc cad JAZMYN SCREENING Radiology Routine Encounter for screening mammogram for breast cancer 1 Occurrences starting 02/17/2022 until 03/19/2023 [facility] Work Phone: Comment on above: 1 Occurrences starti ng 02/17/2022 until 03/19/2023 [facility] Payers Date Payer Category Payer Medicaid [id number] 2018 Medicaid [id number] Social History Date Type Detail Facility Start: 12-10-2020 Heavy tobacco smoker (finding) [facility] Sex Assigned At Female [facility] Start: 02-11-2022 Tobacco smoking status NHIS Smokes tobacco daily [facility] Work Phone: History of tobacco use Cigarette Smoker [facility] Work Phone: Start: 03-12-2020 End: 02-11-2022 Cigarettes smoked current (pack per day) - Reported 1 [facility] Work Phone: Start: 02-11-2022 Tobacco use and exposure Smokeless tobacco non-user [facility] Work Phone: Start: 02-15-2022 End: 05-26-2022 Alcohol intake Current drinker of alcohol (finding) [facility] Start: 02-12-2022 History SDOH Alcohol Frequency 2 [facility] Start: 02-12-2022 History SDOH Alcohol Std Drinks 4 [facility] Start: 02-12-2022 History SDOH Physical Activity DPW 3 [facility] Start: 02-11-2022 Tobacco Comment 04/05 PPD 2021. [facility] Start: 02-11-2022 Alcohol Comment occasional - liquor [facility] Start: 1980 Sex Assigned At Not on file [facility] Start: 02-01-2022 End: 03-02-2022 Exposure to SARS-CoV-2 (event) Not sure [facility] Work Phone: Start: 03-12-2020 End: 02-11-2022 Alcohol Use Disorder Identification Test - Consumption [AUDIT-C] [facility] Work Phone: How often to you hav e a drink containing alcohol? Monthly or less [facility] Work Phone: How many standard dr inks containing alcohol do you have on a typical day? 7 to 9 [facility] Work Phone: How often do you hav e 6 or more drinks on 1 occasion? Less than monthly [facility] Work Phone: Adult Depression Scr eening Assessment 4 [facility] Clinical Notes 12-11-2020 to 04-13-2023 Meghan Villa APRN.CNP - 05/26/2022 7:31 AM ESTReyna Hays - 04/16/2022 12:21 PM ESTReyna Hays - 04/12/2022 11:04 AM Margo Gil PA-C - 03/03/2022 1:28 PM ESTLaboratoryRadiology Note Date & Type Note Facility 04-13-2023 Note Patient Outreach (IN [facility]) SARI MORRIS ([id number]) 1980 F Date Time Provider Department 04/13/23 ROBERT BOLDEN During your visit today, we recorded the following information about you: Allergies As of Date: 04/13/2023 Noted Allergy Reaction EFFEXOR (VENLAFAXINE ANALOGUES) 09/22/2017 11 - Vomiting 12 - Shortness of Breath 13 - Dystonia PENICILLINS 09/22/2017 10 - Anaphylaxis Date Reviewed: 05/26/2022 Reviewed by: Pendlebury, Meghan, DEPUTY FIRE CHIEF.LIBRARY HELPER - Fully Assessed Visit Diagnosis:Encounter for screening mammogram for breast cancer [Z12.31] Order(s):[facility] SCREENING [[id number]] Order #: [id number] FUTURE Prescriptions as of 04/18/2023 - nortriptyline (PAMELOR) 25 mg capsule Take 1 capsule by mouth daily at bedtime. - ibuprofen (MOTRIN) 800 mg tablet Problem List As Of Date 04/13/2023 Noted Resolved Chronic low back pain [M54.50, G89.29] 02/04/2017 DDD (degenerative disc disease), lumbar [M51.36]02/11/2022 Cervicalgia [M54.2] 02/11/2022 Depressive disorder [F32.A] 02/15/2022 Encounter Status:Closed by RAZ PRODUSER on 04/18/[address] [facility] 05-26-2022 Note HNO ID: [id number] Author: Meghan Villa APRN.LIBRARY HELPER Service: ? Author Type: Nurse Practitioner Type: Progress Notes Filed: 05/26/2022 7:50 AM Note Text: Subjective HPI Nontoxic-appearing female presents urgent care chief complaint right ear pain. Duration of symptoms 1 week. Associated symptoms right ear pain and muffled hearing. Has not used any OTC medications. Presents today due to increasing pain. States had a hard time sleeping last night. States she is having a hard time hearing. Has had chronic ear infections in the past . Was told by Her eardrum was being destroyed by bacteria. Had multiple perforations in the past. Presents today for evaluation. Denies any fever body aches chills productive cough chest pain shortness of breath pleuritic pain hemoptysis nausea vomiting abdominal pain change in bowel or bladder habits. Past medical history prescription medication use and allergies reviewed. .Patient presents with: Ear Pain: Right ear pain x 1 week PAST MEDICAL HISTORY Diagnosis Date ADD (attention deficit disorder) Anxiety 03/07/2019 Chronic low back pain 02/04/2017 DDD (degenerative disc disease), lumbar 2011 Episodic tension type headache 07/27/2019 Gastric bypass status for obesity 2007 GERD (gastroesophageal reflux disease) 03/06/2019 Hypertensive disorder 03/07/2019 Iron deficiency anemia 2018 Menometrorrhagia 2020 Upper GI bleed 09/01/2017 PAST SURGICAL HISTORY Procedure Laterality Date ESOPHAGOGASTRODUODENOSCOPY TRANSORAL DIAGNOSTIC 09/01/2017 EGD - status post Kirby-en-Y gastric bypass with marginal ulceration GASTRIC BYPASS HX 2007 [facility] HYSTEROSCOPY,W/ENDOMETRIAL ABLATION 10/2020 LAPAROSCOPY W TOTAL HYSTERECTOMY UTERUS 250 GM/< 04/27/2021 bilateral salpingectomy LAPAROSCOPY,ENTEROLYSIS 2019 LIGATE FALLOPIAN TUBE 11/02/2004 PAST SURGICAL HISTORY OF Right 2015 ORIF, ankle surgery x 3, [id number]. TONSILLECTOMY AND ADENOIDECTOMY TOTAL ABDOM HYSTERECTOMY 05/2021 [facility]. ALLERGIES Effexor [Venlafaxine Analogues] and Penicillins MEDICATIONS nortriptyline (PAMELOR) 25 mg capsule Take 1 capsule by mouth daily at bedtime. ibuprofen (MOTRIN) 800 mg tablet FAMILY HISTORY Problem Relation Age of Onset Breast Cancer Mother Hypertension Mother Hypertension Father Prostate Cancer Father Heart Attack Father No Known Problems Brother Diabetes Maternal Grandmother Heart Attack Maternal Grandfather Heart Attack Paternal Grandfather Social History Tobacco Use Smoking status: Every Day Packs/day: 1.00 Years: 24.00 Pack years: 24.00 Types: Cigarettes Smokeless tobacco: Never Tobacco comments: 04/05. Substance Use Topics Alcohol use: Yes Comment: occasional - liquor Drug use: Never BP 148/84 Pulse 88 Temp 36.6 ?C (97.9 ?F) (Tympanic) Resp 16 Wt 88.8 kg (195 lb 12.8 oz) BMI 33.09 kg/m? Review of Systems Constitutional: Negative for chills, fever and malaise/fatigue. HENT: Positive for ear pain. Negative for congestion, ear discharge, sinus pain and sore throat. Eyes: Negative for blurred vision, pain, discharge and redness. Respiratory: Negative for cough, hemoptysis, sputum production, shortness of breath, wheezing and stridor. Cardiovascular: Negative for chest pain. Gastrointestinal: Negative for abdominal pain, diarrhea, nausea and vomiting. Musculoskeletal: Negative for myalgias. Skin: Negative for itching and rash. Neurological: Negative for dizziness and headaches. Objective Physical Exam Constitutional: General: She is not in acute distress. Appearance: She is not diaphoretic. HENT: Head: Normocephalic. Right Ear: Tympanic membrane, ear canal and external ear normal. Left Ear: Tympanic membrane, ear canal and external ear normal. Nose: Nose normal. Mouth/Throat: Mouth: Mucous membranes are moist. Pharynx: Oropharynx is clear. No oropharyngeal exudate or posterior oropharyngeal erythema. Eyes: Conjunctiva/sclera: Conjunctivae normal. Pupils: Pupils are equal, round, and reactive to light. Cardiovascular: Rate and Rhythm: Normal rate and regular rhythm. Heart sounds: Normal heart sounds. Pulmonary: Effort: Pulmonary effort is normal. No tachypnea, accessory muscle usage or respiratory distress. Breath sounds: Normal breath sounds. No stridor. No wheezing, rhonchi or rales. Abdominal: Palpations: Abdomen is soft. Musculoskeletal: Cervical back: Normal range of motion and neck supple. No rigidity or tenderness. Lymphadenopathy: Cervical: No cervical adenopathy. Skin: General: Skin is warm and dry. Neurological: Mental Status: She is alert and oriented to person, place, and time. ASSESSMENT/PLAN: 1. Otalgia, right - ICD9: 388.70, ICD10: H92.01 Patient diagnosed with otalgia of right ear. No evidence of bacterial infection. Was instructed to follow-up with ENT for reevaluation. Patient verb (more content not included)... [facility] 05-26-2022 History of Present illness Narrative Subjective HPI Nontoxic-appearing female presents urgent care chief complaint right ear pain. Duration of symptoms 1 week. Associated symptoms right ear pain and muffled hearing. Has not used any OTC medications. Presents today due to increasing pain. States had a hard time sleeping last night. States she is having a hard time hearing. Has had chronic ear infections in the past . Was told by Her eardrum was being destroyed by bacteria. Had multiple perforations in the past. Presents today for evaluation. Denies any fever body aches chills productive cough chest pain shortness of breath pleuritic pain hemoptysis nausea vomiting abdominal pain change in bowel or bladder habits. Past medical history prescription medication use and allergies reviewed. .Patient presents with: Ear Pain: Right ear pain x 1 week PAST MEDICAL HISTORY Diagnosis Date ADD (attention deficit disorder) Anxiety 03/07/2019 Chronic low back pain 02/04/2017 DDD (degenerative disc disease), lumbar 2011 Episodic tension type headache 07/27/2019 Gastric bypass status for obesity 2006 GERD (gastroesophageal reflux disease) 03/06/2019 Hypertensive disorder 03/07/2019 Iron deficiency anemia 2018 Menometrorrhagia 2020 Upper GI bleed 09/01/2017 PAST SURGICAL HISTORY Procedure Laterality Date ESOPHAGOGASTRODUODENOSCOPY TRANSORAL DIAGNOSTIC 09/01/2017 EGD - status post Kirby-en-Y gastric bypass with marginal ulceration GASTRIC BYPASS HX 2006 [facility] HYSTEROSCOPY,W/ENDOMETRIAL ABLATION 10/2020 LAPAROSCOPY W TOTAL HYSTERECTOMY UTERUS 250 GM/< 04/27/2021 bilateral salpingectomy LAPAROSCOPY,ENTEROLYSIS 2019 LIGATE FALLOPIAN TUBE 11/02/2004 PAST SURGICAL HISTORY OF Right 2015 ORIF, ankle surgery x 3, [id number]. TONSILLECTOMY & ADENOIDECTOMY <AGE 10 TOTAL ABDOM HYSTERECTOMY 05/2021 [facility]. ALLERGIES Effexor [Venlafaxine Analogues] and Penicillins MEDICATIONS nortriptyline (PAMELOR) 25 mg capsule Take 1 capsule by mouth daily at bedtime. ibuprofen (MOTRIN) 800 mg tablet FAMILY HISTORY Problem Relation Age of Onset Breast Cancer Mother Hypertension Mother Hypertension Father Prostate Cancer Father Heart Attack Father No Known Problems Brother Diabetes Maternal Grandmother Heart Attack Maternal Grandfather Heart Attack Paternal Grandfather Social History Tobacco Use Smoking status: Every Day Packs/day: 1.00 Years: 24.00 Pack years: 24.00 Types: Cigarettes Smokeless tobacco: Never Tobacco comments: 04/05. Substance Use Topics Alcohol use: Yes Comment: occasional - liquor Drug use: Never BP 148/84 Pulse 88 Temp 36.6 C (97.9 F) (Tympanic) Resp 16 Wt 88.8 kg (195 lb 12.8 oz) BMI 33.09 kg/m Review of Systems Constitutional: Negative for chills, fever and malaise/fatigue. HENT: Positive for ear pain. Negative for congestion, ear discharge, sinus pain and sore throat. Eyes: Negative for blurred vision, pain, discharge and redness. Respiratory: Negative for cough, hemoptysis, sputum production, shortness of breath, wheezing and stridor. Cardiovascular: Negative for chest pain. Gastrointestinal: Negative for abdominal pain, diarrhea, nausea and vomiting. Musculoskeletal: Negative for myalgias. Skin: Negative for itching and rash. Neurological: Negative for dizziness and headaches. Objective Physical Exam Constitutional: General: She is not in acute distress. Appearance: She is not diaphoretic. HENT: Head: Normocephalic. Right Ear: Tympanic membrane, ear canal and external ear normal. Left Ear: Tympanic membrane, ear canal and external ear normal. Nose: Nose normal. Mouth/Throat: Mouth: Mucous membranes are moist. Pharynx: Oropharynx is clear. No oropharyngeal exudate or posterior oropharyngeal erythema. Eyes: Conjunctiva/sclera: Conjunctivae normal. Pupils: Pupils are equal, round, and reactive to light. Cardiovascular: Rate and Rhythm: Normal rate and regular rhythm. Heart sounds: Normal heart sounds. Pulmonary: Effort: Pulmonary effort is normal. No tachypnea, accessory muscle usage or respiratory distress. Breath sounds: Normal breath sounds. No stridor. No wheezing, rhonchi or rales. Abdominal: Palpations: Abdomen is soft. Musculoskeletal: Cervical back: Normal range of motion and neck supple. No rigidity or tenderness. Lymphadenopathy: Cervical: No cervical adenopathy. Skin: General: Skin is warm and dry. Neurological: Mental Status: She is alert and oriented to person, place, and time. ASSESSMENT/PLAN: 1. Otalgia, right - ICD9: 388.70, ICD10: H92.01 Patient diagnosed with otalgia of right ear. No evidence of bacterial infection. Was instructed to follow-up with ENT for reevaluation. Patient verbalized understand agrees with plan of care. Red flags for prompt reevaluation discussed. Meghan Villa APRN.ROSEMARY documented in this encounter [facility] 04-16-2022 History of Present illness Narrative POPULATION HEALTH NAVIGATION OUTREACH Action/FYI RP OUTREACH: LVM for Patient to call [phone] to schedule PT Consult Pt identified by name and : NO Outreach Outcome/Action Unable to reach patient: Left message Did you use a PCP flex slot to schedule this appointment? No Reason for Outreach Care Gap or Scheduling/Wellness visits Payer: Payor: [employer] / Plan: [employer] / Product Type: Medicaid / Care Gap Reviewed:: N/A Reminder: Reminder note to check Health Maintenance for items below Health Maintenance items due: HEPATITIS B(1 of 3 - 3-dose series) Never done COVID-19 VACCINE(1) Never done PNEUMOCOCCAL(1 - PCV) Never done DTAP,TDAP,TD(1 - Tdap) Never done PAP TESTING Never done HPV TESTING Never done INFLUENZA(1) Never done Navigation Signature: Reyna Hays April 16, 2022 12:21 PM documented in this encounter [facility] 04-12-2022 History of Present illness Narrative POPULATION HEALTH NAVIGATION OUTREACH Action/FYI RP OUTREACH: LVM for Patient to call [phone] to schedule PT Consult Pt identified by name and : NO Outreach Outcome/Action Unable to reach patient: Left message Did you use a PCP flex slot to schedule this appointment? No Reason for Outreach Care Gap or Scheduling/Wellness visits Payer: Payor: [facility] MEDICAID / Plan: [facility] [employer]ICA[employer] / Product Type: Medicaid / Care Gap Reviewed:: N/A Reminder: Reminder note to check Health Maintenance for items below Health Maintenance items due: HEPATITIS B(1 of 3 - 3-dose series) Never done COVID-19 VACCINE(1) Never done PNEUMOCOCCAL(1 - PCV) Never done DTAP,TDAP,TD(1 - Tdap) Never done PAP TESTING Never done HPV TESTING Never done INFLUENZA(1) Never done Navigation Signature: Reyna Hays April 12, 2022 11:05 AM documented in this encounter [facility] 03-03-2022 History of Present illness Narrative Images from the original note were not included. Trevor Gil PA-C [facility] [address] [place] [address] 03/03/2022 ASSESSMENT AND PLAN: Assessment : Encounter Diagnosis ICD-10-CM 1. Chronic bilateral low back pain without sciatica M54.50 CONSULT TO PHYSICAL THERAPY G89.29 CONSULT TO CHIROPRACTOR CONSULT OSTEOPATHIC NEUROMUSCULOSKELETAL MEDICINE XR LUMBAR MOTION 4V AP/LAT/ FLEX/EXT cyclobenzaprine (FLEXERIL) 10 mg tablet Discussion: Ms. Morris is a 41-year-old female here for evaluation of central lumbosacral low bck pain with minimal radiation to the buttocks area. 10 years of global LBP--hasn't worked in that time frame--was a [employer] prior to that. Tried PT a few years ago (?5-6) and indicates that the symptoms are worse as a result of the PT. She cried throughout 2 visits and then was D/C'd due to lack of improvement. Takes ibuprofen 800mg--6-7 per day. Has hypertension today. She is a long-term smoker--down to 1/2ppd now. Has more trouble laying on the left side. She mobilizes somewhat slowly from sitting to standing and tends to favor her right leg as she walks. She leans slightly forward as she walks. There is low back pain centrally at lumbosacral junction mostly in the midline and over lumbar paraspinals and right PSIS There is less in the way of pain in the right sciatic notch and greater trochanters are nontender. Low back motion reproduces pain in all directions but she has normal motion in each direction She has normal strength and sensation and reflexes are globally hyporeflexic today. There are no studies in [facility] to review that are pertinent to her low back. I have given her multiple options for conservative management and encouraged her to try 1 or more of the modalities ordered including PT, chiropractic, osteopathic manipulation. I discussed the importance of smoking cessation from a spine standpoint. I also discussed the importance of cutting way back on her ibuprofen use. She admits to taking nearly 6000 mg a day and this certainly could be tied in to her hypertension that she experienced in today's office visit. We also strongly recommended that she follow-up with her PCP regarding her hypertension, stop smoking, and stop using any more than 2-3 ibuprofen per day. Once she has finished the above conservative management, we would possibly be able to consider either CT or MRI scan of the low back to evaluate further for chronic central low back pain. She may possibly benefit from lumbar facet injections at lumbosacral junction and if this helps, she may benefit from RFA. Muscle relaxants will be for short-term use only--to help her make it through PT. I would not recommend refills. Plan : DIAGNOSTIC TESTING: -X-ray views will be obtained to better evaluate bony structures. -Dynamic plain radiographs of the Lumbar spine are ordered. REFERAL FOR SERVICES: -Physical therapy will be instituted. -Referral to chiropractic and osteopathic MEDICATIONS: -See prescribed medication list for this encounter. -We discussed importance of cutting way back on her daily use of ibuprofen ACTIVITY RECOMMENDATIONS: -The patient is encouraged to avoid bed rest and maintain normal activity. TOBACCO RECOMMENDATIONS: -Tobacco cessation discussed and encouraged. FOLLOW-UP: -The patient is instructed to return after six weeks of therapy. This document has been created with the use of voice recognition technology. It may contain inaccuracies: (e.g. misspellings, inaccurate syntax or word sense) that have escaped review. Time spent: 45 minutes today with this patient visit. This includes [id number] time, review of chart records regarding conservative care history, spine-pertinent imaging, and communication/care coordination with referring provider, problem-specific history-taking and counseling/education regarding treatment options. cc: Robert Bolden [address] [place] [id number] Results of consultation to be transmitted via electronic medical record for those providers who practice within [facility] or with access to [employer] via [facility], or via letter. ____ ################################## ################################## #### CHIEF COMPLAINT: Patient is here for lower back pain. Per patient, has pain all over. Level of the pain is at 5.5/10. Has this pain for years and it is getting worse. HPI: see Discussion above History of bowel or bladder dysfunction (not IBS or constipation): No History of previous spinal surgery: No History of spinal fracture: No Work Status: currently unemployed NON-OPERATIVE CARE: Medication(s): She has tried the following for relief of her symptoms: OTC NSAIDs (Aleve or Ibuprofen/Advil/Motrin) Physical Therapy: She has had physical therapy for her current symptoms. This was completed years ago. The therapy did not provide any significant relief. Spinal Injections: She has not gotten prior spinal injections. Other: None Current Outpatient Medications Medication Sig Dispense Refill nortriptyline (PAMELOR) 25 mg capsule Take 1 capsule by mouth daily at bedtime. 30 capsule 1 ibuprofen (MOTRIN) 800 mg tablet 0 No current facility-administered medications for this visit. Allergies: Effexor [Venlafaxine Analogues] and Penicillins PAST MEDICAL HISTORY Diagnosis Date ADD (attention deficit disorder) Anxiety 03/07/2019 Chronic low back pain 02/04/2017 DDD (degenerative disc disease), lumbar 2011 Episodic tension type headache 07/27/2019 Gastric bypass status for obesity 2006 GERD (gastroesophageal reflux disease) 03/06/2019 Hypertensive disorder 03/07/2019 Iron deficiency anemia 2017 Menometrorrhagia 2020 Upper GI bleed 09/01/2017 PAST SURGICAL HISTORY Procedure Laterality Date ESOPHAGOGASTRODUODENOSCOPY TRANSORAL DIAGNOSTIC 09/01/2017 EGD - status post Kirby-en-Y gastric bypass with marginal ulceration GASTRIC BYPASS HX 2006 [facility] HYSTEROSCOPY,W/ENDOMETRIAL ABLATION 10/2020 LAPAROSCOPY W TOTAL HYSTERECTOMY UTERUS 250 GM/< 04/27/2021 bilateral salpingectomy LAPAROSCOPY,ENTEROLYSIS 2019 LIGATE FALLOPIAN TUBE 11/02/2004 PAST SURGICAL HISTORY OF Right 2015 ORIF, ankle surgery x 3, [id number]. TONSILLECTOMY & ADENOIDECTOMY <AGE 10 TOTAL ABDOM HYSTERECTOMY 05/2021 [facility]. Social History Tobacco Use Smoking status: Every Day Packs/day: 1.00 Years: 24.00 Pack years: 24.00 Types: Cigarettes Smokeless tobacco: Never Tobacco comments: 04/05. Substance Use Topics Alcohol use: Yes Comment: occasional - liquor Drug use: Never FAMILY HISTORY Problem Relation Age of Onset Breast Cancer Mother Hypertension Mother Hypertension Father Prostate Cancer Father Heart Attack Father No Known Problems Brother Diabetes Maternal Grandmother Heart Attack Maternal Grandfather Heart Attack Paternal Grandfather REVIEW OF SYSTEMS: Constitutional: (-) Fever/Chills (-) Night Sweats (-) Weight Gain (-) Weight Loss (-) Fatigue Gastrointestinal: (-) Abdominal Pain (-) Diarrhea (-) Constipation (-) Nausea/Vomiting (-) Heart Burn Cardiovascular: (-) Chest Pain (-) Palpitations (-) Lightheadedness (-) Swelling of Ankles (-) Hx Heart Surgery/Stent Respiratory: (-) Short of Breath (-) Cough (-) Snoring Neurologic: (+) Headache (+) Blurry Vision (-) Fainting Skin: (-) Rashes (-) Itching (-) Other Lesions Psychiatric: (+) Depression (-) Anxiety (-) Suicidal Thoughts Genitourinary: (-) Frequency (-) Urgency Endocrine: (-) Thyroid Disorder (-) Diabetes Hematologic: (-) Prolonged Bleeding (-) Easy Bruising ################################## ################################## ################################## ########################### PHYSICAL EXAM: Blood pressure 156/114, pulse 91, height 163.8 cm (5' 4.5 ), weight 87.5 kg (192 lb 14.4 oz), SpO2 98 %. Body mass index is 32.6 kg/m . General: Patient is a(n) average historian. The patient appears approximately the recorded age and is sitting comfortably in the examining room. The patient is short in stature and is obese in appearance. This individual has difficulty arising from a sitting position and does have difficulty acquiring a full, upright position when standing. Station and Gait: flexed posture and antalgic gait leaning forward and favoring the right lower extremity The patient is able to walk in a tandem gait. MENTAL STATUS EXAMINATION: The patient was casually attired and smelled of cigarette smoke. The patient had good eye contact and rapport was average to establish. The patient appeared to be alert and oriented in all spheres. The patient's overall medical judgment appeared to be fair.The patient's motivation for treatment was judged based on today's encounter to be fair. SPINE: Lumbar Lordosis: Normal Thoracic Kyphosis: Normal RANGE OF MOTION: Flexion: normal, as expected for age and weight Pain: Yes, axial pain Extension: normal, as expected for age and weight Pain: Yes, axial pain Lateral Bending: Right normal, as expected for age and weight Pain: Yes, axial pain Left normal, as expected for age and weight Pain: Yes, axial pain PALPATION TENDERNESS: Moderate tenderness at: lumbar region and posterior pelvis Hyperesthesia present: No Regional symptoms present: No Increased pain with axial loading: No Distraction: Normal Pain responses: appropriate NEUROLOGIC EXAM: MOTOR: Walk on Toes: Right: Yes Left: Yes Walk on Heels: Right: Yes, but poorly Left: Yes Requires verbal cues to minimize cog-wheel or give-way resistance: No Hip Flexor R: 5/5 L: 5/5 Hip Adductor R: 5/5 L: 5/5 Hip Abductor R: 5/5 L: 5/5 Knee Extension R: 5/5 L: 5/5 Foot Dorsiflexion R: +4/5 L: 5/5 Foot Plantar Flexion R: 5/5 L: 5/5 Ext Hallicus Longus R: 4/5 L: 5/5 Toe Extensors R: 5/5 L: 5/5 SENSATION to Light Touch: Lumbar: L2-S1 symmetrically normal. REFLEXES: Lower Extremity: All Lower Extremity reflexes symmetrically normal. Clonus: R: 0 beats/Normal L: 0 beats/Normal Babinski Sign: Negative bilaterally. Upper Extremity: All Upper Extremity reflexes symmetrically normal. Napier's Sign: Negative bilaterally. VASCULAR: Skin appearance: Right: Warm/pink Left: Warm/pink Capillary refill: Right: brisk Left: brisk ADDITIONAL MUSCULOSKELETAL EXAM: HIP/PELVIS EXAM: Tenderness over the PSIS: Right: Yes Left: No Greater Trochanteric pain: Right: No Left: No Motion restriction: Right: No Left: No Pain: Right: No Left: No SPECIAL TESTS: Straight Leg Raise: negative bilaterally Contralateral Straight Leg Raise: negative bilaterally IMAGING STUDIES: See discussion above documented in this encounter [facility] 03-03-2022 Miscellaneous Notes March 03, 2022 PID: [id number] Sari Morris [address] [place] [address] Dear Ms. Morris, We are pleased to inform you that the results of your recent breast imaging exam on 03/02/2022 are normal. Early detection of cancer is very important. We also understand recommendations regarding breast cancer screening are controversial. Please discuss with your primary care provider which strategy is best for you and whether a mammogram is right for you. Your imaging studies and report will be kept on file at [facility] as part of your permanent medical record and are available for your continuing care. Thank you for allowing us to help in meeting your health care needs. Sincerely, Dr. Fairbanks Interpreting Radiologist [facility] (Normal over 40) documented in this encounter [facility] 03-02-2022 History of Present illness Narrative Radiology Service Progress Note PATIENT NAME: aSri Morris DATE OF SERVICE: March 02, 2022 TIME: 1:46 PM PATIENT IDENTITY VERIFICATION COMPLETED USING TWO (2) IDENTIFIERS: Name and Date of confirmed by patient verbally. FALL SCREENING: Has the patient had 2 falls in the last year or 1 fall with injury or currently using an Ambulatory Assistive Device (Walker, Cane, Wheelchair, Crutches, etc.)? No PATIENT GENDER DATA: Female. status: : No status: NO. PATIENT RELEVANT IMPLANT DATA REVIEWED: Not Applicable RADIOLOGY DEPARTMENT: Mammography PERIPHERAL IV DATA: Not applicable SIGNED BY: RT Payal(R) March 02, 2022 1:46 PM documented in this encounter [facility] 12-11-2020 Note . MICRO - Microbiology PROCEDURE: Affirm Pathogens DNA Direct Probe [*1] SOURCE: Vaginal Fluid BODY SITE: Cervix COLLECTED DATE/TIME: 12/10/2020 12:05 EDT RECEIVED DATE/TIME: 12/10/2020 20:53 EDT START DATE/TIME: 12/10/2020 20:53 EDT FREE TEXT SOURCE: FINAL REPORTS Final Report [] Verified Date/Time/Personnel: 12/11/2020 08:16 EDT Gardnerella vaginalis DNA Probe Positive Trichomonas vaginalis DNA Probe Negative Gabriella species DNA Probe Negative Performing Locations *1: This test was performed at: [facility], [address] [place] [address], [id number] , [facility] ([place]) Comment on above: Performed By: #### A FFIRM #### [address] [address] Evaluation + Plan note Future Appointments Appointment Date:02/10/2021 04:00:00 PM Scheduled Provider:SMITHA DODD DO Location:[facility] Appointment Type:PC OV Future Scheduled TestsBasic Metabolic Panel 08/29/20Basic Metabolic Panel 06/11/20Iron Level 06/11/20Magnesium Level 06/11/20Vitamin B12 Level 06/11/20Complete Blood Count 08/29/20Complete Blood Count 06/11/20US Pelvis Non-OB Complete 12/10/20US Pelvis Non-OB W/Transvaginal 12/11/20 [facility] Evaluation note Diagnosis Encounter for screening mammogram for breast cancer [facility] Diagnosis Chronic bilateral low back pain without sciatica- Primary [facility]* Diagnosis Otalgia, right- Primary documented in this encounter [facility] note* Diagnosis Encounter for screening mammogram for breast cancer [facility] N[facility] No data available for this section [facility] Hospital Discharge instructions No data available for this section [facility] Reason for referral (narrative)* Diagnostic Procedure Only (Routine) - Pending Review Specialty Diagnoses / Procedures Referred By Contac t Referred To Contact BR IMAGING Diagnoses Encounter for screening mammogram for breast cancer Procedures JAZMYN SCREENING SCREENING MAMMOGRAPHY BI 2-VIEW BREAST INC CAD Robert Bolden MD [address] [place] [address] [facility] [address] [place] [address] Referral ID Status Reason Start Date Expiration Date Visits Requested Visits Authorized [id number] Pending Review Auto-Generat ed Referral 2 03/19/2023 1 1 [facility] for referral (narrative)* Diagnostic Procedure Only (Routine) - Pending Review Specialty Diagnoses / Procedures Referred By Contac t Referred To Contact XR IMAGING Diagnoses Chronic bilateral low back pain without sciatica Procedures XR LUMBAR MOTION 4V AP/LAT/ FLEX/EXT RADEX SPINE LUMBOSACRAL MINIMUM 4 VIEWS Trevor Gil PA-C [address] [place] [address] Xr Imaging Referral ID Status Reason Start Date Expiration Date Visits Requested Visits Authorized [id number] Pending Review Auto-Generat ed Referral 2 04/02/2023 1 1 * Consult, Test, Treat (Routine) - Pending Review Specialty Diagnoses / Procedures Referred By Contac t Referred To Contact Diagnoses Chronic bilateral low back pain without sciatica Procedures CONSULT TO CHIROPRACTOR OFFICE/OUTPATIENT [facility] MDM 60-74 MINUTES Trevor Gil PA-C [address] [place] [address] Referral ID Status Reason Start Date Expiration Date Visits Requested Visits Authorized [id number] Pending Review PCP Requested Referral 2 03/03/2023 1 1 * - Pending Review Specialty Diagnoses / Procedures Referred By Contac t Referred To Contact Diagnoses Chronic bilateral low back pain without sciatica Procedures CONSULT TO PHYSICAL THERAPY Trevor Gil PA-C [address] [place] [address] Referral ID Status Reason Start Date Expiration Date V isits Requested Visits Authorized [id number] Pending Review 03/03/2022 06/01/2022 1 1 [facility] for referral (narrative)* Diagnostic Procedure Only (Routine) - Closed Specialty Diagnoses / Procedures Referred By Contac t Referred To Contact BR IMAGING Diagnoses Encounter for screening mammogram for breast cancer Procedures JAZMYN SCREENING SCREENING MAMMOGRAPHY BI 2-VIEW BREAST INC Robert Urbina MD [address] [place] [address] [facility] [address] [place] [address] Referral ID Status Reason Start Date Expiration Date V isits Requested Visits Authorized [id number] Closed Auto-Generate d Referral 02/17/2022 03/19/2023 1 1 [facility] for visit Narrative* Diagnostic Procedure Only (Routine) - Closed Specialty Diagnoses / Procedures Referred By Contac t Referred To Contact BR IMAGING Diagnoses Encounter for screening mammogram for breast cancer Procedures JAZMYN SCREENING SCREENING MAMMOGRAPHY BI 2-VIEW BREAST INC Robert Urbina MD [address] [place] [address] [facility] [address] [place] [address] Referral ID Status Reason Start Date Expiration Date V isits Requested Visits Authorized [id number] Closed Auto-Generate d Referral 02/17/2022 03/19/2023 1 1 [facility] Summary Purpose Family History No Family History Records FoundNo Family History Records Found Advance Directives No Advanced Directives Records FoundNo Advanced Directives Records Found Additional Source Comments INFORMATION SOURCE (unrecogn ized section and content) DATE CREATED AUTHOR 01/30/2021 [facility] ([place]) DATE CREATED AUTHOR AUTHOR'S ORGANIZ ATION 04/18/[address] [facility] Source Comments (unrecognize d section and content) In the event this informatio n is protected by the Federal Confidentiality of Alcohol and Drug Abuse Patient Records regulations: The Federal rules restrict any use of the information to criminally investigate or prosecute any alcohol or drug abuse patient.[facility] the event this information is protected by the Federal Confidentiality of Alcohol and Drug Abuse Patient Records regulations: The Federal rules restrict any use of the information to criminally investigate or prosecute any alcohol or drug abuse patient.[facility] the event this information is protected by the Federal Confidentiality of Alcohol and Drug Abuse Patient Records regulations: The Federal rules restrict any use of the information to criminally investigate or prosecute any alcohol or drug abuse patient.[facility] the event this information is protected by the Federal Confidentiality of Alcohol and Drug Abuse Patient Records regulations: The Federal rules restrict any use of the information to criminally investigate or prosecute any alcohol or drug abuse patient.[facility] the event this information is protected by the Federal Confidentiality of Alcohol and Drug Abuse Patient Records regulations: The Federal rules restrict any use of the information to criminally investigate or prosecute any alcohol or drug abuse patient.[facility] the event this information is protected by the Federal Confidentiality of Alcohol and Drug Abuse Patient Records regulations: The Federal rules restrict any use of the information to criminally investigate or prosecute any alcohol or drug abuse patient.[facility] the event this information is protected by the Federal Confidentiality of Alcohol and Drug Abuse Patient Records regulations: The Federal rules restrict any use of the information to criminally investigate or prosecute any alcohol or drug abuse patient.[facility] Care Teams (unrecognized sec tion and content) Aromatherapist Relationship Specialty Start Date End Date Robert Bolden MD [address], [place] [id number] PCP - General Internal Medicine 02/11/22 Aromatherapist Relationship Specialty Start Date End Date Robert Bolden MD [address], [place] [address] PCP - General Internal Medicine 02/11/22 Aromatherapist Relationship Specialty Start Date End Date Robert Bolden MD [address], [place] [address] PCP - General Internal Medicine 02/11/22 Aromatherapist Relationship Specialty Start Date End Date Robert Bolden MD [address] [facility] [place], [place] [address] PCP - General Internal Medicine 02/11/22 Aromatherapist Relationship Specialty Start Date End Date Robert Bolden MD [address] [facility] [place] [address] PCP - General Internal Medicine 02/11/22 Reason for Visit (unrecogniz ed section and content) Reason Comments New Patient Low Back Pain Reason Comments Ear Pain Right ear pain x 1 w [place] FOR RECORDS PERTAINING TO PATIENTS WHO ARE OR HAVE BEEN ENROLLED IN A CHEMICAL DEPENDENCY/SUBSTANCEABUSE PROGRAM, SOME INFORMATION MAY BE OMITTED. This clinical summary was aggregated from multiple sources. Caution should be exercised in using it in the provision of clinical care. This summary normalizes information from multiple sources, and as a consequence, information in this document may materially change the coding, format and clinical context of patient data. In addition, data may be omitted in some cases. CLINICAL DECISIONS SHOULD BE BASED ON THE PRIMARY CLINICAL RECORDS. [email or web address] provides no warranty or guarantee of the accuracy or completeness of information in this document.
--- NOTE | 2024-01-26 21:36 | ED.RN ---
Patient walked out without being seen, when questioned by this RN, the patient stated I've been waiting too damn long, I ain't waiting any longer.
== END 2024-01-26 21:37 | disposition left against medical advice (07) ==
LOC: ED 20:31
DX: Z53.21 Procedure and treatment not carried out due to patient leaving prior to being seen by health care provider (principal)
CPT/HCPCS: 99282

== ENCOUNTER 2024-08-09 00:48 | Emergency (ER) | payer OTHER, SELFPAY ==
[2024-08-09 00:49] VITALS: BP 158/80; PULSE 79; RESP 18; TEMP 36.4; O2SAT 100; BMI 37.1
--- NOTE | 2024-08-09 01:03 | EDS_ITS ---
HPI History of Present Illness Chief Complaint: Upper Extremity Injury Informant: patient Narrative Narrative: [id number] female states that she fell in the dark day before yesterday, injuring her left hand, she think she fell on the outstretched palm. She been having pain, swelling, bruising that has been persistent. Denies any other pain or injury including the wrist. No numbness. PFSH PFSH Medical History Wears dentures Wears glasses Depression Anxiety Alcohol use Arthritis Back pain Migraine headache Gastric reflux Smoker History of echocardiogram History of stress test Hypertension RIGHT ANKLE SURGERY X3 Home Medications ?Medication ?Instructions ?Recorded ?Last Taken ?Type ibuprofen 200 mg tablet (Advil) 200 mg PO Q4H PRN 01/03 07/26 Unknown History tramadol 50 mg tablet 50 mg PO Q6H PRN pain 2 days #6 08/09/24 Unknown Rx tabs Allergy/AdvReac Type Severity Reaction Status Date / Time Penicillins Allergy Severe Anaphylaxis Verified 08/09/24 00:49 venlafaxine HCl (From Allergy Severe Nausea/Vom/ Verified 08/09/24 00:49 Effexor) Diarrhea Family History Grandmother Hypertension Mother Hypertension Father Hypertension Heart disease Prostate cancer Surgical History History of cardiac catheterization History of gastric bypass History of tonsillectomy History of tubal ligation Social History Smoking Status: Current every day smoker tobacco type: cigarettes ROS ROS ED Constitutional Constitutional ED: Denies chills or fever(s) Musculoskeletal Musculoskeletal: Reports extremity pain; Denies neck pain Integumentary Denies Abrasions, rash or wounds Neurologic Neurologic: Denies paresthesias or weakness EXAM Physical Exam Const Vital Signs: 08/09/24 00:49 Temperature 97.6 F L Temperature Source Oral Pulse Rate 79 Respiratory Rate 18 Blood Pressure 158/80 H Blood Pressure Mean 106 Pulse Ox 100 Oxygen Delivery Method Room Air Positive well nourished and well developed General Appearance ED: well developed and NAD Neck full ROM and supple Back/Spine normal ROM and normal to inspection Extremity Extremity Narrative: Left upper extremity: No pain or tenderness in the shoulder, elbow, wrist or the area/compartments in between which are benign. With regards to the hand, there is some swelling about the MCPJ #2-3, and tenderness throughout those areas as well as the associated metacarpals, less tender at metacarpal #4, #5 is nontender. There are no gross deformities, but there is bruising in the palm opposite metacarpals 2 and 3, the thenar and hyperthenar eminence areas are benign and not swollen or ecchymotic. She can move the thumb around without difficulty and it is nontender throughout. She can flex all FDP and FDS tendons, the index and middle fingers are limited with regards to FDS flexion. Extensor mechanisms are intact. No rotational deformities. Neuro oriented x3, no focal motor deficits and no sensory deficits noted Sensorium / Orientation: alert Psych mental status grossly normal and thought process normal Skin no wounds Rashes: no rashes MDM MDM MDM Narrative Medical decision making narrative: Three-view x-ray series of the left hand negative for acute fracture or dislocation on my interpretation, radiology in agreement. Patient wanting a prescription for something for pain. She has a history of substance abuse so I checked an [place]AR[place] report it is negative for the past 2 years and giving her a short course of some tramadol and an Kwabena wrap at her request as well. Radiography Diagnostic Testing: Clinical Impression(s) from Imaging Studies Hand X-Ray 08/09/24 01:35 IMPRESSION: No fracture or dislocation. Reading Location: [facility] Discharge Plan Triage Chief Complaint: Upper Extremity Injury ED Provider: Hay Huffman Dx/Rx/DC Orders Clinical Impression: Contusion of left hand Instructions: ED Hand Contusion Prescriptions: New tramadol 50 mg tablet 50 mg PO Q6H PRN (Reason: pain) 2 Days Qty: 6 0RF No Action ibuprofen [Advil] 200 mg tablet 200 mg PO Q4H PRN Primary Care Provider: Care Physician,No Primary Referrals: Brett Mirza MD [Med Staff - Active Staff] - 10-14 Days if not better (with regards to moving your fingers) Print Language: Serbian Disposition Disposition: Home, Self Care Discharge Date/Time: 08/09/24 02:32
--- NOTE | 2024-08-09 01:35 | RAD_ITS ---
PROCEDURE: HAND MIN 3 VIEWS 08/09/2024 REASON FOR EXAM: INJURY TECHNIQUE: 3 view(s) of the left hand COMPARISON: None available FINDINGS: No fracture or dislocation. The joint spaces appear within limits. Visualized soft tissues appear within limits. RAD/Hand Min 3 Views IMPRESSION: No fracture or dislocation. Reading Location: [id number]
[2024-08-09 02:22] VITALS: BP 181/96; PULSE 72; RESP 18; TEMP 36.4; O2SAT 100
[2024-08-09] MEDS: Naproxen 500 MG Tablet PO (02:29)
[2024-08-09] MEDS: traMADol 50 MG Tablet PO (02:29)
== END 2024-08-09 02:32 | disposition home or self-care (01) ==
PROVIDERS: Emergency Provider Emergency Medicine; Visit Provider Emergency Medicine
DX: S60.222A Contusion of left hand, initial encounter (principal); W19.XXXA Unspecified fall, initial encounter; F17.210 Nicotine dependence, cigarettes, uncomplicated; Z87.898 Personal history of other specified conditions
CPT/HCPCS: 73130; 99283